=== PATIENT | female | born 1930 ===

== ENCOUNTER 2017-02-10 16:55 | Emergency (ER) | payer MEDICARE ==
[2017-02-10 17:02] VITALS: BMI 23.5
[2017-02-10 17:05] VITALS: BP 136/75; PULSE 80; RESP 17; TEMP 97.8; O2SAT 98
--- NOTE | 2017-02-10 17:36 | ED PDOC ---
Arrival/HPI - General Chief Complaint: ENT Problem Time Seen by Provider: 02/10/17 17:20 Historian: Patient - History of Present Illness Narrative History of Present Illness (Text): 02/10/17 17:33 86 yo female h/o HTN, CAD, CHF, Pacemaker, AV Replacement, (not diabetic patient states), presents to the ED c/o throat pain x 3 days. Mild cough. No nasal congestion, runny nose or fever. She is able to drink fluids and eat well. When she eats it irritates her throat but no odynophagia. No sensation of throat swelling. No trouble breathing. No neck pain. No headache, dizziness or lightheadedness. No weakness. PMD: Dr. Gaspar Past Medical History - Provider Review Nursing Documentation Reviewed: Yes - Infectious Disease Hx of Infectious Diseases: None - Tetanus Immunization Tetanus Immunization: Unknown - Cardiac Hx Cardiac Disorders: Yes Hx Congestive Heart Failure: Yes Hx Hypertension: Yes Hx Pacemaker: Yes - Pulmonary Hx Respiratory Disorders: No - Neurological Hx Neurological Disorder: Yes Hx Seizures: Yes - HEENT Hx HEENT Disorder: No - Renal Hx Renal Disorder: No - Endocrine/Metabolic Hx Endocrine Disorders: Yes Hx Diabetes Mellitus Type 2: Yes Hx Hypothyroidism: Yes - Hematological/Oncological Hx Blood Disorders: No - Integumentary Hx Dermatological Disorder: No - Musculoskeletal/Rheumatological Hx Falls: No - Gastrointestinal Hx Gastrointestinal Disorders: No Other/Comment: Hx Gastric Bypass - Genitourinary/Gynecological Hx Genitourinary Disorders: No - Psychiatric Hx Psychophysiologic Disorder: No Hx Depression: No Hx Emotional Abuse: No Hx Physical Abuse: No Hx Substance Use: No - Surgical History Hx Cardiac Catheterization: Yes Hx Gastric Bypass Surgery: Yes Hx Open Heart Surgery: Yes Hx Orthopedic Surgery: Yes (right hip fx 2 pins) Other/Comment: valve replacement - Anesthesia Hx Anesthesia: Yes Hx Anesthesia Reactions: No Hx Malignant Hyperthermia: No - Suicidal Assessment Feels Threatened In Home Enviroment: No Family/Social History - Physician Review Nursing Documentation Reviewed: Yes Family/Social History: No Known Family HX Smoking Status: Former Smoker Hx Alcohol Use: No Hx Substance Use: No Hx Substance Use Treatment: No Allergies/Home Meds Allergies/Adverse Reactions: Allergies aspirin Allergy (Intermediate, Verified 02/10/17 17:02) PAIN ABDOMINAL DISCOMFORT Penicillins Allergy (Mild, Verified 02/10/17 17:02) ITCHING Home Medications: Home Meds Medication Instructions Recorded Confirmed Warfarin [Coumadin] 6 mg PO DAILY 03/02/12 02/10/17 Donepezil [Aricept] 5 mg PO DAILY 10/18/13 02/10/17 Furosemide [Lasix] 40 mg PO DAILY 02/10/17 02/10/17 Mirtazapine 15 mg PO DAILY 02/10/17 02/10/17 Potassium Chloride [K-Dur 20] 20 meq PO DAILY 02/10/17 02/10/17 Simvastatin 10 mg PO DAILY 02/10/17 02/10/17 lamoTRIgine [LaMICtal] 100 mg PO BID 02/10/17 02/10/17 Review of Systems - Review of Systems Constitutional: Normal Eyes: Normal ENT: Voice Changes (mild hoarseness), Sore Throat. absent: Tinnitus, Rhinorrhea , Epistaxis, Sinus Congestion Respiratory: Cough. absent: SOB, Sputum, Wheezing Cardiovascular: Normal Gastrointestinal: Normal Genitourinary Female: Normal Musculoskeletal: Normal Skin: Normal Neurological: Normal Endocrine: Normal Hemo/Lymphatic: Normal Psychiatric: Normal Physical Exam Vital Signs Reviewed: Yes Vital Signs Temp Pulse Resp BP Pulse Ox 02/10/17 17:04 97.8 F 80 17 136/75 98 Temperature: Afebrile Blood Pressure: Normal Pulse: Regular Respiratory Rate: Normal Appearance: Positive for: Well-Appearing, Non-Toxic, Comfortable Pain Distress: None Mental Status: Positive for: Alert and Oriented X 3 - Systems Exam Head: Present: Atraumatic, Normocephalic Pupils: Present: PERRL Extroacular Muscles: Present: EOMI Conjunctiva: Present: Normal Ears: Present: Normal Mouth: Present: Moist Mucous Membranes Pharnyx: Present: ERYTHEMA, EXUDATE (right side), Muffled/Hoarse Voice (mild hoarseness; no muffled sounds). No: Uvular Deviation, Strider, Soft Palate/ Uvular Edema Neck: Present: Normal Range of Motion, Lymphadenopathy (right ant cervical LN tender). No: Bruit Respiratory/Chest: Present: Clear to Auscultation, Good Air Exchange. No: Respiratory Distress, Accessory Muscle Use Cardiovascular: Present: Regular Rate and Rhythm, Normal S1, S2. No: Murmurs Abdomen: Present: Normal Bowel Sounds. No: Tenderness, Distention, Peritoneal Signs Back: Present: Normal Inspection Upper Extremity: Present: Normal Inspection. No: Cyanosis, Edema Lower Extremity: Present: Normal Inspection. No: Edema Neurological: Present: GCS=15, CN II-XII Intact, Speech Normal Skin: Present: Warm, Dry, Normal Color. No: Rashes Psychiatric: Present: Alert, Oriented x 3, Normal Insight, Normal Concentration Medical Decision Making ED Course and Treatment: 02/10/17 17:42 86 yo female with throat pain with exam finding consistent with pharyngitis -- allergic to PCN so will give Azithromycin 500mg PO daily x 5 days and have her f/u with her PMD in 2 days. She and her son are aware that if symptoms worsen, fever, unable to drink fluids or any other concern to return to the ED. [place] used since it's patient's primary language. - Medication Orders Current Medication Orders: Discontinued Medications Azithromycin (Zithromax) 500 mg PO STAT STA PRN Reason: Protocol Stop: 02/10/17 17:30 Disposition/Present on Arrival - Present on Arrival Any Indicators Present on Arrival: No History of DVT/PE: No History of Uncontrolled Diabetes: No Urinary Catheter: No History of Decub. Ulcer: No History Surgical Site Infection Following: Orthopedic Procedures, None - Disposition Have Diagnosis and Disposition been Completed?: Yes Diagnosis: Pharyngitis Disposition: HOME/ ROUTINE Disposition Time: 17:43 Patient Plan: Discharge Patient Problems: Current Active Problems Problem Status Onset Pharyngitis Acute Condition: GOOD Discharge Instructions (ExitCare): Pharyngitis (ED) Additional Instructions: Ms. Knight, thank you for letting us take care of you today. Your provider was Dr. Zhang. You were treated for Pharyngitis. The emergency medical care you received today was directed at your acute symptoms. If you were prescribed any medication, please fill it and take as directed. It may take several days for your symptoms to resolve. Return to the Emergency Department if your symptoms worsen, do not improve, or if you have any other problems. Please contact your doctor or call one of the physicians/clinics you have been referred to that are listed on the Patient Visit Information form that is included in your discharge packet. Bring any paperwork you were given at discharge with you along with any medications you are taking to your follow up visit. Our treatment cannot replace ongoing medical care by a primary care provider (PCP) outside of the emergency department. Thank you for allowing the [facility] team to be part of your care today. If you had an X-Ray or CT scan: A Radiologist will review the ED reading if any change in treatment is needed we will contact you. If you had a blood, urine, or wound culture: It will take several days for the results, if any change in treatment is needed we will contact you. If you had an STI test: It will take 48 hours for the results. Please call after 1 week if you have not heard back. Prescriptions: Azithromycin [Zithromax] 500 mg PO DAILY #4 tablet Referrals: Kortney Gaspar DO [Primary Care Provider] - Follow up with primary
== END 2017-02-10 17:54 | disposition home or self-care (01) ==
LOC: ED 16:55
DX: J02.9 Acute pharyngitis, unspecified (principal); Z87.891 Personal history of nicotine dependence

== ENCOUNTER 2017-02-22 18:41 | Emergency (ER) | payer MEDICARE ==
[2017-02-22 18:41] VITALS: BMI 23.5
[2017-02-22 18:51] VITALS: BP 123/77; PULSE 93; RESP 16; TEMP 98.3; O2SAT 96
--- NOTE | 2017-02-22 19:40 | ED PDOC ---
Arrival/HPI - General Chief Complaint: ENT Problem Time Seen by Provider: 02/22/17 19:36 Historian: Patient - History of Present Illness Narrative History of Present Illness (Text): 02/22/17 19:40 Terra Knight is an 86 year old female who presents to the emergency department complaining of right ear pain for a few days. Patient states that her pain is on that outside of her ear and not in the inside. Patient notes that she does not have any difficulty hearing. Patient denies any nausea, fevers , chest pain, headache, or any other complaint at this time. PMD: Dr. Gaspar Time/Duration: < week Symptom Onset: Gradual Symptom Course: Unchanged Severity Level: Mild Activities at Onset: Light Context: Home Past Medical History - Provider Review Nursing Documentation Reviewed: Yes - Infectious Disease Hx of Infectious Diseases: None - Tetanus Immunization Tetanus Immunization: Unknown - Cardiac Hx Cardiac Disorders: Yes Hx Congestive Heart Failure: Yes Hx Hypertension: Yes Hx Pacemaker: Yes - Pulmonary Hx Respiratory Disorders: No - Neurological Hx Neurological Disorder: Yes Hx Seizures: Yes - HEENT Hx HEENT Disorder: No - Renal Hx Renal Disorder: No - Endocrine/Metabolic Hx Endocrine Disorders: Yes Hx Diabetes Mellitus Type 2: Yes Hx Hypothyroidism: Yes - Hematological/Oncological Hx Blood Disorders: No - Integumentary Hx Dermatological Disorder: No - Musculoskeletal/Rheumatological Hx Falls: No - Gastrointestinal Hx Gastrointestinal Disorders: Yes Other/Comment: Hx Gastric Bypass - Genitourinary/Gynecological Hx Genitourinary Disorders: No - Psychiatric Hx Psychophysiologic Disorder: No Hx Depression: No Hx Emotional Abuse: No Hx Physical Abuse: No Hx Substance Use: No - Surgical History Hx Cardiac Catheterization: Yes Hx Gastric Bypass Surgery: Yes Hx Open Heart Surgery: Yes Hx Orthopedic Surgery: Yes (right hip fx 2 pins) Other/Comment: valve replacement - Anesthesia Hx Anesthesia: Yes Hx Anesthesia Reactions: No Hx Malignant Hyperthermia: No - Suicidal Assessment Feels Threatened In Home Enviroment: No Family/Social History - Physician Review Nursing Documentation Reviewed: Yes Family/Social History: No Known Family HX Smoking Status: Former Smoker Hx Alcohol Use: No Hx Substance Use: No Hx Substance Use Treatment: No Allergies/Home Meds Allergies/Adverse Reactions: Allergies aspirin Allergy (Intermediate, Verified 02/22/17 18:48) PAIN ABDOMINAL DISCOMFORT Penicillins Allergy (Mild, Verified 02/22/17 18:48) ITCHING Home Medications: Home Meds Medication Instructions Recorded Confirmed Warfarin [Coumadin] 6 mg PO DAILY 03/02/12 02/10/17 Donepezil [Aricept] 5 mg PO DAILY 10/18/13 02/10/17 Furosemide [Lasix] 40 mg PO DAILY 02/10/17 02/10/17 Mirtazapine 15 mg PO DAILY 02/10/17 02/10/17 Potassium Chloride [K-Dur 20] 20 meq PO DAILY 02/10/17 02/10/17 Simvastatin 10 mg PO DAILY 02/10/17 02/10/17 lamoTRIgine [LaMICtal] 100 mg PO BID 02/10/17 02/10/17 Physical Exam - Physical Exam Narrative Physical Exam (Text): - Review of Systems Constitutional: Normal. absent: Fatigue, Weight Change, Fevers Eyes: Normal ENT: right ear pain Respiratory: Normal absent: SOB, Cough, Sputum Cardiovascular: Normal absent: Chest pain, Palpitations, Syncope Gastrointestinal: Normal absent: Abdominal pain, Diarrhea, Nausea, Vomiting Genitourinary: Normal. absent: Dysuria, Frequency, Hematuria Musculoskeletal: Normal. absent: Arthralgias, Back Pain, Neck Pain Skin: Normal Neurological: Normal absent: Focal Weakness Endocrine: Normal Hemo/Lymphatic: Normal Psychiatric: Normal - Physical exam Patient appears age appropriate, speaking full sentences without difficulty - Systems Exam Head: Right ear swelling over tragus and antitragus. Mild swelling over external canal. Unremarkable internal canal. Normal TM membrane. No mastoid tenderness. Neck is supple. Pupils: Present: PERRL Extraocular Muscles: Present: EOMI Conjunctiva: Present: Normal Mouth: Present: Moist Mucous Membranes Neck: Neck is supple. Present: Normal Range of Motion. No: MIDLINE TENDERNESS, Paraspinal Tenderness Respiratory/Chest: Present: Clear to Auscultation, Good Air Exchange. No: Respiratory Distress, Accessory Muscle Use, Tachypnic Cardiovascular: Present: Regular Rate and Rhythm, Normal S1, S2, Peripheral Pulses Present. No: Murmurs Abdomen: Present: Normal Bowel Sounds, No: Tenderness, Peritoneal Signs, Rebound, Guarding, Distention Back: Present: Normal Inspection. No: Midline Tenderness, Paraspinal Tenderness Upper Extremity: Present: Normal Inspection. No: Cyanosis, Edema Lower Extremity: Present: Normal Inspection. No: Edema Neurological: Present: GCS=15, Speech Normal, cranial nerves II through XII fully intact with no cerebellar abnormality, neuro-sensory fully intact. No focal neurological deficits. Skin: Present: Warm, Dry, Normal Color. No: Rashes Lymphatic: Present: OX3, NI, NC Psychiatric: Present: Alert, Oriented x 3, Normal Insight, Normal Concentration Vital Signs Reviewed: Yes Vital Signs Temp Pulse Resp BP Pulse Ox 02/22/17 18:48 98.3 F 93 H 16 123/77 96 Temperature: Afebrile Blood Pressure: Normal Pulse: Tachycardic Respiratory Rate: Normal Appearance: Positive for: Well-Appearing, Non-Toxic, Comfortable Pain Distress: None Mental Status: Positive for: Alert and Oriented X 3 Medical Decision Making ED Course and Treatment: 02/22/17 19:40 Impression: 86 year old female complaining of right ear pain for a few days Differential Diagnosis included but are not limited to: Otitis Externa Plan: -- Reassess and disposition Prior Visits: Notes and results from previous visits were reviewed. Patient last seen in the ED on 02/10/17 for throat pain for 3 days. Patient was discharged home. Progress Notes: 02/22/17 19:45 Patient is instructed to follow up with PMD and ENT specialist. Pt states she understands to return to the ER right away for new or worsening symptoms or for inability to f/u with PMD or specialist as instructed. Patient states that she fully agrees with and understands discharge instructions. States that she agrees with the plan and disposition. Verbalized and repeated discharge instructions and plan. I have given the patient opportunity to ask any additional questions. - Scribe Statement The provider has reviewed the documentation as recorded by the Hernando Levin Provider Scribe Attestation: All medical record entries made by the Zairaibyang were at my direction and personally dictated by me. I have reviewed the chart and agree that the record accurately reflects my personal performance of the history, physical exam, medical decision making, and the department course for this patient. I have also personally directed, reviewed, and agree with the discharge instructions and disposition. Disposition/Present on Arrival - Present on Arrival Any Indicators Present on Arrival: No History of DVT/PE: No History of Uncontrolled Diabetes: No Urinary Catheter: No History of Decub. Ulcer: No History Surgical Site Infection Following: None - Disposition Have Diagnosis and Disposition been Completed?: Yes Diagnosis: Otalgia Disposition: HOME/ ROUTINE Disposition Time: 19:39 Patient Plan: Discharge Patient Problems: Current Active Problems Problem Status Onset Otalgia Acute Condition: GOOD Discharge Instructions (ExitCare): Otitis Externa (ED), Earache (ED) Additional Instructions: PLEASE RETURN TO THE EMERGENCY DEPARTMENT FOR NEW OR WORSENING SYMPTOMS. RETURN RIGHT AWAY IF YOU CANNOT FOLLOW UP WITH YOUR PRIMARY CARE DOCTOR, CLINIC, OR SPECIALIST IN 1-2 DAYS. Prescriptions: Polymyxin/Trimethoprim Sulfate [Polytrim Ophth Soln] 5 drop AD QID #1 bottle Referrals: Kortney Gaspar DO [Primary Care Provider] - Follow up with primary Andres Oneill DO [Staff Provider] - Follow up with primary
--- NOTE | 2017-02-22 19:43 | ED PDOC ---
Arrival/HPI - General Chief Complaint: ENT Problem Time Seen by Provider: 02/22/17 19:36 Historian: Patient - History of Present Illness Narrative History of Present Illness (Text): 02/22/17 19:40 Terra Knight is an 86 year old female who presents to the emergency department complaining of right ear pain for a few days. Patient states that her pain is on that outside of her ear and not in the inside. Patient notes that she does not have any difficulty hearing. Patient denies any nausea, fevers , chest pain, headache, or any other complaint at this time. PMD: Dr. Gaspar Time/Duration: < week Symptom Onset: Gradual Symptom Course: Unchanged Activities at Onset: Rest Context: Home Past Medical History - Provider Review Nursing Documentation Reviewed: Yes - Infectious Disease Hx of Infectious Diseases: None - Tetanus Immunization Tetanus Immunization: Unknown - Cardiac Hx Cardiac Disorders: Yes Hx Congestive Heart Failure: Yes Hx Hypertension: Yes Hx Pacemaker: Yes - Pulmonary Hx Respiratory Disorders: No - Neurological Hx Neurological Disorder: Yes Hx Seizures: Yes - HEENT Hx HEENT Disorder: No - Renal Hx Renal Disorder: No - Endocrine/Metabolic Hx Endocrine Disorders: Yes Hx Diabetes Mellitus Type 2: Yes Hx Hypothyroidism: Yes - Hematological/Oncological Hx Blood Disorders: No - Integumentary Hx Dermatological Disorder: No - Musculoskeletal/Rheumatological Hx Falls: No - Gastrointestinal Hx Gastrointestinal Disorders: Yes Other/Comment: Hx Gastric Bypass - Genitourinary/Gynecological Hx Genitourinary Disorders: No - Psychiatric Hx Psychophysiologic Disorder: No Hx Depression: No Hx Emotional Abuse: No Hx Physical Abuse: No Hx Substance Use: No - Surgical History Hx Cardiac Catheterization: Yes Hx Gastric Bypass Surgery: Yes Hx Open Heart Surgery: Yes Hx Orthopedic Surgery: Yes (right hip fx 2 pins) Other/Comment: valve replacement - Anesthesia Hx Anesthesia: Yes Hx Anesthesia Reactions: No Hx Malignant Hyperthermia: No - Suicidal Assessment Feels Threatened In Home Enviroment: No Family/Social History - Physician Review Nursing Documentation Reviewed: Yes Family/Social History: No Known Family HX Smoking Status: Former Smoker Hx Alcohol Use: No Hx Substance Use: No Hx Substance Use Treatment: No Allergies/Home Meds Allergies/Adverse Reactions: Allergies aspirin Allergy (Intermediate, Verified 02/22/17 18:48) PAIN ABDOMINAL DISCOMFORT Penicillins Allergy (Mild, Verified 02/22/17 18:48) ITCHING Home Medications: Home Meds Medication Instructions Recorded Confirmed Warfarin [Coumadin] 6 mg PO DAILY 03/02/12 02/10/17 Donepezil [Aricept] 5 mg PO DAILY 10/18/13 02/10/17 Furosemide [Lasix] 40 mg PO DAILY 02/10/17 02/10/17 Mirtazapine 15 mg PO DAILY 02/10/17 02/10/17 Potassium Chloride [K-Dur 20] 20 meq PO DAILY 02/10/17 02/10/17 Simvastatin 10 mg PO DAILY 02/10/17 02/10/17 lamoTRIgine [LaMICtal] 100 mg PO BID 02/10/17 02/10/17 Physical Exam - Physical Exam Narrative Physical Exam (Text): - Review of Systems Constitutional: Normal. absent: Fatigue, Weight Change, Fevers Eyes: Normal ENT: right ear pain Respiratory: Normal absent: SOB, Cough, Sputum Cardiovascular: Normal absent: Chest pain, Palpitations, Syncope Gastrointestinal: Normal absent: Abdominal pain, Diarrhea, Nausea, Vomiting Genitourinary: Normal. absent: Dysuria, Frequency, Hematuria Musculoskeletal: Normal. absent: Arthralgias, Back Pain, Neck Pain Skin: Normal Neurological: Normal absent: Focal Weakness Endocrine: Normal Hemo/Lymphatic: Normal Psychiatric: Normal - Physical exam Patient appears age appropriate, speaking full sentences without difficulty - Systems Exam Head: Right ear swelling over tragus and antitragus. Mild swelling over external canal. Unremarkable internal canal. Normal TM membrane. No mastoid tenderness. Neck is supple. Pupils: Present: PERRL Extraocular Muscles: Present: EOMI Conjunctiva: Present: Normal Mouth: Present: Moist Mucous Membranes Neck: Neck is supple. Present: Normal Range of Motion. No: MIDLINE TENDERNESS, Paraspinal Tenderness Respiratory/Chest: Present: Clear to Auscultation, Good Air Exchange. No: Respiratory Distress, Accessory Muscle Use, Tachypnic Cardiovascular: Present: Regular Rate and Rhythm, Normal S1, S2, Peripheral Pulses Present. No: Murmurs Abdomen: Present: Normal Bowel Sounds, No: Tenderness, Peritoneal Signs, Rebound, Guarding, Distention Back: Present: Normal Inspection. No: Midline Tenderness, Paraspinal Tenderness Upper Extremity: Present: Normal Inspection. No: Cyanosis, Edema Lower Extremity: Present: Normal Inspection. No: Edema Neurological: Present: GCS=15, Speech Normal, cranial nerves II through XII fully intact with no cerebellar abnormality, neuro-sensory fully intact. No focal neurological deficits. Skin: Present: Warm, Dry, Normal Color. No: Rashes Lymphatic: Present: OX3, NI, NC Psychiatric: Present: Alert, Oriented x 3, Normal Insight, Normal Concentration Vital Signs Reviewed: Yes Vital Signs Temp Pulse Resp BP Pulse Ox 02/22/17 18:48 98.3 F 93 H 16 123/77 96 Temperature: Afebrile Blood Pressure: Normal Pulse: Tachycardic Respiratory Rate: Normal Appearance: Positive for: Well-Appearing, Non-Toxic, Comfortable Pain Distress: None Mental Status: Positive for: Alert and Oriented X 3 Medical Decision Making ED Course and Treatment: 02/22/17 19:40 Impression: 86 year old female complaining of right ear pain for a few days Differential Diagnosis included but are not limited to: Otitis Externa Plan: -- Reassess and disposition Prior Visits: Notes and results from previous visits were reviewed. Patient last seen in the ED on 02/10/17 for throat pain for 3 days. Patient was discharged home. Progress Notes: 02/22/17 19:45 Patient is instructed to follow up with PMD and ENT specialist. Disposition/Present on Arrival - Present on Arrival History of DVT/PE: No History of Uncontrolled Diabetes: No Urinary Catheter: No History of Decub. Ulcer: No History Surgical Site Infection Following: None - Disposition Diagnosis: Otalgia Disposition: HOME/ ROUTINE Patient Problems: Current Active Problems Problem Status Onset Otalgia Acute Discharge Instructions (ExitCare): Otitis Externa (ED), Earache (ED) Additional Instructions: PLEASE RETURN TO THE EMERGENCY DEPARTMENT FOR NEW OR WORSENING SYMPTOMS. RETURN RIGHT AWAY IF YOU CANNOT FOLLOW UP WITH YOUR PRIMARY CARE DOCTOR, CLINIC, OR SPECIALIST IN 1-2 DAYS. Prescriptions: Polymyxin/Trimethoprim Sulfate [Polytrim Ophth Soln] 5 drop AD QID #1 bottle Referrals: Andres Oneill DO [Staff Provider] - Follow up with primary Kortney Gaspar DO [Primary Care Provider] - Follow up with primary
== END 2017-02-22 19:50 | disposition home or self-care (01) ==
LOC: ED 18:41
DX: H92.01 Otalgia, right ear (principal); E11.9 Type 2 diabetes mellitus without complications; I10 Essential (primary) hypertension; Z87.891 Personal history of nicotine dependence

== ENCOUNTER 2017-04-18 15:14 | Emergency (ER) | payer MEDICARE ==
[2017-04-18 15:18] VITALS: BMI 26.5
[2017-04-18 15:23] VITALS: RESP 18; TEMP 98.5
--- NOTE | 2017-04-18 15:51 | ED PDOC ---
Arrival/HPI - General Chief Complaint: Trauma Time Seen by Provider: 04/18/17 15:18 - History of Present Illness Narrative History of Present Illness (Text): 86 y/o F p/w mechanical fall, struck back/top of head but denies LOC, nausea, vomiting. She complains of pain only in the head. She reports pain in the R hip but states that it is chronic and not from the fall and not worse today. Past Medical History - Infectious Disease Hx of Infectious Diseases: None - Tetanus Immunization Tetanus Immunization: Unknown - Cardiac Hx Cardiac Disorders: Yes Hx Congestive Heart Failure: Yes Hx Hypertension: Yes Hx Pacemaker: Yes - Pulmonary Hx Respiratory Disorders: No - Neurological Hx Neurological Disorder: Yes Hx Seizures: Yes - HEENT Hx HEENT Disorder: No - Renal Hx Renal Disorder: No - Endocrine/Metabolic Hx Endocrine Disorders: Yes Hx Diabetes Mellitus Type 2: Yes Hx Hypothyroidism: Yes - Hematological/Oncological Hx Blood Disorders: No - Integumentary Hx Dermatological Disorder: No - Musculoskeletal/Rheumatological Hx Falls: No - Gastrointestinal Hx Gastrointestinal Disorders: Yes Other/Comment: Hx Gastric Bypass - Genitourinary/Gynecological Hx Genitourinary Disorders: No - Psychiatric Hx Psychophysiologic Disorder: No Hx Depression: No Hx Emotional Abuse: No Hx Physical Abuse: No Hx Substance Use: No - Surgical History Hx Cardiac Catheterization: Yes Hx Gastric Bypass Surgery: Yes Hx Open Heart Surgery: Yes Hx Orthopedic Surgery: Yes (right hip fx 2 pins) Other/Comment: valve replacement - Anesthesia Hx Anesthesia: Yes Hx Anesthesia Reactions: No Hx Malignant Hyperthermia: No - Suicidal Assessment Feels Threatened In Home Enviroment: No Family/Social History Family/Social History: No Known Family HX Smoking Status: Former Smoker Hx Alcohol Use: No Hx Substance Use: No Hx Substance Use Treatment: No Allergies/Home Meds Allergies/Adverse Reactions: Allergies aspirin Allergy (Intermediate, Verified 02/22/17 18:48) PAIN ABDOMINAL DISCOMFORT Penicillins Allergy (Mild, Verified 02/22/17 18:48) ITCHING Home Medications: Home Meds Medication Instructions Recorded Confirmed Warfarin [Coumadin] 6 mg PO DAILY 03/02/12 04/18/17 Donepezil [Aricept] 5 mg PO DAILY 10/18/13 04/18/17 Furosemide [Lasix] 40 mg PO DAILY 02/10/17 04/18/17 Mirtazapine 15 mg PO DAILY 02/10/17 04/18/17 Potassium Chloride [K-Dur 20] 20 meq PO DAILY 02/10/17 04/18/17 Simvastatin 10 mg PO DAILY 02/10/17 04/18/17 lamoTRIgine [LaMICtal] 100 mg PO BID 02/10/17 04/18/17 Review of Systems - Physician Review All systems were reviewed & negative as marked: Yes - Review of Systems Constitutional: absent: Fevers Cardiovascular: absent: Chest Pain Physical Exam - Physical Exam Narrative Physical Exam (Text): Constitutional: No acute distress. Head: Parietal scalp hematoma. Eyes: PERRL. ENT: Moist mucous membranes. Neck: Supple. No midline tenderness. Cardiovascular: Regular rate. Chest: No tenderness. Respiratory: Clear to auscultation bilaterally. GI: Soft. Nontender. Nondistended. Back: No CVA tenderness. No midline tenderness. Musculoskeletal: No tenderness or swelling of extremities. full range of motion x4. Skin: No rash. Neurologic: Alert, no focal deficit. Vital Signs Temp Pulse Resp BP Pulse Ox 04/18/17 15:22 98.5 F 75 18 152/96 H 98 Medical Decision Making ED Course and Treatment: Acetaminophen for pain. CT Head to rule out ICH. Patient states that if CT is negative, she would like to go home and does not wish to stay in the hospital. 04/18/17 16:26 HISTORY: fall, hematoma COMPARISON: 12/10/2016 TECHNIQUE: Axial computed tomography images were obtained through the head/brain without intravenous contrast. Radiation dose: Total exam DLP = 734 mGy-cm. This CT exam was performed using one or more of the following dose reduction techniques: Automated exposure control, adjustment of the mA and/or kV according to patient size, and/or use of iterative reconstruction technique. FINDINGS: HEMORRHAGE: No intracranial hemorrhage. BRAIN: No mass effect or edema. Chronic microvascular changes are seen in the periventricular white matter. VENTRICLES: Unremarkable. No hydrocephalus. CALVARIUM: Unremarkable. PARANASAL SINUSES: Unremarkable as visualized. No significant inflammatory changes. MASTOID AIR CELLS: Unremarkable as visualized. No inflammatory changes. OTHER FINDINGS: None. IMPRESSION: No acute findings Discharged home, f/u PMD, return to ER for worsening pain, vision change, vomiting, numbness, weakness, frequent falls, or any other problem. - RAD Interpretation Radiology Orders: 04/18/17 15:29 HEAD W/O CONTRAST [CT] Stat - Medication Orders Current Medication Orders: Discontinued Medications Acetaminophen (Tylenol 325mg Tab) 975 mg PO STAT STA Stop: 04/18/17 15:30 Last Admin: 04/18/17 16:00 Dose: 975 mg Disposition/Present on Arrival - Present on Arrival Any Indicators Present on Arrival: No History of DVT/PE: No History of Uncontrolled Diabetes: No Urinary Catheter: No History of Decub. Ulcer: No History Surgical Site Infection Following: None - Disposition Have Diagnosis and Disposition been Completed?: Yes Diagnosis: Fall, Scalp hematoma Disposition: HOME/ ROUTINE Disposition Time: 16:27 Patient Plan: Discharge Patient Problems: Current Active Problems Problem Status Onset Fall Acute Scalp hematoma Acute Condition: STABLE Discharge Instructions (ExitCare): Hematoma (ED) Referrals: Kortney Gaspar DO [Primary Care Provider] - Follow up with primary
--- NOTE | 2017-04-18 16:25 | CT ---
PROCEDURE: CT HEAD WITHOUT CONTRAST. HISTORY: fall, hematoma COMPARISON: 12/10/2016 TECHNIQUE: Axial computed tomography images were obtained through the head/brain without intravenous contrast. Radiation dose: Total exam DLP = 734 mGy-cm. This CT exam was performed using one or more of the following dose reduction techniques: Automated exposure control, adjustment of the mA and/or kV according to patient size, and/or use of iterative reconstruction technique. FINDINGS: HEMORRHAGE: No intracranial hemorrhage. BRAIN: No mass effect or edema. Chronic microvascular changes are seen in the periventricular white matter. VENTRICLES: Unremarkable. No hydrocephalus. CALVARIUM: Unremarkable. PARANASAL SINUSES: Unremarkable as visualized. No significant inflammatory changes. MASTOID AIR CELLS: Unremarkable as visualized. No inflammatory changes. OTHER FINDINGS: None. IMPRESSION: No acute findings
[2017-04-18 16:56] VITALS: BP 148/82; PULSE 68; O2SAT 95
== END 2017-04-18 16:56 | disposition home or self-care (01) ==
LOC: ED 15:14
DX: S00.03XA Contusion of scalp, initial encounter (principal); W19.XXXA Unspecified fall, initial encounter

== ENCOUNTER 2018-02-16 23:46 | Inpatient (IN) | payer MEDICARE ==
[2018-02-16 23:46] VITALS: BMI 26.5
--- NOTE | 2018-02-17 00:15 | ED PDOC ---
Arrival/HPI <Woo Olson - Last Filed: 02/17/18 04:53> - General Historian: Patient - History of Present Illness Time/Duration: Other (see hpi) Context: Home <Joann Marquez - Last Filed: 02/17/18 18:40> - General Time Seen by Provider: 02/17/18 00:02 - History of Present Illness Narrative History of Present Illness (Text): 02/17/18 00:15 This 87 yo female h/o HTN, CAD, CHF, Pacemaker, AV Replacement, (not diabetic patient states), presents to the ED c/o generalized abdominal pain since last night. Patient stated she was recently Dx. with abdominal mass, and she has an appointment to See Dr. Bustos, Urologist on February 16. Patient denies sob, cp, dizziness, abdominal pain, urinary symptoms, or abnormal gait. (Joann Marquez) Past Medical History - Provider Review Nursing Documentation Reviewed: Yes - Infectious Disease Hx of Infectious Diseases: None - Tetanus Immunization Tetanus Immunization: Unknown - Cardiac Hx Cardiac Disorders: Yes Hx Congestive Heart Failure: Yes Hx Hypertension: Yes Hx Pacemaker: Yes - Pulmonary Hx Respiratory Disorders: No - Neurological Hx Neurological Disorder: Yes Hx Seizures: Yes - HEENT Hx HEENT Disorder: No - Renal Hx Renal Disorder: No - Endocrine/Metabolic Hx Endocrine Disorders: Yes Hx Diabetes Mellitus Type 2: Yes Hx Hypothyroidism: Yes - Hematological/Oncological Hx Blood Disorders: No - Integumentary Hx Dermatological Disorder: No - Musculoskeletal/Rheumatological Hx Falls: No - Gastrointestinal Hx Gastrointestinal Disorders: Yes Other/Comment: Hx Gastric Bypass - Genitourinary/Gynecological Hx Genitourinary Disorders: No - Psychiatric Hx Psychophysiologic Disorder: No Hx Depression: No Hx Emotional Abuse: No Hx Physical Abuse: No Hx Substance Use: No - Surgical History Hx Cardiac Catheterization: Yes Hx Gastric Bypass Surgery: Yes Hx Open Heart Surgery: Yes Hx Orthopedic Surgery: Yes (right hip fx 2 pins) Other/Comment: valve replacement - Anesthesia Hx Anesthesia: Yes Hx Anesthesia Reactions: No Hx Malignant Hyperthermia: No - Suicidal Assessment Feels Threatened In Home Enviroment: No <Joann Marquez - Last Filed: 02/17/18 18:40> Family/Social History - Physician Review Nursing Documentation Reviewed: Yes Family/Social History: Other (noncontributory) Smoking Status: Former Smoker Hx Alcohol Use: No Hx Substance Use: No Hx Substance Use Treatment: No <Joann Marquez [place] - Last Filed: 02/17/18 18:40> Allergies/Home Meds <Woo Olson - Last Filed: 02/17/18 04:53> <Joann Marquez [place] - Last Filed: 02/17/18 18:40> Allergies/Adverse Reactions: Allergies aspirin Allergy (Intermediate, Verified 02/22/17 18:48) PAIN ABDOMINAL DISCOMFORT Penicillins Allergy (Mild, Verified 02/22/17 18:48) ITCHING Home Medications: Home Meds Medication Instructions Recorded Confirmed Warfarin [Coumadin] 6 mg PO DAILY 03/02/12 02/17/18 Donepezil [Aricept] 5 mg PO DAILY 10/18/13 02/17/18 Furosemide [Lasix] 40 mg PO BID 02/10/17 02/17/18 Mirtazapine 15 mg PO DAILY 02/10/17 02/17/18 Potassium Chloride [K-Dur 20] 20 meq PO DAILY 02/10/17 02/17/18 Simvastatin 10 mg PO DAILY 02/10/17 02/17/18 lamoTRIgine [LaMICtal] 100 mg PO BID 02/10/17 02/17/18 Esomeprazole Magnesium [Nexium] 40 mg PO BID 02/17/18 02/17/18 Losartan Potassium 25 mg PO DAILY 02/17/18 02/17/18 Metoprolol Tartrate 25 mg PO BID 02/17/18 02/17/18 Review of Systems - Review of Systems Constitutional: Normal. absent: Fatigue, Weight Change, Fevers Eyes: Normal ENT: Normal Respiratory: Normal Cardiovascular: Normal Gastrointestinal: Abdominal Pain, Nausea, Other (abdominal mass as per patient) . absent: Constipation, Diarrhea, Vomiting Genitourinary Female: Normal Musculoskeletal: Normal Skin: Normal Neurological: Normal Endocrine: Normal Hemo/Lymphatic: Normal Psychiatric: Normal <Joann Marquez P - Last Filed: 02/17/18 18:40> Physical Exam Temperature: Afebrile Blood Pressure: Normal Pulse: Regular Respiratory Rate: Normal Appearance: Positive for: Well-Appearing, Non-Toxic, Comfortable Pain Distress: None - Systems Exam Head: Present: Atraumatic, Normocephalic Pupils: Present: PERRL Extroacular Muscles: Present: EOMI Conjunctiva: Present: Normal Mouth: Present: Moist Mucous Membranes Neck: Present: Normal Range of Motion Respiratory/Chest: Present: Clear to Auscultation, Good Air Exchange. No: Respiratory Distress, Accessory Muscle Use Cardiovascular: Present: Regular Rate and Rhythm, Normal S1, S2. No: Murmurs Abdomen: Present: Tenderness (mild generalized abdominal pain). No: Distention , Normal Bowel Sounds ((+) mild hyperactive BS), Peritoneal Signs, Rebound, Guarding, Hernias, Feeding Tubes Back: Present: Normal Inspection Upper Extremity: Present: Normal Inspection, Normal ROM, NORMAL PULSES. No: Cyanosis, Edema Lower Extremity: Present: Normal Inspection, NORMAL PULSES, Normal ROM. No: Edema Neurological: Present: GCS=15, CN II-XII Intact, Speech Normal Skin: Present: Warm, Dry, Normal Color. No: Rashes Psychiatric: Present: Alert, Normal Insight, Normal Concentration <Joann Marquez - Last Filed: 02/17/18 18:40> Vital Signs Temp Pulse Resp BP Pulse Ox 02/17/18 00:29 98.1 F 65 18 170/82 H 95 Medical Decision Making <Woo Olson - Last Filed: 02/17/18 04:53> Re-evaluation Time: 02:59 Reassessment Condition: Re-examined, Improving,but remains with symptoms - Lab Interpretations I have reviewed the lab results: Yes Interpretation: Abnormal lab values <Joann Marquez P - Last Filed: 02/17/18 18:40> ED Course and Treatment: Case endorsed to me by DELORES Marquez. Pending CT results. Will reevaluate and disposition patient. CT Abdomen and Pelvis With Intravenous Contrast EXAM DATE/TIME: 02/17/2018 12:19 AM Dictated and Authenticated by: Garima Villa MD 02/17/2018 4:38 AM Eastern Time ([place] & [place]) IMPRESSION: - LARGE 6.3 CM HETEROGENEOUSLY ENHANCING LEFT RENAL MASS, HIGHLY SUSPICIOUS FOR NEOPLASM. A RENAL CELL CARCINOMA COULD HAVE THIS APPEARANCE. FURTHER WORKUP IS RECOMMENDED. - No evidence of a significant acute process. - Left inguinal hernia, containing part of the sigmoid colon. No associated bowel obstruction. - See above for remaining findings. (Woo Olson) 02/17/18 02:[address] Dale regarding renal mass. Patient has an appointment to see Dr. Bustos. Patient has intractable abdominal pain. Dr. Dale agreed with plan for observation. (Joann Marquez) - Lab Interpretations Lab Results: 02/17/18 01:07 02/17/18 01:07 Lab Results 02/17/18 11:20: POC Glucose (mg/dL) 92 02/17/18 06:46: POC Glucose (mg/dL) 94 02/17/18 04:18: Urine Color Yellow, Urine Appearance Clear, Urine pH 6.5, Ur Specific [place] 1.010, Urine Protein Negative, Urine Glucose (UA) Negative, Urine Ketones Negative, Urine Blood Negative, Urine Nitrate Negative, Urine Bilirubin Negative, Urine Urobilinogen 0.2, Ur Leukocyte Esterase Trace H, Urine RBC 0 - 2, Urine WBC 1 - 3, Ur Epithelial Cells 0 - 2, Urine Bacteria Many 02/17/18 01:07: Sodium 146, Potassium 3.9, Chloride 106, Carbon Dioxide 24, Anion Gap 20, BUN 22 H, Creatinine 1.2, Est GFR ( Amer) 52, Est GFR (Non- Af Amer) 43, Random Glucose 117 H, Calcium 9.2, Total Bilirubin 0.3, AST 33, ALT 34, Alkaline Phosphatase 217 H, Lactate Dehydrogenase 613, Total Creatine Kinase 34 L, Troponin I < 0.01, Total Protein 8.8 H, Albumin 4.5, Globulin 4.4, Albumin/Globulin Ratio 1.0 L, Amylase 68, Lipase 93 02/17/18 01:07: PT 24.6 H, INR 2.12 H, APTT 39.0 H 02/17/18 01:07: WBC 7.9, RBC 3.79, Hgb 10.1 L, Hct 31.1 L, MCV 82.1, MCH 26.6, MCHC 32.5, RDW 16.5 H, Plt Count 350, MPV 9.2, Gran % 73.8 H, Lymph % (Auto) 14.9 L, Sac % (Auto) 7.8 H, Eos % (Auto) 3.2, Baso % (Auto) 0.3, Gran # 5.86, Lymph # (Auto) 1.2, Sac # (Auto) 0.6, Eos # (Auto) 0.3, Baso # (Auto) 0.02 - RAD Interpretation Radiology Orders: 02/17/18 00:19 ABD & PELVIS IV CONTRAST ONLY [CT] Stat CHEST PORTABLE [RAD] Stat - Medication Orders Current Medication Orders: Atorvastatin Calcium (Lipitor) 10 mg PO DIN [facility] Last Admin: 02/17/18 17:16 Dose: 10 mg Donepezil HCl (Aricept) 5 mg PO DAILY [facility] Furosemide (Lasix) 40 mg PO BID [facility] Last Admin: 02/17/18 11:45 Dose: 40 mg MAR Blood Pressure Document 02/17/18 11:45 DSZ (Rec: 02/17/18 11:45 DSZ [place] [id number]) Blood Pressure Blood Pressure (100/60-150/90) 123/67 Sodium Chloride (Sodium Chloride 0.9%) 1,000 mls @ 60 mls/hr IV .[id number] [facility] Last Admin: 02/17/18 04:22 Dose: 60 mls/hr eMAR Start Stop Document 02/17/18 04:22 STEPHEN (Rec: 02/17/18 04:23 STEPHEN [id number]) Intravenous Solution Start Date 02/17/18 Start Time 04:23 End Date 02/17/18 Lamotrigine (Lamictal) 100 mg PO BID [facility] PRN Reason: Protocol Last Admin: 02/17/18 11:45 Dose: 100 mg Behavioural Document 02/17/18 11:45 DSZ (Rec: 02/17/18 11:45 DSZ [place] [id number]) Maintenance Maintenance Dose Yes Re-Assess: Reassess Psych Meds Document 02/17/18 12:45 DSZ (Rec: 02/17/18 14:37 DSZ [place] [id number]) Reassess Psych Med Effective Losartan Potassium (Cozaar) 25 mg PO DAILY [facility] Last Admin: 02/17/18 11:45 Dose: 25 mg MAR Pulse and Blood Pressure Document 02/17/18 11:45 DSZ (Rec: 02/17/18 11:45 DSZ [place] [id number]) Pulse Pulse Rate (60-90) 63 Blood Pressure Blood Pressure (100/60-150/90) 123/67 Metoprolol Tartrate (Lopressor) 25 mg PO BID [facility] Last Admin: 02/17/18 11:45 Dose: 25 mg MAR Pulse and Blood Pressure Document 02/17/18 11:45 DSZ (Rec: 02/17/18 11:46 DSZ [id number]) Pulse Pulse Rate (60-90) 63 Blood Pressure Blood Pressure (100/60-150/90) 123/67 Morphine Sulfate (Morphine) 2 mg IVP Q4H PRN PRN Reason: Pain, moderate (4-7) Ondansetron HCl (Zofran Inj) 4 mg IVP Q4H PRN PRN Reason: Nausea/Vomiting Last Admin: 02/17/18 09:46 Dose: 4 mg IVP Administration Document 02/17/18 09:46 DSZ (Rec: 02/17/18 09:46 DSZ [id number]) Charges for Administration # of IVP Administrations 1 Potassium Chloride (K-Dur 20 Meq Er Tab) 20 meq PO DAILY [facility] Last Admin: 02/17/18 11:45 Dose: 20 meq Discontinued Medications Famotidine (Pepcid 20mg/50ml Premix) 20 mg in 50 mls @ 100 mls/hr IVPB ONCE ONE Stop: 02/17/18 00:59 Last Admin: 02/17/18 01:11 Dose: 100 mls/hr eMAR Start Stop Document 02/17/18 01:11 OCS (Rec: 02/17/18 01:[id number]) Intravenous Solution Start Date 02/17/18 Start Time 01:11 End Date 02/17/18 End time 01:41 Total Infusion Time 30 Sodium Chloride (Sodium Chloride 0.9%) 500 mls @ 999 mls/hr IV .Q31M STA Stop: 02/17/18 02:20 Last Admin: 02/17/18 02:11 Dose: 999 mls/hr eMAR Start Stop Document 02/17/18 02:11 OCS (Rec: 02/17/18 02:11 OCS [id number]) Intravenous Solution Start Date 02/17/18 Start Time 02:11 End Date 02/17/18 End time 02:41 Total Infusion Time 30 Morphine Sulfate (Morphine) 2 mg IVP STAT STA Stop: 02/17/18 02:23 Last Admin: 02/17/18 04:22 Dose: 2 mg MAR Pain Assessment Document 02/17/18 04:22 STEPHEN (Rec: 02/17/18 04:22 STEPHEN [id number]) Pain Reassessment Is this a pain reassessment? Yes Sleep Is patient sleeping during reassessment? No Presence of Pain Presence of Pain Yes Location Pain Location Body Site Abdomen IVP Administration Document 02/17/18 04:22 STEPHEN (Rec: 02/17/18 04:22 STEPHEN [id number]) Charges for Administration # of IVP Administrations 1 Re-Assess: [facility] Pain Assessment Document 02/17/18 05:22 KP (Rec: 02/17/18 06:36 KP [id number]) Pain Reassessment Is this a pain reassessment? Yes Sleep Is patient sleeping during reassessment? No Presence of Pain Presence of Pain No Morphine Sulfate (Morphine) 2 mg IVP Q6H PRN PRN Reason: Pain, severe (8-10) Stop: 02/17/18 09:00 Last Admin: 02/17/18 09:47 Dose: 2 mg [facility] Pain Assessment Document 02/17/18 09:47 DSZ (Rec: 02/17/18 09:48 DSZ [id number]) Pain Reassessment Is this a pain reassessment? No Sleep Is patient sleeping during reassessment? No Presence of Pain Presence of Pain Yes Pain Scale Used Pain Scale Used Numeric Location Left, Right or Bilateral Left Upper or Lower Lower Pain Location Body Site Abdomen Description Description Pressure Intensity of Pain at present 10 Acceptable Level of Pain 2 Pain Behavior Moaning Withdrawal from Touch Aggravating Factors Contant Alleviating Factors/Management Medication Techniques Alleviating Factors Medication IVP Administration Document 02/17/18 09:47 DSZ (Rec: 02/17/18 09:48 DSZ [id number]) Charges for Administration # of IVP Administrations 1 Re-Assess: [facility] Pain Assessment Document 02/17/18 10:47 DSZ (Rec: 02/17/18 11:38 DSZ [id number]) Pain Reassessment Is this a pain reassessment? Yes Sleep Is patient sleeping during reassessment? No Presence of Pain Presence of Pain Yes Pain Scale Used Pain Scale Used Numeric Location Left, Right or Bilateral Left Upper or Lower Lower Pain Location Body Site Abdomen Description Description Intermittent Intensity of Pain at present 4 Acceptable Level of Pain 4 Pain Behavior Moaning Aggravating Factors Contant Alleviating Factors/Management Medication Techniques Alleviating Factors Medication Ondansetron HCl (Zofran Inj) 4 mg IVP STAT STA Stop: 02/17/18 00:19 Last Admin: 02/17/18 01:11 Dose: 4 mg IVP Administration Document 02/17/18 01:11 OCS (Rec: 02/17/18 01:11 OCS [id number]) Charges for Administration # of IVP Administrations 1 - PA / STATEMENT REQUEST CLERK / Resident Statement / has reviewed & agrees with the documentation as recorded. / has examined the patient and agrees with the treatment plan. <Woo Olson - Last Filed: 02/17/18 04:53> Disposition/Present on Arrival <Woo Olson - Last Filed: 02/17/18 04:53> - Present on Arrival Any Indicators Present on Arrival: No History of DVT/PE: No History of Uncontrolled Diabetes: No Urinary Catheter: No History Surgical Site Infection Following: None - Disposition Have Diagnosis and Disposition been Completed?: Yes Disposition Time: 02:59 <Joann Marquez - Last Filed: 02/17/18 18:40> - Disposition Diagnosis: Intractable abdominal pain, Renal mass Disposition: HOSPITALIZED Patient Problems: Current Active Problems Problem Status Onset Intractable abdominal pain Acute Renal mass Acute Condition: STABLE
[2018-02-17] MEDS ORDERED: Famotidine 20mg/50ml 20 MG/50 ML BAG IVPB ONE (00:30)
[2018-02-17 01:22] LABS: BASO # 0.02 K/mm3 (0.0-2.0); BASO % 0.3 % (0.0-3.0); EOS # 0.3 (0.0-0.7); EOS % 3.2 % (1.5-5.0); GRAN # 5.86 (1.4-6.5); GRAN % 73.8 % (50.0-68.0); HEMOGLOBIN 10.1 g/dL (12.0-16.0); LYMPH # 1.2 (1.2-3.4); LYMPH % 14.9 % (22.0-35.0); MEAN CELL VOLUME 82.1 fl (80.0-105.0); MEAN CORPUSCULAR HEMOGLOBIN 26.6 pg (25.0-35.0); MEAN CORPUSCULAR HGB CONC 32.5 g/dl (31.0-37.0); MEAN PLATELET VOLUME 9.2 fl (7.0-11.0); MONO # 0.6 (0.1-0.6); MONO % 7.8 % (1.0-6.0); RBC 3.79 10^6/uL (3.5-6.1); RED CELL DISTRIBUTION WIDTH 16.5 % (11.5-14.5); WHITE BLOOD COUNT 7.9 10^3/ul (4.5-11.0)
[2018-02-17 01:33] LABS: INR 2.12 (0.93-1.08); PROTHROMBIN TIME 24.6 SECONDS (9.4-12.5)
[2018-02-17 01:41] LABS: ALBUMIN 4.5 g/dL (3.0-4.8); ALT/SGPT 34 U/L (7-56); AMYLASE 68 U/L (35-125); AST/SGOT 33 U/L (14-36); BLOOD UREA NITROGEN 22 mg/dL (7-21); CALCIUM 9.2 mg/dL (8.4-10.5); GFR AFRICAN-AMERICAN 52; GFR NON-AFRICAN AMERICAN 43; LIPASE 93 U/L (23-300)
[2018-02-17] MEDS ORDERED: Sodium Chloride 0.9% 500 ML IV STA (01:50)
[2018-02-17 01:53] LABS: TROPONIN I < 0.01 ng/mL
[2018-02-17] MEDS ORDERED: Iohexol 350 MG/100 ML VIAL ONE (01:55)
[2018-02-17] MEDS ORDERED: Morphine 4 mg/ml ISec IVP PRN ×2 (03:11→11:50)
[2018-02-17] MEDS: Morphine 4 mg/ml ISec IVP STA ×2 (04:22→06:36)
[2018-02-17] MEDS: Sodium Chloride 0.9% 1,000 ML IV SCH ×3 (04:22→22:06)
[2018-02-17 04:36] LABS: PH,URINE 6.5 (4.7-8.0); URINE BILIRUBIN NEGATIVE (NEGATIVE); URINE BLOOD NEGATIVE (NEGATIVE); URINE GLUCOSE (UA) NEGATIVE (NEGATIVE); URINE LEUKOCYTE ESTERASE TRACE Leu/uL (NEGATIVE); URINE PROTEIN NEGATIVE mg/dL (<30 mg/dL); URINE UROBILINOGEN 0.2 E.U./dL (<1 E.U./dL)
[2018-02-17 04:37] LABS: URINE APPEARANCE CLEAR (CLEAR); URINE COLOR YELLOW (YELLOW)
--- NOTE | 2018-02-17 04:38 | CT ---
EXAM: CT Abdomen and Pelvis With Intravenous Contrast EXAM DATE/TIME: 02/17/2018 12:19 AM CLINICAL HISTORY: 87 years old, female; Pain; Abdominal pain; Prior surgery; Surgery type: Pacemaker; Additional info: Abdom. Pain TECHNIQUE: Axial computed tomography images of the abdomen and pelvis with intravenous contrast. All CT scans at this facility use one or more dose reduction techniques, viz.: automated exposure control; ma/kV adjustment per patient size (including targeted exams where dose is matched to indication; i.e. head); or iterative reconstruction technique. Coronal and sagittal reformatted images were created and reviewed. CONTRAST: 96 mL of omni 350 administered intravenously. COMPARISON: None is available currently. FINDINGS: LIMITATIONS: Mild streak/motion artifact. Streak artifact from metallic hardware in the right hip. LUNG BASES: No significant abnormality seen. HEART: Heart appears moderately enlarged. Prosthetic cardiac valve is in place. Cardiac pacing device is in place. MEDIASTINUM: Small hiatal hernia. ABDOMEN: LIVER: Fatty infiltration of the liver. GALLBLADDER AND BILE DUCTS: No CT evidence of acute cholecystitis. No evidence of significant biliary ductal dilatation. PANCREAS: No CT evidence of acute pancreatitis. SPLEEN: No acute abnormality of the spleen identified. ADRENALS: No acute abnormality of the adrenal glands identified. KIDNEYS AND URETERS: Large 6.3 x 5.8 x 4.5 cm heterogeneously enhancing partially solid left renal mass, highly suspicious for neoplasm. This has lobulated, relatively well-defined margins. Mild right hydroureteronephrosis, with no causative obstructing stones seen. Most likely, this is secondary to reflux of urine from the dilated bladder. No evidence of significant left hydroureteronephrosis. STOMACH AND BOWEL: Colonic diverticulosis, with no evidence of acute diverticulitis. Otherwise, no significant abnormality of the bowel is identified. No acute abnormality of the stomach or duodenum identified. No evidence of small bowel obstruction. PELVIS: APPENDIX: Appendix is seen, and is within normal limits in appearance. BLADDER: Bladder is moderately dilated. REPRODUCTIVE: Uterus is surgically absent. No evidence of large adnexal masses. ABDOMEN and PELVIS: INTRAPERITONEAL SPACE: No evidence of free intraperitoneal air or fluid. BONES/JOINTS: Metallic hardware in the right hip. 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 SOFT TISSUES: Left inguinal hernia, containing part of the sigmoid colon. No evidence of associated bowel obstruction. No CT findings to suggest hernia incarceration, although clinical exam is more sensitive for detection of hernia incarceration. VASCULATURE: No evidence of abdominal aortic aneurysm. No evidence of periaortic hemorrhage. LYMPH NODES: No evidence of diffuse lymphadenopathy. IMPRESSION: - LARGE 6.3 CM HETEROGENEOUSLY ENHANCING LEFT RENAL MASS, HIGHLY SUSPICIOUS FOR NEOPLASM. A RENAL CELL CARCINOMA COULD HAVE THIS APPEARANCE. FURTHER WORKUP IS RECOMMENDED. - No evidence of a significant acute process. - Left inguinal hernia, containing part of the sigmoid colon. No associated bowel obstruction. - See above for remaining findings.
[2018-02-17 05:07] LABS: URINE BACTERIA MANY (NEG); URINE EPITHELIAL CELLS 0 - 2 /hpf (0-5); URINE RBC 0 - 2 /hpf (0-2)
[2018-02-17 05:48] VITALS: RESP 18
--- NOTE | 2018-02-17 09:04 | RAD ---
HISTORY: admission COMPARISON: 12/10/2016 FINDINGS: LUNGS: No active pulmonary disease. PLEURA: No significant pleural effusion identified, no pneumothorax apparent. CARDIOVASCULAR: Moderate cardiomegaly OSSEOUS STRUCTURES: Sternal wires VISUALIZED UPPER ABDOMEN: Normal. OTHER FINDINGS: Single lead pacer IMPRESSION: No active disease.
[2018-02-17] MEDS: Potassium Chloride 20 mEq ER Tab PO SCH (11:45)
--- NOTE | 2018-02-17 13:53 | CARD ---
APPROVED REPORT EKG Measurement Heart [id number] <Conclusion> Beck Fulton with V. Pacing
[2018-02-17 15:31] VITALS: O2SAT 97
--- NOTE | 2018-02-17 22:52 | HP ---
HISTORY OF PRESENT ILLNESS: The patient is an 87-year-old who has not been feeling well for last few days, has generalized weakness, developed abdominal pain. No nausea or vomiting. She was recently told that she has a mass in the abdomen. She does not really know, had appointment with Dr. Bustos, but she was more uncomfortable, so she decided to come to emergency room to be checked. PAST MEDICAL HISTORY: She has significant past medical history for; 1. Hypertension. 2. Coronary artery disease. 3. Status post pacemaker placement. 4. History of aortic valve replacement. 5. Hyperlipidemia. 6. Hypothyroidism. 7. Generalized osteoarthritis. 8. Status post aortic valve replacement. 9. Diabetic cardiomyopathy. ALLERGIES: SHE IS ALLERGIC TO ASPIRIN AND PENICILLIN. MEDICATIONS AT HOME: She is on losartan 25 daily, Nexium 40 mg daily, Aricept 5 mg daily, Remeron 15 mg at bedtime, simvastatin 10 mg daily, potassium 20 mEq daily, metoprolol 25 twice a day, Lasix 40 mg twice a day, Coumadin 6 mg daily, Lamictal 100 mg twice a day. SOCIAL HISTORY: Denies smoking, drinking, or alcohol use. PHYSICAL EXAMINATION: GENERAL: She is awake, alert, oriented, forgetful. VITAL SIGNS: She is afebrile, pulse 61, respirations 18, blood pressure 140/70. LUNGS: Bilateral good airflow. No rhonchi or crackle. HEART: S1, S2 audible. ABDOMEN: Soft, nontender. No rebound. No guarding. NEUROLOGICAL: Patient is awake, alert, oriented, able to communicate. LABORATORY EXAM: WBC 7.9, hemoglobin 10, hematocrit 31, platelets 350. PT 24.6, INR is 2.12. Chemistry: Sodium 146, potassium 3.9, chloride 106, CO2 of 24. BUN 22, creatinine 1.2. Blood sugar of 117. LFTs are within normal limit. Alk phos 217. Total protein 8.8. Urine shows trace leukocyte. CT scan of the abdomen and pelvis was done that shows large left heterogenous renal mass, highly suspicious for neoplasm, renal cell carcinoma could have , no evidence of significant other acute process, left inguinal hernia containing part of the sigmoid colon. No bowel obstruction. ASSESSMENT: 1. Left kidney renal mass. 2. Status post pacemaker. 3. Aortic valve replacement. 4. Cardiomyopathy. 5. History of hypertension. 6. Hypothyroidism. 7. Hyperlipidemia. PLAN: We will restart patient on her usual medications. Awaiting Dr. Bustos's evaluation. After patient is evaluated by urologist, that will be decided if she is a candidate for surgery, also request for cardiology evaluation by Dr. Puentes. Charito Dale MD
[2018-02-18] MEDS: Potassium Chloride 20 mEq ER Tab PO SCH (10:05)
[2018-02-18 10:46] VITALS: BP 135/67; PULSE 62; TEMP 98
--- NOTE | 2018-02-19 02:20 | DS ---
HISTORY OF PRESENT ILLNESS: The patient is 87-year-old who was admitted with left flank pain. The patient was recently diagnosed with left renal mass and because of the patient's multiple comorbidities, the patient was evaluated by Dr. Bustos who referred her to urologist in [facility]. The patient was seen and examined today, doing okay. No more pain. Anxious to go home. No hematuria. No nausea or vomiting. No diarrhea. Eating and tolerating. PHYSICAL EXAMINATION: VITAL SIGNS: She is afebrile, pulse 62, respiration 18, blood pressure 135/67. LUNGS: Bilateral good airflow. No rhonchi or crackle. HEART: S1 and S2 audible. ABDOMEN: Soft, nontender. No rebound, no guarding. NEUROLOGIC: The patient is awake, alert, oriented, communicative, ambulatory. LABORATORY DATA: Blood sugar is 80. ASSESSMENT: 1. Left renal mass. 2. Status post aortic valve replacement. 3. Status post intractable nausea that has subsided. 4. History of hypertension. 5. Hypothyroidism. 6. Hyperlipidemia. 7. Status post pacemaker placement. PLAN: The patient is being discharged home today. She will follow up with Dr. Bustos. She has appointment on Tuesday and further discussion will be made. Had discussion with daughter who is reluctant to have procedure done, but mother is awake, alert, oriented and is able to make decision. She will follow Dr. Bustos and further management will be done as outpatient. Charito Dale MD
--- NOTE | 2018-02-20 08:11 | CON ---
DATE: 02/17/2018 GENITOURINARY CONSULTATION CHIEF COMPLAINT Abdominal pain. HISTORY OF PRESENT ILLNESS: This is an 87-year-old female who is known to me. The patient has a history of a renal mass. She has been seen in my office few times. A nephrectomy was recommended; however, patient has worsening dementia as well as other significant medical issues. She is 87 years old and her daughter who had come with her wanted to discuss with her, rest of her family, and peers. They had decided not to pursue a surgical option as she appears to be a poor surgical candidate. Patient has not been seen in a few months. She missed recent follow-up appointments in the office and presented now complaining of abdominal pain. Patient reports the pain originally was in the left lower quadrant. Now, she is complaining more of right lower abdominal pain. She reports she has been voiding well, no dysuria, mild urinary frequency, no urgency or gross hematuria. She does report constipation and some nausea. Denies fever or chills. Patient has a history of dementia and is a poor historian, but she is awake, alert and answering questions appropriately right now. PAST MEDICAL HISTORY: Significant for hypertension, coronary artery disease, congestive heart failure, status post permanent pacemaker placement, status post aortic valve replacement, history of large left renal mass. MEDICATIONS: Include Aricept, Cozaar, K-Dur, Lamictal, Lasix, Lipitor, Lopressor, morphine and Zofran. ALLERGIES: ALLERGIC TO ASPIRIN AND PENICILLINS. FAMILY HISTORY: Noncontributory. SOCIAL HISTORY: Denies current smoking or EtOH use. REVIEW OF SYSTEMS: These are positives as per the HPI. Others include difficulty ambulating and memory loss. Other systems are negative. PHYSICAL EXAMINATION: GENERAL: Patient is awake and alert. She does have a history of dementia, although she is answering questions appropriately. VITAL SIGNS: She is afebrile. Temperature 97.7, pulse of 64, BP 123/67, respirations 18. NECK: Supple. There is no adenopathy. CHEST: Exam of the chest reveals a normal inspiratory effort. CARDIAC: Exam shows positive S1, S2. There is no peripheral edema noted. ABDOMEN: The abdomen is soft. There is some mild diffuse tenderness, mainly right lower quadrant at this time. There is some mild suprapubic tenderness. Her abdomen is slightly distended and tympanitic. There is no costovertebral angle tenderness. There is no rebound or guarding noted. EXTREMITIES: There is no cyanosis or edema. LABORATORY DATA: On laboratory exam, WBC count 7.9, creatinine 1.2 with a GFR of 43. Urinalysis showed 1 to 3 WBCs, 0 to 2 RBC. On radiologic exam, patient had a CT scan of the abdomen and pelvis, which showed there is a large 6.3 cm heterogeneously enhancing left renal mass highly suspicious for neoplasm, renal cell carcinoma could have this appearance. There is noted to be a left inguinal hernia containing part of the sigmoid colon with no associated bowel obstruction. There is diverticulosis with no evidence of diverticulitis. IMPRESSION AND PLAN: This is an 87-year-old female with dementia and other significant medical issues, who has a large suspicious left renal mass. In the past, I have recommended a left nephrectomy for this patient as this is likely a renal cell carcinoma. Her chest x-ray shows no evidence of metastatic disease at this time as does the CAT scan. As for her acute abdominal pain, I would recommend a General Surgery evaluation, possibly from apparent constipation. Patient's abdomen is somewhat distended, possibly from the colon herniation. Regarding the renal mass, patient's family needs to decide on a course of action. I do not feel she is a good operative candidate, but this is a large mass. Clearly, this is not the cause of her abdominal pain and once this has resolved, patient can be discharged home with outpatient followup. I would likely refer her to one of my partners for a robotic nephrectomy as I feel that would be safer course of action for her, then a large open resection given her other significant medical issues. If the family does not want to pursue a surgical option, I would recommend an Oncology consultation. Possibly, we could biopsy the mass and start her on outpatient chemotherapy, which should slow the progression of this mass depending on the cell type. Thank you for allowing me to participate in the care of this patient. We will follow her with you. Michael Bustos MD
== END 2018-02-18 14:28 | disposition home or self-care (01) | DRG 699 ==
LOC: ED 23:46 → ERH 02-17 02:52 → 5RSO 02-17 04:35 → OBSVTOIN 02-17 14:37
PROVIDERS: ADMIT Internal Medicine; ATTEND Internal Medicine
DX: N28.89 Other specified disorders of kidney and ureter (principal); I42.9 Cardiomyopathy, unspecified; E03.9 Hypothyroidism, unspecified; E78.5 Hyperlipidemia, unspecified; I50.9 Heart failure, unspecified; I11.0 Hypertensive heart disease with heart failure; I25.10 Atherosclerotic heart disease of native coronary artery without angina pectoris; M15.9 Polyosteoarthritis, unspecified; F03.90 Unspecified dementia, unspecified severity, without behavioral disturbance, psychotic disturbance, mood disturbance, and anxiety; K59.00 Constipation, unspecified; E11.9 Type 2 diabetes mellitus without complications; R11.0 Nausea; Z79.01 Long term (current) use of anticoagulants; Z95.2 Presence of prosthetic heart valve; Z95.0 Presence of cardiac pacemaker; Z88.0 Allergy status to penicillin; Z88.6 Allergy status to analgesic agent

== ENCOUNTER 2018-05-05 14:00 | Inpatient (IN) | payer MEDICARE ==
[2018-05-05 14:19] VITALS: BMI 23.5
--- NOTE | 2018-05-05 14:42 | ED PDOC ---
Arrival/HPI - General Time Seen by Provider: 05/05/18 14:26 Historian: Patient, Family - History of Present Illness Narrative History of Present Illness (Text): 05/05/18 14:40 87 year old female, whose PMH includes pacemaker, CHF, hypertension, diabetes, and hyporthyroidism, who presents to the emergency department complaining of shortness of breath since last night. Patient reports her symptom has become worse and was sent here by Dr. Villareal from clinic. patient denies any chest pain, headache, nausea, vomiting, diarrhea , fever, cough, or other complaints. Time/Duration: 24 hours Symptom Onset: Sudden Symptom Course: Unchanged Context: Home Past Medical History - Provider Review Nursing Documentation Reviewed: Yes - Infectious Disease Hx of Infectious Diseases: None - Tetanus Immunization Tetanus Immunization: Unknown - Cardiac Hx Cardiac Disorders: Yes Hx Congestive Heart Failure: Yes Hx Hypertension: Yes Hx Pacemaker: Yes - Pulmonary Hx Respiratory Disorders: No - Neurological Hx Neurological Disorder: Yes Hx Seizures: Yes - HEENT Hx HEENT Disorder: No - Renal Hx Renal Disorder: No - Endocrine/Metabolic Hx Endocrine Disorders: Yes Hx Diabetes Mellitus Type 2: Yes Hx Hypothyroidism: Yes - Hematological/Oncological Hx Blood Disorders: No - Integumentary Hx Dermatological Disorder: No - Musculoskeletal/Rheumatological Hx Falls: No - Gastrointestinal Hx Gastrointestinal Disorders: Yes Other/Comment: Hx Gastric Bypass - Genitourinary/Gynecological Hx Genitourinary Disorders: No - Psychiatric Hx Psychophysiologic Disorder: No Hx Depression: No Hx Emotional Abuse: No Hx Physical Abuse: No Hx Substance Use: No - Surgical History Hx Cardiac Catheterization: Yes Hx Gastric Bypass Surgery: Yes Hx Open Heart Surgery: Yes Hx Orthopedic Surgery: Yes (right hip fx 2 pins) Other/Comment: valve replacement - Anesthesia Hx Anesthesia: Yes Hx Anesthesia Reactions: No Hx Malignant Hyperthermia: No - Suicidal Assessment Feels Threatened In Home Enviroment: No Family/Social History - Physician Review Nursing Documentation Reviewed: Yes Family/Social History: Unknown Family HX Smoking Status: Former Smoker Hx Alcohol Use: No Hx Substance Use: No Hx Substance Use Treatment: No Allergies/Home Meds Allergies/Adverse Reactions: Allergies aspirin Allergy (Intermediate, Verified 05/05/18 16:15) PAIN ABDOMINAL DISCOMFORT Penicillins Allergy (Mild, Verified 05/05/18 16:15) ITCHING FISH Allergy (Verified 05/05/18 16:15) ITCHING Home Medications: Home Meds Medication Instructions Recorded Confirmed Warfarin [Coumadin] 6 mg PO DAILY 03/02/12 05/05/18 Donepezil [Aricept] 5 mg PO DAILY 10/18/13 05/05/18 Furosemide [Lasix] 40 mg PO BID 02/10/17 05/05/18 Mirtazapine 15 mg PO DAILY 02/10/17 05/05/18 Potassium Chloride [K-Dur 20 mEq 20 meq PO DAILY 02/10/17 05/05/18 ER Tab] Simvastatin 10 mg PO DAILY 02/10/17 05/05/18 lamoTRIgine [Lamictal] 100 mg PO BID 02/10/17 05/05/18 Esomeprazole Magnesium [Nexium] 40 mg PO BID 02/17/18 05/05/18 Losartan Potassium 25 mg PO DAILY 02/17/18 05/05/18 Metoprolol Tartrate 25 mg PO BID 02/17/18 05/05/18 Review of Systems - Physician Review All systems were reviewed & negative as marked: Yes - Review of Systems Respiratory: SOB. absent: Cough Cardiovascular: absent: Chest Pain Gastrointestinal: absent: Vomiting Physical Exam Vital Signs Reviewed: Yes Vital Signs Temp Pulse Resp BP Pulse Ox 05/05/18 16:00 98 F 72 18 153/67 H 99 05/05/18 14:00 98 F 64 18 138/76 97 Temperature: Afebrile Blood Pressure: Normal Pulse: Regular Respiratory Rate: Normal Appearance: Positive for: Well-Appearing, Non-Toxic, Comfortable Pain Distress: None Mental Status: Positive for: Alert and Oriented X 3 - Systems Exam Head: Present: Atraumatic, Normocephalic Pupils: Present: PERRL Extroacular Muscles: Present: EOMI Conjunctiva: Present: Normal Respiratory/Chest: Present: Clear to Auscultation, Good Air Exchange, Other ( pacemaker on chest). No: Respiratory Distress, Accessory Muscle Use, Wheezes, Decreased Breath Sounds, Rales, Retracting, Rhonchi Cardiovascular: Present: Regular Rate and Rhythm, Normal S1, S2. No: Murmurs Abdomen: Present: Normal Bowel Sounds. No: Tenderness, Distention, Peritoneal Signs, Rebound, Guarding Neurological: Present: GCS=15, CN II-XII Intact, Speech Normal Skin: Present: Warm, Dry, Normal Color. No: Rashes Psychiatric: Present: Alert, Oriented x 3, Normal Insight, Normal Concentration Medical Decision Making ED Course and Treatment: 05/05/18 Impression: 87 year old female with unremarkable physical exam complaining of shortness of breath since last night. Plan: -- EKG -- Chest X-ray -- Labs -- Reassess and disposition Progress Notes: Dr. Walter called the ED to give some information- patient has history of L renal mass and will undergo biopsy in the OR next week. He had been seeing the patient for possible chemo for the renal malignancy, but is waiting for biopsy results. Patient is on coumadin for prosthetic valves and will need to be switched to heparin prior to going to the OR. Hgb was low (8.6) during the patient's last visit with him. 05/05/18 EKG: Ordered, reviewed, and independently interpreted the EKG. Rate : 71 BPM Rhythm : ventricular pacing Interpretation : ventricular pacing. Left [place] deviation. No concurrent ST changes. Chest X-ray Dictator : Remi Mata MD Report Date : 05/05/2018 15:15:25 IMPRESSION: No active disease. On re-evaluation patient states she is not feeling short of breath. Results discussed, will admit for further evaluation. Case discussed with Dr. Gaspar who agrees with plan for admission. Case discussed with Dr. Dale who accepts admission. Would like Dr. Walter on consult and would also like cardiology consult- placed to Dr. Puentes. - Lab Interpretations Lab Results: 05/05/18 15:24 05/05/18 15:24 Lab Results 05/05/18 15:24: NT-Pro-B Natriuret Pep 2770 H 05/05/18 15:24: Sodium 144, Potassium 4.3, Chloride 105, Carbon Dioxide 26, Anion Gap 17, BUN 23 H, Creatinine 1.5 H, Est GFR ( Amer) 40, Est GFR ( Non-Af Amer) 33, Random Glucose 113 H, Calcium 8.8, Magnesium 2.4 H, Lactate Dehydrogenase 741 H, Total Creatine Kinase 25 L, Troponin I < 0.01 05/05/18 15:24: WBC 7.0, RBC 3.37 L, Hgb 8.6 L, Hct 27.3 L, MCV 81.0, MCH 25.5, MCHC 31.5, RDW 17.5 H, Plt Count 318, MPV 8.9, Gran % 73.3 H, Lymph % (Auto) 14.6 L, Spencer % (Auto) 7.6 H, Eos % (Auto) 4.2, Baso % (Auto) 0.3, Gran # 5.11, Lymph # (Auto) 1.0 L, Spencer # (Auto) 0.5, Eos # (Auto) 0.3, Baso # (Auto) 0.02 05/05/18 15:24: PT 14.2 H, INR 1.24 H, APTT 31.7 I have reviewed the lab results: Yes - RAD Interpretation Radiology Orders: 05/05/18 14:43 CHEST PORTABLE [RAD] Stat Lockstitch Lining Setter: Radiologist - EKG Interpretation Interpreted by ED Physician: Yes Type: 12 lead EKG - Scribe Statement The provider has reviewed the documentation as recorded by the Zairaibe Jazmin De Luna Provider Scribe Attestation: All medical record entries made by the Zairaibyang were at my direction and personally dictated by me. I have reviewed the chart and agree that the record accurately reflects my personal performance of the history, physical exam, medical decision making, and the department course for this patient. I have also personally directed, reviewed, and agree with the discharge instructions and disposition. Disposition/Present on Arrival - Present on Arrival Any Indicators Present on Arrival: No History of DVT/PE: No History of Uncontrolled Diabetes: No Urinary Catheter: No History Surgical Site Infection Following: None - Disposition Have Diagnosis and Disposition been Completed?: Yes Diagnosis: CHF (congestive heart failure), Dyspnea Disposition: HOSPITALIZED Disposition Time: 16:42 Patient Problems: Current Active Problems Problem Status Onset CHF (congestive heart failure) Acute Dyspnea Acute Condition: STABLE
--- NOTE | 2018-05-05 15:17 | RAD ---
Date of service: 05/05/2018 HISTORY: dyspnea COMPARISON: 02/17/2018 FINDINGS: LUNGS: No active pulmonary disease. PLEURA: No significant pleural effusion identified, no pneumothorax apparent. CARDIOVASCULAR: Moderate cardiomegaly. OSSEOUS STRUCTURES: Sternal wires VISUALIZED UPPER ABDOMEN: Normal. OTHER FINDINGS: Pacemaker IMPRESSION: No active disease.
[2018-05-05 15:33] LABS: BASO # 0.02 K/mm3 (0.0-2.0); BASO % 0.3 % (0.0-3.0); EOS # 0.3 (0.0-0.7); EOS % 4.2 % (1.5-5.0); GRAN # 5.11 (1.4-6.5); GRAN % 73.3 % (50.0-68.0); HEMOGLOBIN 8.6 g/dL (12.0-16.0); LYMPH % 14.6 % (22.0-35.0); MEAN CORPUSCULAR HEMOGLOBIN 25.5 pg (25.0-35.0); MEAN CORPUSCULAR HGB CONC 31.5 g/dl (31.0-37.0); MEAN PLATELET VOLUME 8.9 fl (7.0-11.0); MONO # 0.5 (0.1-0.6); MONO % 7.6 % (1.0-6.0); RBC 3.37 10^6/uL (3.5-6.1); RED CELL DISTRIBUTION WIDTH 17.5 % (11.5-14.5)
[2018-05-05 15:43] LABS: INR 1.24 (0.93-1.08); PARTIAL THROMBOPLASTIN TIME 31.7 Seconds (25.1-36.5); PROTHROMBIN TIME 14.2 SECONDS (9.4-12.5)
[2018-05-05 15:44] LABS: BLOOD UREA NITROGEN 23 mg/dL (7-21); CALCIUM 8.8 mg/dL (8.4-10.5); GFR AFRICAN-AMERICAN 40; GFR NON-AFRICAN AMERICAN 33
[2018-05-05 15:54] LABS: TROPONIN I < 0.01 ng/mL
--- NOTE | 2018-05-05 17:28 | CARD ---
APPROVED REPORT Date of service: 05/05/2018 EKG Measurement Heart [id number] <Conclusion> Demand pacemaker, interpretation is based on intrinsic rhythm Atrial fibrillation with premature ventricular or aberrantly conducted complexes Left axis deviation Left bundle branch block Abnormal ECG
[2018-05-05] MEDS ORDERED: Enoxaparin 60 mg Syringe SC SCH (19:15)
[2018-05-05] MEDS ORDERED: Heparin25000 units/250ml 1/2NS 25,000 UNITS/250 ML BAG IV PRN (20:37)
[2018-05-05] MEDS: Heparin25000 units/250ml 1/2NS 25,000 UNITS/250 ML BAG IV SCH (21:45)
--- NOTE | 2018-05-06 05:13 | CON ---
DATE: 05/05/2018 This is Terra Knight's hospital visit in the emergency room. She will be going to the telemetry floor. CHIEF COMPLAINT: Shortness of breath. HISTORY OF PRESENT ILLNESS: Patient is an 87-year-old female, recently diagnosed with a renal mass, for which she was evaluated at Dr. Walter's office today. PET/CT scan done on 04/11/2018 with the impression that of heterogeneously mass arising from the inferior pole of the left kidney, likely representing primary malignancy. No evidence of local or distal metastatic disease. The patient is now admitted by the emergency room for increasing shortness of breath with the patient concerned that the mass has a malignancy that may be untreatable. She is at present resting comfortably after treatment in the emergency room, and was informed of the findings of the PET/CT scan, for which she was relieved, and was also informed of the recommendations for a consult with Dr. Byron Lui for a biopsy of the mass with eventual treatment with oral antineoplastic agents as per Dr. Walter's recommendation, if possible, as the patient's advanced age and other comorbid conditions may preclude a surgical recommendation. Patient is also known to have a prosthetic valve, status post aortic valve replacement with the pacemaker, also complicating the possibility of a good outcome surgically. With this, patient is otherwise resting comfortably and we will continue with present medical regimen. We will also transition from her present Coumadin for anticoagulation to heparin, with no bolus IV with anticipation of a biopsy to be done in the near future. ALLERGIES: ASPIRIN, PENICILLIN AND FISH. MEDICATIONS: At this point include losartan, Nexium, Aricept, Remeron, simvastatin, potassium, metoprolol, Lasix, Coumadin, Lamictal. FAMILY HISTORY AND SOCIAL HISTORY: Nonsmoker, non-ethanolic, otherwise noncontributory. REVIEW OF SYSTEMS: Twelve-point review of systems was done, which was negative to questioning except for items mentioned in history of present illness. PAST MEDICAL HISTORY: Significant for status post aortic valve and mitral valve surgery with one procedure 10 years ago, the second procedure 7 years prior, history of pinning of the right hip, recently treated at [facility] for urinary tract infection, ASCVD with recent findings of renal mass without involvement of the renal vein. Also dementia, diabetes - diet controlled, hypertension, status post pacer, hyperlipidemia, hypothyroidism, osteoarthritis, cardiomyopathy, left inguinal hernia. PHYSICAL EXAMINATION: GENERAL: She appears feeble, resting comfortably. VITAL SIGNS: Temperature 98.1, pulse 69, respirations 18, blood pressure 127/71, pulse ox 98%. HEENT: Unremarkable. Tongue is dry. NECK: Supple. HEART: Regular rate. Occasional ectopic beat, 1/6 systolic ejection murmur. ABDOMEN: Soft, nontender. EXTREMITIES: No edema. SKIN: Warm and dry. NEUROLOGIC: Awake and alert. LABORATORY DATA: The patient's labs were done; white blood cell count 7, hemoglobin 8.6, hematocrit 27.3, platelet count of 318,000. INR of 1.24, questionably off Coumadin. PTT of 31.7 with a chem metabolic panel showing a BUN of 23, creatinine 1.5, magnesium 2.4, LDH is 741, CK of 25. Troponin less than 0.01 with a B-natriuretic peptide of 2770. IMAGING DATA: Patient had a chest x-ray done earlier today. It was read as pacemaker, no active disease. Patient's EKG was done earlier today. It was read as demand pacer, interpretation based on atrial fibrillation with premature ventricular aberrantly conducted complex left axis deviation, left bundle branch block, and abnormal EKG. The patient's most recent scan include the PET/CT scan done on 04/11/2018 at [facility] with interpretation again reported, she has heterogeneously mass arising from the inferior pole of the left kidney, likely representing primary malignancy, no evidence of local or distal metastatic disease. ASSESSMENT: For this patient is that a probable renal cell carcinoma, operable technically, but given the patient's high risk status, needs to weigh pros versus cons, status post aortic valve replacement, status post mitral valve replacement, atrial fibrillation on anticoagulation with Coumadin, hypothyroidism, hypertension, atherosclerotic cardiovascular disease, status post pacemaker, severe degenerative joint disease, cardiomyopathy, hyperlipidemia, dementia, anemia - to be evaluated with labs to be drawn in the morning. PLAN: After conversation with Dr. Walter who spoke with Dr. Dale regarding her care, recommendations are to ask for consult with Dr. Byron Lui for tissue diagnosis biopsy in the near future. We will change to heparin, no bolus, IV, monitoring the PTT with discontinuation of her Lovenox and Coumadin as per Dr. Walter's recommendation. We will also recommend to continue her present medical regimen with her diet to be continued with labs to be checked again in the a.m. We will monitor the PTT as per protocol with the patient known to have seen Dr. Sexton for a second opinion, also evaluation with Dr. Michael Bustos of Urology regarding possible surgical procedure if patient qualifies. The patient is to continue treatment as per Dr. Puentes, her court commissioner, for her admitting diagnosis of CHF. We will also ask for a stool for occult blood to be done with percent iron saturation testing to determine whether she is iron deficient, causing her anemia, versus GI bleed. The prognosis for this patient is guarded. This is a complex patient with a comprehensive medically necessary and appropriate visit carried out in excess of 70 minutes in [id number] time with evaluation of her previous medical records with documentation of her clinical findings as above with reports obtained from other hospitals. We will monitor clinically and with labs. Everett York MD
--- NOTE | 2018-05-06 06:58 | HP ---
HISTORY OF PRESENT ILLNESS: The patient is an 87 years old female, who was brought in by family because of increasing weakness, getting shortness of breath, difficulty walking, difficulty getting out of bed. Shortness of breath got worse since last night. So, she went to see the PMD who noticed her having shortness of breath, so sent to emergency room for further evaluation. Denies any chest pain. Complained of feeling weak. No history of nausea or vomiting. No diarrhea. PAST MEDICAL HISTORY: Significant for: 1. Pacemaker placement. 2. Congestive heart failure. 3. Hypertension. 4. Aeh-qatfogh-yolgxshmv diabetes. 5. Hypothyroidism. 6. Coronary artery disease. 7. Generalized osteoarthritis. 8. Status post aortic valve replacement. 9. Diabetic cardiomyopathy. ALLERGIES: SHE IS ALLERGIC TO PENICILLIN AND ASPIRIN. MEDICATIONS AT HOME: She is on losartan 25 daily, Nexium 40 mg daily, Aricept 5 mg daily, Remeron 15 mg at bedtime, simvastatin 10 mg daily, potassium 20 mEq daily, metoprolol 25 mg twice a day, Lasix 40 mg twice a day, Coumadin 6 mg daily, Lamictal 100 mg twice a day. SOCIAL HISTORY: Denies smoking, drinking or alcohol use. Patient recently was found to have large 6.3 cm heterogeneously enhancing left renal mass suspicious for malignancy, renal cell carcinoma. She is scheduled to have biopsy done on Tuesday. PHYSICAL EXAMINATION: GENERAL: She is awake, alert, oriented, communicative. VITAL SIGNS: She is afebrile, pulse 63, respirations 18, blood pressure 135/76. LUNGS: Bilateral fair airflow. No rhonchi or crackle. HEART: S1 and S2 audible. ABDOMEN: Soft and nontender. No rebound. No guarding. NEUROLOGIC: She is awake, alert, oriented, communicative. LABORATORY DATA: WBC 7, hemoglobin 8.6, hematocrit 27.3, platelets 318. PT 14.2, INR 1.24. Chemistry: Sodium 144, potassium 4.3, chloride 105, CO2 of 26, BUN 23, creatinine 1.5, blood sugar of 113. LDH is 741. Magnesium 2.4. BNP 2770. X-ray chest shows, no active disease. ASSESSMENT AND PLAN: 1. Congestive heart failure exacerbation. 2. Hypertension. 3. Coronary artery disease. 4. Status post aortic valve replacement. 5. Left renal mass. 6. Hypertension. 7. Hypothyroidism. 8. Status post pacemaker placement. PLAN: Patient will be admitted. Restart her medication. Start diuresis. Hold off Coumadin. Start her on Lovenox. Start her on IV diuretics. Follow up electrolytes in the a.m. Charito Dale MD
[2018-05-06 07:19] LABS: BASO # 0.04 K/mm3 (0.0-2.0); BASO % 0.5 % (0.0-3.0); EOS # 0.4 (0.0-0.7); EOS % 4.5 % (1.5-5.0); GRAN # 5.3 (1.4-6.5); GRAN % 66.8 % (50.0-68.0); LYMPH # 1.7 (1.2-3.4); LYMPH % 20.9 % (22.0-35.0); MEAN CELL VOLUME 80.3 fl (80.0-105.0); MEAN CORPUSCULAR HEMOGLOBIN 25.6 pg (25.0-35.0); MEAN CORPUSCULAR HGB CONC 31.9 g/dl (31.0-37.0); MEAN PLATELET VOLUME 9.1 fl (7.0-11.0); MONO # 0.6 (0.1-0.6); MONO % 7.3 % (1.0-6.0); RBC 3.51 10^6/uL (3.5-6.1); RED CELL DISTRIBUTION WIDTH 17.3 % (11.5-14.5); WHITE BLOOD COUNT 7.9 10^3/ul (4.5-11.0)
[2018-05-06 07:37] LABS: ALB/GLOB RATIO 0.9 (1.1-1.8); ALBUMIN 4.1 g/dL (3.0-4.8); CALCIUM 8.7 mg/dL (8.4-10.5)
[2018-05-06 09:14] LABS: IRON 43 ug/dL (45-180)
[2018-05-06 09:23] LABS: % IRON SATURATION 15 % (20-55); TOTAL IRON BINDING CAPACITY 290 ug/dL (265-497)
[2018-05-06] MEDS ORDERED: Non Formulary Medication (Simvastatin [Simvastatin] 10 MG) PO SCH (10:00)
[2018-05-06] MEDS: Potassium Chloride 20 mEq ER Tab PO SCH (10:52)
[2018-05-06 11:29] LABS: FERRITIN 39.2 ng/mL
--- NOTE | 2018-05-06 12:13 | CP.PCM.CON ---
History of Present Illness - History of Present Illness History of Present Illness: Awake, alert.denies chest pain, denies shortness of breath Reason for consultation:Cardiac evaluation for shortness of breath,history of hypertension, congestive heart failure,hypothyroidism, diabetes,PPM Brief history of present illness: An 87 year old female who came in to the ER due to shortness of breath and generalized weakness. She was sent by her PMD due to worsening shortness of breath and increasing weakness having a hard time getting out of bed. History of hypertension, congestive heart failure, hypothyroidism, diabetes,.PPM,former smoker,history of seizures, gastric bypass, right hip surgery,status post AVR/MVR, coronary artery disease. Seen and examined by me and Dr. De Paz Review of Systems - Review of Systems All systems: reviewed and no additional remarkable complaints except Review of Systems: from HPI Past Patient History - Infectious Disease Hx of Infectious Diseases: None - Tetanus Immunizations Tetanus Immunization: Unknown - Past Social History Smoking Status: Former Smoker - CARDIAC Hx Cardiac Disorders: Yes Hx Congestive Heart Failure: Yes Hx Hypertension: Yes Hx Pacemaker: Yes - PULMONARY Hx Respiratory Disorders: No - NEUROLOGICAL Hx Neurological Disorder: Yes Hx Seizures: Yes - HEENT Hx HEENT Problems: No - RENAL Hx Chronic Kidney Disease: No - ENDOCRINE/METABOLIC Hx Endocrine Disorders: Yes Hx Diabetes Mellitus Type 2: Yes Hx Hypothyroidism: Yes - HEMATOLOGICAL/ONCOLOGICAL Hx Blood Disorders: No - INTEGUMENTARY Hx Dermatological Problems: No - MUSCULOSKELETAL/RHEUMATOLOGICAL Hx Falls: No - GASTROINTESTINAL Hx Gastrointestinal Disorders: Yes Other/Comment: Hx Gastric Bypass - GENITOURINARY/GYNECOLOGICAL Hx Genitourinary Disorders: No - PSYCHIATRIC Hx Psychophysiologic Disorder: No Hx Depression: No Hx Emotional Abuse: No Hx Physical Abuse: No - SURGICAL HISTORY Hx Cardiac Catheterization: Yes Hx Gastric Bypass Surgery: Yes Hx Open Heart Surgery: Yes Hx Orthopedic Surgery: Yes (right hip fx 2 pins) Other/Comment: valve replacement - ANESTHESIA Hx Anesthesia: Yes Hx Anesthesia Reactions: No Hx Malignant Hyperthermia: No Meds Allergies/Adverse Reactions: Allergies Allergy/AdvReac Type Severity Reaction Status Date / Time aspirin Allergy Intermediate PAIN Verified 05/05/18 16:15 Penicillins Allergy Mild ITCHING Verified 05/05/18 16:15 FISH Allergy ITCHING Verified 05/05/18 16:15 - Medications Medications: Current Medications Acetaminophen (Tylenol 325mg Tab) 650 mg PO Q4 PRN PRN Reason: Fever >100.4 F Atorvastatin Calcium (Lipitor) 10 mg PO DIN [facility] Donepezil HCl (Aricept) 5 mg PO DAILY [facility] Famotidine (Pepcid) 20 mg PO 1000,2200 [facility] Last Admin: 05/06/18 10:51 Dose: 20 mg Furosemide (Lasix) 40 mg IVP DAILY [facility] Last Admin: 05/06/18 10:52 Dose: 40 mg Heparin Sodium/Sodium Chloride (Heparin 64665 Units/250ml 1/2 Normal Saline) 25 ,000 units in 250 mls @ 8.165 mls/hr IV .Q24H NAVYA; 12 UNITS/KG/HR PRN Reason: Protocol Last Titration: 05/05/18 22:00 Dose: 17.63 units/kg/hr, 12 mls/hr Lamotrigine (Lamictal) 100 mg PO BID [facility] PRN Reason: Protocol Last Admin: 05/06/18 10:51 Dose: 100 mg Losartan Potassium (Cozaar) 25 mg PO DAILY [facility] Last Admin: 05/06/18 10:52 Dose: 25 mg Metoprolol Tartrate (Lopressor) 25 mg PO BID [facility] Last Admin: 05/06/18 10:51 Dose: 25 mg Mirtazapine (Remeron) 15 mg PO DAILY [facility] Last Admin: 05/06/18 10:51 Dose: 15 mg Potassium Chloride (K-Dur 20 Meq Er Tab) 20 meq PO DAILY [facility] Last Admin: 05/06/18 10:52 Dose: 20 meq Physical Exam - Constitutional Appears: No Acute Distress - Eye Exam Eye Exam: Normal appearance - ENT Exam ENT Exam: Mucous Membranes Moist - Respiratory Exam Respiratory Exam: Decreased Breath Sounds, NORMAL BREATHING PATTERN - Cardiovascular Exam Cardiovascular Exam: REGULAR RHYTHM, +S1, +S2 Additional comments: telemetry NSR 60's PPM - GI/Abdominal Exam GI & Abdominal Exam: Normal Bowel Sounds, Soft - Neurological Exam Neurological exam: Alert, Oriented x3 - Psychiatric Exam Psychiatric exam: Normal Affect - Skin Skin Exam: Intact, Warm Results - Vital Signs Recent Vital Signs: Last Vital Signs Temp 98.9 F 05/06/18 06:00 Pulse 80 05/06/18 06:00 Resp 18 05/06/18 06:00 BP 130/70 05/06/18 10:52 Pulse Ox 96 05/06/18 06:00 - Labs Result Diagrams: 05/06/18 05:00 05/06/18 06:30 Labs: Laboratory Results - last 24 hr 05/05/18 05/06/18 05/06/18 18:46 05:00 06:30 WBC 7.9 RBC 3.51 Hgb 9.0 L Hct 28.2 L MCV 80.3 MCH 25.6 MCHC 31.9 RDW 17.3 H Plt Count 333 MPV 9.1 Gran % 66.8 Lymph % (Auto) 20.9 L Taliaferro % (Auto) 7.3 H Eos % (Auto) 4.5 Baso % (Auto) 0.5 Gran # 5.30 Lymph # (Auto) 1.7 Taliaferro # (Auto) 0.6 Eos # (Auto) 0.4 Baso # (Auto) 0.04 APTT Sodium 144 Potassium 4.4 Chloride 105 Carbon Dioxide 26 Anion Gap 17 BUN 21 Creatinine 1.5 H Est GFR ( Amer) 40 Est GFR (Non-Af Amer) 33 POC Glucose (mg/dL) 83 Random Glucose 93 Calcium 8.7 Iron TIBC % Saturation Ferritin 39.2 Total Bilirubin 0.5 AST 45 H D ALT 50 Alkaline Phosphatase 281 H D Total Protein 8.5 H Albumin 4.1 Globulin 4.5 Albumin/Globulin Ratio 0.9 L Carcinoembryonic Ag 05/06/18 05/06/18 05/06/18 06:30 06:30 06:30 WBC RBC Hgb Hct MCV MCH MCHC RDW Plt Count MPV Gran % Lymph % (Auto) Taliaferro % (Auto) Eos % (Auto) Baso % (Auto) Gran # Lymph # (Auto) Taliaferro # (Auto) Eos # (Auto) Baso # (Auto) APTT 70.1 H Sodium Potassium Chloride Carbon Dioxide Anion Gap BUN Creatinine Est GFR ( Amer) Est GFR (Non-Af Amer) POC Glucose (mg/dL) Random Glucose Calcium Iron 43 L TIBC 290 % Saturation 15 L Ferritin Total Bilirubin AST ALT Alkaline Phosphatase Total Protein Albumin Globulin Albumin/Globulin Ratio Carcinoembryonic Ag 4.2 H 05/06/18 08:13 WBC RBC Hgb Hct MCV MCH MCHC RDW Plt Count MPV Gran % Lymph % (Auto) Taliaferro % (Auto) Eos % (Auto) Baso % (Auto) Gran # Lymph # (Auto) Taliaferro # (Auto) Eos # (Auto) Baso # (Auto) APTT Sodium Potassium Chloride Carbon Dioxide Anion Gap BUN Creatinine Est GFR ( Amer) Est GFR (Non-Af Amer) POC Glucose (mg/dL) 87 Random Glucose Calcium Iron TIBC % Saturation Ferritin Total Bilirubin AST ALT Alkaline Phosphatase Total Protein Albumin Globulin Albumin/Globulin Ratio Carcinoembryonic Ag Assessment & Plan - Assessment and Plan (Free Text) Assessment: An 87 year old female who came in to the ER due to shortness of breath. She was sent by her PMD due to worsening shortness of breath. History of hypertension,status post AVR/MVR ( can not remember date.) PPM,on coumadin, chronic congestive heart failure,hypothyroidism, diabetes mellitus, former smoker,history of seizures, gastric bypass,right hip surgery. Recently found to have left renal renal mass being followed up by Dr. Walter. For possible renal biopsy on Tuesday. Coumadin held and started on Heparin drip.Acute decompensated systolic dysfunction congestive heart failure. Review of previous cardiac work up: 10/30/15- ECHO-Left ventricular systolic function moderate to severely impaired LVEF 30-35 %, Moderate to severe hypokinesis Abnormal prosthetic aortic valve gradient,Prosthetic mitral valve normal Moderate to severe TR 01/24/15- Stress Test- Abnormal,mid anteroseptal defect suspicious of ischemia Plan: Will order ECHO to evaluate LV function and prosthetic valves Agree to hold Coumadin for possible renal biopsy Continue Heparin drip, follow titration protocol 12 lead EKG atrial fibrillation controlled rate 70's Troponin normal On Lipitor 10 mg daily,Lasix 40 mg daily,Losartan 25 mg daily Lopressor 25 mg BID, Kdur 20 meq daily. Will order Xopenex PRN Will order baseline TSH and Hbg A1C and lipid profile Continue current treatment Continue current medications Will follow up Plan and treatment discussed with Dr. De Paz Thank you Dr. Dale for the opportunity of taking care of Ms. Terra Knight - Date & Time Date: 05/06/18 Time: 06:30
[2018-05-06] MEDS ORDERED: Levalbuterol 0.63 MG/3 ML Inhal Soln UD IH PRN (13:00)
--- NOTE | 2018-05-06 20:01 | CARD ---
APPROVED REPORT Date of service: 05/06/2018 EXAM: Two-dimensional and M-mode echocardiogram with Doppler and color Doppler. INDICATION LV Function: 2D DIMENSIONS Left Atrium (2D)4.5 (1.6-4.0cm)IVSd1.3 (0.7-1.1cm) Aortic Root (2D)3.6 (2.0-3.7cm)LVDd4.1 (3.9-5.9cm) PWd1.3 (0.7-1.1cm)LVDs2.8 (2.5-4.0cm) FS (%) 32.3 %LVEF (%)35.0 (>50%) Aortic Valve AoV Peak Fjdlkzfx544.0cm/sAoV VTI61.0cmAO Peak GR.36mmHg AO Mean GR.16mmHg Mitral Valve MV E Zckyphsk291.0cm/sMV E Peak Gr.15mmHgMV E Mean Gr.6mmHg MV QQD240hmU/A ratio0.0MVA (PHT)1.51cm2 TDI Lateral E' Peak V7.41cm/sMedial E' Peak V2.84cm/sE/Lateral E'24.0 E/Medial E'62.7 Pulmonary Valve PV Peak Gakgtkww63.6cm/sPV Peak Grad.2mmHg Tricuspid Valve TR Peak Gyacfgru632rq/sRAP [id number] Peak Gr.31mmHg [id number] LEFT VENTRICLE The left ventricle is normal size. There is mild concentric left ventricular hypertrophy. The systolic function is severely impaired. Apical motion consistent with pacemaker activation. RIGHT VENTRICLE The right ventricle is normal size. There is normal right ventricular wall thickness. The right ventricular systolic function is normal. There is a pacemaker lead in the right ventricle. ATRIA The left atrium is mildly dilated. The right atrium is mildly dilated. AORTIC VALVE There is mild aortic regurgitation. There are abnormal prosthetic aortic valve gradients consistent with Moderate Aortic stenosis MITRAL VALVE There is no mitral valve regurgitation noted. ? Prosthetic mitral valve vs annuloplasty appears significanly stenosed TRICUSPID VALVE There is mild tricuspid regurgitation. There is mild pulmonary hypertension. PERICARDIAL EFFUSION There is no pericardial effusion. <Conclusion> The left ventricle is normal size. There is mild concentric left ventricular hypertrophy. The systolic function is severely impaired. Apical motion consistent with pacemaker activation. There are abnormal prosthetic aortic valve gradients consistent with Moderate Aortic stenosis There is mild aortic regurgitation. ? Mitral annuloplasty appears significanly stenosed ? Tricusped annuloplasty appears mildly stenosed There is mild tricuspid regurgitation. There is mild pulmonary hypertension.
[2018-05-06] MEDS: Heparin25000 units/250ml 1/2NS 25,000 UNITS/250 ML BAG IV SCH (22:45)
--- NOTE | 2018-05-07 00:11 | PN ---
DATE: 05/06/2018 SUBJECTIVE: Patient is 87 years old, seen and examined, mild shortness of breath. States she feels better than before. Otherwise, no nausea or vomiting. No diarrhea. Eating and tolerating. PHYSICAL EXAMINATION: GENERAL: She is awake and alert. VITAL SIGNS: She is afebrile, pulse 77, respirations 19, blood pressure 139/69. LUNGS: Bilateral fair airflow. No rhonchi or crackle. HEART: S1, S2 audible. ABDOMEN: Soft, nontender. No rebound. No guarding. NEUROLOGICAL: She is awake, alert, oriented, able to communicate. EXTREMITIES: Bilateral leg, no edema. LABORATORY EXAM: Sodium 144, potassium 4.4, chloride 105, CO2 of 26, BUN 21, creatinine 1.5. Blood sugar of 93. Iron 43, TIBC is 290, saturation is . AST 45, ALT 50, alk phos is 81. WBC 7.9, hemoglobin 9, hematocrit 28.2, platelets of 333. PTT 38.6. Echocardiogram is pending. ASSESSMENT: 1. Congestive heart failure exacerbation. 2. Recently diagnosed renal mass. 3. Hypertension. 4. Status post aortic valve replacement and mitral valve replacement. 5. Status post pacemaker placement on anticoagulation. 6. Hypothyroidism. 7. Zpe-iikpipa-fcwwictgu diabetes. 8. History of seizure disorder. 9. History of gastric bypass. 10. Status post right hip surgery. 11. Left renal mass. PLAN: Coumadin is on hold. We will keep her on heparin. We will reach out to Dr. Walter if she was scheduled for renal biopsy on Tuesday. We will monitor her PT, PTT and will diurese and carefully monitor her electrolytes. Charito Dale MD
[2018-05-07 04:25] LABS: ALB/GLOB RATIO 0.9 (1.1-1.8); ALBUMIN 4.2 g/dL (3.0-4.8); CALCIUM 9.1 mg/dL (8.4-10.5)
[2018-05-07] MEDS: Potassium Chloride 20 mEq ER Tab PO SCH (09:37)
--- NOTE | 2018-05-07 09:57 | CP.PCM.PN ---
Subjective - Date & Time of Evaluation Date of Evaluation: 05/07/18 Time of Evaluation: 06:55 - Subjective Subjective: Awake, alert.denies chest pain, denies shortness of breath,feels okay Reason for consultation:Cardiac evaluation for shortness of breath,history of hypertension, congestive heart failure,hypothyroidism, diabetes,PPM Seen and examined by me and Dr. De Paz Objective - Vital Signs/Intake and Output Vital Signs (last 24 hours): Temp Pulse Resp BP Pulse Ox 98.3 F 65 20 115/62 100 05/07/18 06:00 05/07/18 09:38 05/07/18 06:00 05/07/18 09:38 05/07/18 06:00 Intake and Output: 05/07/18 05/07/18 06:59 18:59 Intake Total 438 Output Total 800 Balance -362 - Medications Medications: Current Medications Acetaminophen (Tylenol 325mg Tab) 650 mg PO Q4 PRN PRN Reason: Fever >100.4 F Atorvastatin Calcium (Lipitor) 10 mg PO DIN [facility] Last Admin: 05/06/18 17:37 Dose: 10 mg Donepezil HCl (Aricept) 5 mg PO DAILY [facility] Last Admin: 05/07/18 09:38 Dose: 5 mg Famotidine (Pepcid) 20 mg PO 1000,2200 [facility] Last Admin: 05/07/18 09:38 Dose: 20 mg Furosemide (Lasix) 40 mg IVP DAILY [facility] Last Admin: 05/07/18 09:37 Dose: 40 mg Heparin Sodium/Sodium Chloride (Heparin 60565 Units/250ml 1/2 Normal Saline) 25 ,000 units in 250 mls @ 8.165 mls/hr IV .Q24H NAVYA; 12 UNITS/KG/HR PRN Reason: Protocol Last Admin: 05/06/18 22:45 Dose: 20.57 units/kg/hr, 14 mls/hr Lamotrigine (Lamictal) 100 mg PO BID [facility] PRN Reason: Protocol Last Admin: 05/07/18 09:37 Dose: 100 mg Levalbuterol HCl (Xopenex) 0.63 mg IH [id number] PRN PRN Reason: Shortness of Breath Losartan Potassium (Cozaar) 25 mg PO DAILY [facility] Last Admin: 05/07/18 09:38 Dose: 25 mg Metoprolol Tartrate (Lopressor) 25 mg PO BID [facility] Last Admin: 05/07/18 09:38 Dose: 25 mg Mirtazapine (Remeron) 15 mg PO DAILY [facility] Last Admin: 05/07/18 09:38 Dose: 15 mg Potassium Chloride (K-Dur 20 Meq Er Tab) 20 meq PO DAILY [facility] Last Admin: 05/07/18 09:37 Dose: 20 meq - Labs Labs: 05/06/18 05:00 05/07/18 04:00 PT 14.2 SECONDS (9.4-12.5) H 05/05/18 15:24 INR 1.24 (0.93-1.08) H 05/05/18 15:24 APTT 74.0 Seconds (25.1-36.5) H 05/07/18 04:00 - Constitutional Appears: No Acute Distress - Eye Exam Eye Exam: Normal appearance - ENT Exam ENT Exam: Mucous Membranes Moist - Respiratory Exam Respiratory Exam: Decreased Breath Sounds, NORMAL BREATHING PATTERN - Cardiovascular Exam Cardiovascular Exam: REGULAR RHYTHM, +S1, +S2 Additional comments: PPM - GI/Abdominal Exam GI & Abdominal Exam: Soft, Normal Bowel Sounds - Extremities Exam Extremities Exam: Normal Capillary Refill - Neurological Exam Neurological Exam: Alert, Awake, Oriented x3 - Psychiatric Exam Psychiatric exam: Normal Affect - Skin Skin Exam: Dry, Warm Assessment and Plan - Assessment and Plan (Free Text) Assessment: An 87 year old female who came in to the ER due to shortness of breath. She was sent by her PMD due to worsening shortness of breath. History of hypertension,status post AVR/MVR ( can not remember date.) PPM,on coumadin, chronic congestive heart failure,hypothyroidism, diabetes mellitus, former smoker,history of seizures, gastric bypass,right hip surgery. Recently found to have left renal renal mass being followed up by Dr. Walter. For possible renal biopsy on Tuesday. Coumadin held and started on Heparin drip.Acute decompensated systolic dysfunction congestive heart failure. Review of previous cardiac work up: 10/30/15- ECHO-Left ventricular systolic function moderate to severely impaired LVEF 30-35 %, Moderate to severe hypokinesis Abnormal prosthetic aortic valve gradient,Prosthetic mitral valve normal Moderate to severe TR 01/24/15- Stress Test- Abnormal,mid anteroseptal defect suspicious of ischemia Plan: ECHO to evaluate LV function and prosthetic valves Continue Heparin drip, PTT therapeutic Hold Coumadin for possible renal biopsy Stable heart rate and blood pressure On Lipitor 10 mg daily,Lasix 40 mg daily,Losartan 25 mg daily Lopressor 25 mg BID, Kdur 20 meq daily. TSH normal Continue current treatment Continue current medications Will follow up Plan and treatment discussed with Dr. De Paz
--- NOTE | 2018-05-07 12:14 | CON ---
DATE: 05/06/2018 LOCATION: Patient is in room 272, bed 2. REASON FOR CONSULTATION: This is a Hematology/Oncology consultation for this 87-year-old female who is well known to me from being seen as an outpatient with diagnosis of what appears to be locally advanced renal cell carcinoma that was picked up on workup while she was in [facility] for symptoms associated with shortness of breath and lower abdominal pain. Reason for consultation is Oncology. BRIEF MEDICAL HISTORY: This is an 87-year-old female who came to the ER due to shortness of breath, generalized weakness. She was sent to the ER by her PMD due to worsening shortness of breath and increasing weakness and hard time getting out of bed, history of hypertension, congestive heart failure, hypothyroidism, diabetes, former smoker, history of seizures, gastric bypass, right hip surgery, status post AVR, MVR and coronary artery disease. Patient is on outpatient Coumadin and recently discovered the renal cell carcinoma, which had been reviewed and seen by Dr. Sexton, Urologic oncologist at [facility], who felt that the patient is not a surgical candidate, even though it is potentially resectable, given the multiple comorbid medical issues. Wants the patient to be seen by us to see if there is any value systemic fashion, given the patient's advanced age and multiple comorbid medical issues. We have told the patient and the family and Dr. Sexton that we would do tissue diagnosis before initiation or at least evaluation for initiation of any particular therapy. Patient, since she was in the hospital, had actually stopped the Coumadin and has been transitioned over to IV heparin in preparation for possible biopsy by Dr. Byron Lui in Interventional Radiology. Patient speaks mostly Afghan. So, we have been trying to talk to her through utility systems repairer operator and through her son over the phone. REVIEW OF SYSTEMS: All systems are reviewed with no additional complaints except what is mentioned in the HPI. PAST MEDICAL HISTORY: As mentioned, is significant for cardiac disease, hip surgery and patient is on Coumadin for AVR and MVR. ALLERGIES: PATIENT HAS ALLERGIES TO PAIN MEDICINES AND ALLERGIES TO PENICILLIN AND FISH IN THE FORM OF ITCHING. MEDICATIONS: Patient's medications were reviewed. She is on Tylenol 650 every 4 hours p.r.n., Lipitor 10 mg daily, Aricept 5 mg p.o. daily, famotidine 20 mg p.o. daily, Lasix 40 mg daily. She is on heparin weight based protocol p.r.n. She is on Lamictal 100 b.i.d. for seizure disorder. She is on losartan 25 mg p.o. daily, metoprolol tartrate 25 b.i.d., Remeron 15 mg p.o. daily, K-dur 20 mEq p.o. daily. PHYSICAL EXAMINATION: GENERAL: Patient is in no acute distress. VITAL SIGNS: Recent vital signs as noted on the chart, reveal T-max of 98.4, pulse 80, respirations 18, blood pressure 130/70, pulse ox is 96% on room air. HEENT: Head is normocephalic, atraumatic. Conjunctivae pale. Sclerae anicteric. Pupils are equally reactive to light and accommodation. Examination of oropharynx reveals tongue to be moist. No ulcerations are noted. No evidence of fungal infection noted. NECK: Supple. There is no adenopathy. No jugular venous distention noted. LUNGS: Decreased breath sounds in both bases, without any adventitious sounds. HEART: Examination of cardiovascular system reveals prosthetic sounds of the heart valves. No adventitious sounds are heard. ABDOMEN: Soft, nontender. Liver and spleen not palpable. No rebound, rigidity, or guarding is noted. NEUROLOGIC: Reveals patient's higher functions to be normal. No gross focal deficits are noted. SKIN: Normal, fair in turgor. No skin lesions are noted. /RECTAL: Deferred. LABORATORY DATA: Labs from today reveal the white count of 7.9, hemoglobin of 9, hematocrit 28.2, and platelet count of 333,000. Electrolytes: Sodium of 144, K of 4.4, chloride 105, CO2 of 26, BUN of 25, creatinine 1.5 and blood sugar of 93. Patient has significant cardiac disease with left ventricular systolic dysfunction with ejection fraction of 30% to 35%, prosthetic aortic valve, prosthetic mitral valve, [id number] tricuspid regurgitation, chronically on heparin. Stress test is abnormal with mild anteroseptal defect, which was done in 2015. ASSESSMENT, NOTES AND PLAN: Patient has potentially resectable renal cell carcinoma, at least clinically, pending biopsy. Because of the multiple comorbid medical issues, plan is to do just a biopsy to ascertain the fact that this is indeed renal cell carcinoma versus lymphoma or any other pathology before making further decision as to treat her aggressively or to not treat that at all. Patient is being worked up from her other comorbid medical issues including an echocardiogram until we know which direction we are going. Patient's electrocardiogram shows atrial fibrillation, controlled rate of 70 with normal troponin. We will plan on coordinating the biopsy after speaking to the PMD and the consultants involved in her care. Time spent with the patient is greater than 80 minutes in correlating all the facts, talking to the family, specifically, because of language barrier. Please make a note this is a comprehensive medically necessary visit of this patient with multiple comorbid medical issues. Jazmyn Walter MD
--- NOTE | 2018-05-07 18:55 | PN ---
DATE: 05/07/2018 HEMATOLOGY/ONCOLOGY PROGRESS NOTE SUBJECTIVE: This is an 87-year-old female with newly discovered left renal mass that is not invading the vena cava and the most important and known najma involvement, more recently on the PET CT scan shows no evidence of distant metastasis, here for evaluation and assessment possible CT-guided biopsy in the a.m. The patient was admitted to the hospital with progressive chest discomfort and shortness of breath which has improved since admission and the patient is on IV heparin in preparation for the planned procedure tomorrow by the Interventional Radiology, Dr. Byron Lui. The patient was discovered to have a renal mass when she was being worked up for urinary tract infection where she was in [facility]. In this background history, the patient also has a history of aortic and mitral valve replacement, in addition to which the patient has multiple other comorbid medical issues including history of pinning of the hip as well. The patient currently is feeling better. Denies any significant shortness of breath, overall feels better. No history of any chest pain, fevers, chills, nausea or vomiting. PHYSICAL EXAMINATION VITAL SIGNS: The patient is examined in bed. Vital signs are stable. T-max is 98.4, pulse rate 65, respirations 20, blood pressure 115/62, pulse ox is 100% on room air. GENERAL: The patient is awake, alert and oriented, in no significant distress. HEENT: Head: Normocephalic and atraumatic. Conjunctivae pale. Sclerae is anicteric. Pupils are equally reactive to light and accommodation. Examination of the oropharynx reveals no oropharyngeal lesions. Tongue is moist. No ulcerations are noted. NECK: Supple. There is no adenopathy. LUNGS: Clear to percussion and auscultation. Decreased breath sounds in the bases. CARDIOVASCULAR SYSTEM: Reveals PMI to be in the fifth intercostal space, inside the midclavicular line. S1 and S2 are normal. No gallop or murmur is heard. ABDOMEN: Soft, nontender. Liver and spleen not palpable. No rebound, rigidity or guarding is noted. EXTREMITIES: There is no cyanosis, clubbing or edema. NEUROLOGIC: Reveals higher functions to be normal. No focal deficits are noted. SKIN: Warm and dry. No skin lesions are noted. AND RECTAL: Deferred. MEDICATIONS: The patient's medications are reviewed. They are unchanged from yesterday. The patient is on heparin drip at this point in time. LABORATORY DATA: From today reveals white count of 7.9, hemoglobin of 9, hematocrit 28.2, platelet count 333. Sodium is 143, K is 4.9, chloride is 104, CO2 27, BUN 23, creatinine 1.5 and blood sugar is 98. ASSESSMENT NOTES: An 87-year-old female who came into the ER with progressive shortness of breath, was sent to the ER by PMD for evaluation of the same, history of hypertension, status post aortic valve replacement, mitral valve replacement, permanent pacemaker implantation on Coumadin, chronic congestive heart failure, hypothyroidism, diabetes mellitus, former smoker, history of seizure, gastric bypass, right hip surgery, found to have a left renal mass which will need a biopsy possibly on Tuesday. Coumadin has been held and she has been switched to IV heparin for the same. The patient's prior echo on 10/30/2015 showed left ventricular systolic function to be moderately decreased and left ventricular ejection fraction of 30%-35%. The stress test also showed mild anteroseptal defect suspicious for an ischemia on 01/24/2014. PLAN: The patient is scheduled to get another echo. The patient is on heparin. We will try to proceed and expedite the planned biopsy, for after which she can start the Coumadin once she is stabilized. In the meantime, we will continue the current medications, follow her labs. Routine post exam instructions have been given to the patient. We will speak to Dr. Ambriz tomorrow once the biopsy is available. Follow the case and make appropriate recommendation. We will speak to Dr. De Paz as well. Jazmyn Walter MD
--- NOTE | 2018-05-07 20:12 | PN ---
DATE: 05/07/2018 SUBJECTIVE: The patient is 87 years old, seen and examined, lying in bed, seems to be comfortable, complained of mild shortness of breath, otherwise doing well. No chest pain. No nausea or vomiting. Eating and tolerating. PHYSICAL EXAMINATION: VITAL SIGNS: She is afebrile, pulse 60, respirations 16, and blood pressure 126/55. LUNGS: Bilateral fair airflow. No rhonchi or crackle. HEART: S1 and S2 audible. ABDOMEN: Soft and nontender. No rebound. No guarding. NEUROLOGICAL: She is awake, alert, oriented, and communicative. EXTREMITIES: Bilateral leg, no edema. LABORATORY EXAM: Her PTT is 74. Chemistry: Sodium 143, potassium 4.9, chloride 105, CO2 of 27. BUN 23, creatinine 1.5. Blood sugar of 98. AST 47, alkaline phosphatase is 300. ASSESSMENT: 1. Congestive heart failure exacerbation. 2. Generalized weakness. 3. Hypertension. 4. Hypothyroidism. 5. Zun-hjxwkko-kskkmmfzf diabetes. 6. Chronic obstructive pulmonary disease. 7. Seizure disorder. 8. History of gastric bypass. 9. History of aortic valve and mitral valve replacement. 10. Left renal mass. PLAN: The patient is currently on heparin that will be discontinued in the morning for possible biopsy in a.m. We will continue her on diuretics. Monitor CBC and CMP in a.m. In the meantime, we will continue all her usual medications. Charito Dale MD
[2018-05-07] MEDS: Heparin25000 units/250ml 1/2NS 25,000 UNITS/250 ML BAG IV SCH (22:27)
[2018-05-08 03:22] LABS: BASO # 0.02 K/mm3 (0.0-2.0); BASO % 0.3 % (0.0-3.0); EOS # 0.3 (0.0-0.7); EOS % 4.1 % (1.5-5.0); GRAN # 5.28 (1.4-6.5); GRAN % 66.9 % (50.0-68.0); HEMOGLOBIN 9.7 g/dL (12.0-16.0); LYMPH # 1.7 (1.2-3.4); LYMPH % 21.1 % (22.0-35.0); MEAN CELL VOLUME 80.5 fl (80.0-105.0); MEAN CORPUSCULAR HEMOGLOBIN 25.9 pg (25.0-35.0); MEAN CORPUSCULAR HGB CONC 32.2 g/dl (31.0-37.0); MONO # 0.6 (0.1-0.6); MONO % 7.6 % (1.0-6.0); RBC 3.74 10^6/uL (3.5-6.1); RED CELL DISTRIBUTION WIDTH 17.5 % (11.5-14.5); WHITE BLOOD COUNT 7.9 10^3/ul (4.5-11.0)
[2018-05-08 03:29] LABS: ALB/GLOB RATIO 0.9 (1.1-1.8); CALCIUM 8.8 mg/dL (8.4-10.5)
[2018-05-08] MEDS: Potassium Chloride 20 mEq ER Tab PO SCH (10:20)
--- NOTE | 2018-05-08 13:12 | PN ---
DATE: 05/08/2018 SUBJECTIVE: The patient is an 87 years old, seen and examined, sitting in chair, seems to be comfortable. No shortness of breath. Off of Coumadin. Currently on heparin. PHYSICAL EXAMINATION VITAL SIGNS: The patient is afebrile, pulse 75, respirations 20, and blood pressure 125/74. LUNGS: Bilateral fair airflow. No rhonchi or crackle. HEART: S1 and S2 audible. ABDOMEN: Soft and nontender. No rebound. No guarding. NEUROLOGICAL: She is awake and alert, able to communicate, ambulatory. EXTREMITIES: Bilateral leg, no edema. LABORATORY DATA: EKG shows demand pacemaker. ASSESSMENT: 1. Left renal mass. 2. Aortic valve replacement. 3. Mitral valve replacement. 4. Status post pacemaker placement. 5. Congestive heart failure, improving. 6. History of seizure disorder. PLAN: We will continue the patient on heparin. Spoke to Dr. Byron Liu. Plan is for renal biopsy done today or tomorrow morning. So, heparin will be stopped 6 hours prior to the procedure. The patient remains stable. If she has biopsy done today, she will be discharged in the a.m. Charito Dale MD
--- NOTE | 2018-05-08 18:53 | CP.PCM.PN ---
Subjective - Date & Time of Evaluation Date of Evaluation: 05/08/18 Time of Evaluation: 18:46 - Subjective Subjective: Tejal Smith, PGY2, Heme-Onc Progress Note for Dr Walter: Patient seen and examined at bedside. No acute events overnight. Patient reports mild headache. Denies fevers, chills, nausea, vomiting, sob, cp, dizziness, leg swelling, abdominal pain. Objective - Vital Signs/Intake and Output Vital Signs (last 24 hours): Temp Pulse Resp BP Pulse Ox 98.4 F 70 20 145/65 97 05/08/18 18:00 05/08/18 18:00 05/08/18 18:00 05/08/18 18:00 05/08/18 09:00 Intake and Output: 05/08/18 05/08/18 06:59 18:59 Intake Total 1033 100 Output Total 400 Balance 633 100 - Medications Medications: Current Medications Acetaminophen (Tylenol 325mg Tab) 650 mg PO Q4 PRN PRN Reason: Fever >100.4 F Atorvastatin Calcium (Lipitor) 10 mg PO DIN [facility] Last Admin: 05/07/18 17:47 Dose: 10 mg Donepezil HCl (Aricept) 5 mg PO DAILY [facility] Last Admin: 05/08/18 10:23 Dose: 5 mg Famotidine (Pepcid) 20 mg PO 1000,2200 [facility] Last Admin: 05/08/18 10:19 Dose: 20 mg Furosemide (Lasix) 40 mg IVP DAILY [facility] Last Admin: 05/08/18 10:23 Dose: 40 mg Heparin Sodium/Sodium Chloride (Heparin 48235 Units/250ml 1/2 Normal Saline) 25 ,000 units in 250 mls @ 8.165 mls/hr IV .Q24H [facility]; 12 UNITS/KG/HR PRN Reason: Protocol Last Titration: 05/08/18 11:53 Dose: 19.57 units/kg/hr, 13.315 mls/hr Lamotrigine (Lamictal) 100 mg PO BID [facility] PRN Reason: Protocol Last Admin: 05/08/18 10:20 Dose: 100 mg Levalbuterol HCl (Xopenex) 0.63 mg IH [id number] PRN PRN Reason: Shortness of Breath Losartan Potassium (Cozaar) 25 mg PO DAILY [facility] Last Admin: 05/08/18 10:19 Dose: 25 mg Metoprolol Tartrate (Lopressor) 25 mg PO BID [facility] Last Admin: 05/08/18 10:20 Dose: 25 mg Mirtazapine (Remeron) 15 mg PO DAILY [facility] Last Admin: 05/08/18 10:23 Dose: 15 mg Potassium Chloride (K-Dur 20 Meq Er Tab) 20 meq PO DAILY [facility] Last Admin: 05/08/18 10:20 Dose: 20 meq - Labs Labs: 05/08/18 03:05 05/08/18 03:05 PT 14.2 SECONDS (9.4-12.5) H 05/05/18 15:24 INR 1.24 (0.93-1.08) H 05/05/18 15:24 APTT 137.0 Seconds (25.1-36.5) H* 05/08/18 09:00 - Constitutional Appears: Non-toxic, No Acute Distress - Head Exam Head Exam: ATRAUMATIC, NORMOCEPHALIC - Eye Exam Eye Exam: EOMI, PERRL. absent: Conjunctival injection, Nystagmus, Scleral icterus Pupil Exam: NORMAL ACCOMODATION, PERRL. absent: Irregular, Miosis, Mydriatic, Unequal - ENT Exam ENT Exam: Mucous Membranes Moist - Neck Exam Neck Exam: Full ROM - Respiratory Exam Respiratory Exam: Clear to Ausculation Bilateral, NORMAL BREATHING PATTERN. absent: Chest Wall Tenderness, Decreased Breath Sounds, Prolonged Expiratory Phase, Rales, Rhonchi, Respiratory Distress, Stridor - Cardiovascular Exam Cardiovascular Exam: Irregular Rhythm - GI/Abdominal Exam GI & Abdominal Exam: Soft, Normal Bowel Sounds. absent: Firm, Guarding, Rigid, Tenderness, Hypoactive Bowel Sounds, Mass, Organomegaly, Rebound - Extremities Exam Extremities Exam: Pedal Edema - Back Exam Back Exam: NORMAL INSPECTION - Neurological Exam Neurological Exam: Alert, Awake, Oriented x3 - Psychiatric Exam Psychiatric exam: Normal Affect, Normal Mood - Skin Skin Exam: Dry, Normal Color, Warm Assessment and Plan - Assessment and Plan (Free Text) Assessment: 87 year old female with PMH CHF, HTN, hypothyroidism, CAD, OA, s/p aortic valve replacement, diabetic cardiomyopathy, former smoker, presents for increasing weakness, sob, admitted for CHF exacerbation. Oncology consulted for left renal mass: - Scheduled for renal biopsy tomorrow with Dr Lui at 9 AM. - Will need tissue diagnosis before initiation/recommendation of any therapy - On IV heparin. hold iV heparin 4-6 hours prior to biopsy - Will f/u biopsy results - Cardio consult appreciated. Case seen and discussed with Dr Walter.
--- NOTE | 2018-05-08 19:24 | PN ---
DATE: 05/08/2018 REASON FOR THE CONSULTATION: Followup cardiac evaluation, shortness of breath, history of hypertension, history of open heart surgery, status post AVR, MVR, hypothyroidism, status post pacemaker. SUBJECTIVE: The patient denies any chest pain. Denies any palpitation. Complained of shortness of breath on exertion. PHYSICAL EXAMINATION: GENERAL: Sitting on the bed comfortably, not in apparent distress. VITAL SIGNS: Temperature afebrile, heart rate 60, blood pressure 108/60. HEENT: PERRLA. Extraocular muscles intact. NECK: Supple. No carotid bruits or thyromegaly. CHEST: Clear to auscultation. HEART: S1 and S2 regular. ABDOMEN: Soft. EXTREMITIES: Clubbing and cyanosis negative. LABORATORY DATA: Blood workup as follows: WBC 7.9, hemoglobin , hematocrit 30.1, platelet count 356. Chemistry shows sodium 141, potassium , chloride 104, carbon dioxide 26, anion gap of 15, BUN 28, creatinine 1.6. Total protein 8.7, albumin 204, albumin-globulin ratio 0.9. The patient underwent echocardiography done day before yesterday, read by Dr. Rodriguez is decreased LV function, impaired apical motion of the pacemaker, abnormal prosthetic valve gradient across consistent with aortic stenosis, status post AVR, status post MVR. There is mild tricuspid regurgitation, RV systolic pressure 34. IMPRESSION: An 87-year-old female with past medical history of aortic valve replacement, mitral valve replacement, status post pacemaker, history of atrial fibrillation, recently found renal mass, needs biopsy, off Coumadin. EKG showed ventricular paced rhythm, underlying atrial fibrillation. RECOMMENDATION: We will review echo to assess LV function. Interim, agreed to hold Coumadin for biopsy. The patient is on heparin. Continue heparin. Continue losartan. Continue gentle diuretics. Continue metoprolol. Previous cardiac echo on 10/30/2015 shows ejection fraction of 30-35%, moderate to severe hypokinesis, abnormal prosthetic valve gradient, prosthetic mitral valve normal. Moderate to severe TR on 10/30/2015. The patient's stress test on 01/24/2015. Once the patient had a biopsy and find out the renal mass and echo done, we will outline the cardiac workup if needed. Interim, continue losartan, continue heparin, continue Lasix, continue atorvastatin, continue metoprolol. We will review the echo and further recommendations will be made. The patient has also renal insufficiency, creatinine clearance of 30 mL an hour. Avoid nephrotoxic medication. Troponin positive means no evidence of acute MD. Thank you, Dr. Dale, for providing us the opportunity in taking care of the patient, Terra Knight. To Puentes MD
[2018-05-09] MEDS ORDERED: Lidocaine 1% Inj (20ml) ONE (09:46)
[2018-05-09] MEDS ORDERED: Midazolam 2 MG/2 ML VIAL ONE (10:02)
[2018-05-09] MEDS ORDERED: Sodium Chloride 0.45% 1,000 ML IV SCH (10:45)
--- NOTE | 2018-05-09 12:29 | CP.PCM.PN ---
Subjective - Date & Time of Evaluation Date of Evaluation: 05/09/18 Time of Evaluation: 12:26 - Subjective Subjective: Tejal Smith, PGY2, Heme-Onc Progress Note for Dr Walter: Patient seen and examined at bedside. No acute events overnight. Patient mildly anxious about biopsy procedure this AM. Reassured patient about the procedure. Denies fevers, chills, nausea, vomiting, sob, cp, dizziness, leg swelling, abdominal pain. Objective - Vital Signs/Intake and Output Vital Signs (last 24 hours): Temp Pulse Resp BP Pulse Ox 98.2 F 70 18 128/68 99 05/09/18 11:29 05/09/18 11:29 05/09/18 11:29 05/09/18 11:29 05/09/18 11:29 Intake and Output: 05/09/18 05/09/18 06:59 18:59 Intake Total 2112 150 Output Total 750 Balance 1362 150 - Medications Medications: Current Medications Acetaminophen (Tylenol 325mg Tab) 650 mg PO Q4 PRN PRN Reason: Fever >100.4 F Atorvastatin Calcium (Lipitor) 10 mg PO DIN [facility] Last Admin: 05/08/18 18:10 Dose: 10 mg Donepezil HCl (Aricept) 5 mg PO DAILY [facility] Last Admin: 05/08/18 10:23 Dose: 5 mg Famotidine (Pepcid) 20 mg PO 1000,2200 [facility] Last Admin: 05/08/18 22:49 Dose: 20 mg Furosemide (Lasix) 40 mg IVP DAILY [facility] Last Admin: 05/08/18 10:23 Dose: 40 mg Heparin Sodium/Sodium Chloride (Heparin 51276 Units/250ml 1/2 Normal Saline) 25 ,000 units in 250 mls @ 8.165 mls/hr IV .Q24H [facility]; 12 UNITS/KG/HR PRN Reason: Protocol Last Titration: 05/08/18 19:28 Dose: 23.57 units/kg/hr, 16.037 mls/hr Sodium Chloride (Sodium Chloride 0.45%) 1,000 mls @ 60 mls/hr IV .[id number] [facility] Stop: 05/09/18 20:00 Last Admin: 05/09/18 12:15 Dose: 60 mls/hr Lamotrigine (Lamictal) 100 mg PO BID [facility] PRN Reason: Protocol Last Admin: 05/08/18 19:10 Dose: 100 mg Levalbuterol HCl (Xopenex) 0.63 mg IH [id number] PRN PRN Reason: Shortness of Breath Losartan Potassium (Cozaar) 25 mg PO DAILY [facility] Last Admin: 05/08/18 10:19 Dose: 25 mg Metoprolol Tartrate (Lopressor) 25 mg PO BID [facility] Last Admin: 05/08/18 19:10 Dose: 25 mg Mirtazapine (Remeron) 15 mg PO DAILY [facility] Last Admin: 05/08/18 10:23 Dose: 15 mg Potassium Chloride (K-Dur 20 Meq Er Tab) 20 meq PO DAILY [facility] Last Admin: 05/08/18 10:20 Dose: 20 meq - Labs Labs: 05/08/18 03:05 05/08/18 03:05 PT 14.2 SECONDS (9.4-12.5) H 05/05/18 15:24 INR 1.24 (0.93-1.08) H 05/05/18 15:24 APTT 88.1 Seconds 05/09/18 01:50 - Additional Findings Additional findings: - Constitutional Appears: Non-toxic, No Acute Distress - Head Exam Head Exam: ATRAUMATIC, NORMOCEPHALIC - Eye Exam Eye Exam: EOMI, PERRL. absent: Conjunctival injection, Nystagmus, Scleral icterus Pupil Exam: NORMAL ACCOMODATION, PERRL. absent: Irregular, Miosis, Mydriatic, Unequal - ENT Exam ENT Exam: Mucous Membranes Moist - Neck Exam Neck Exam: Full ROM - Respiratory Exam Respiratory Exam: Clear to Ausculation Bilateral, NORMAL BREATHING PATTERN. absent: Chest Wall Tenderness, Decreased Breath Sounds, Prolonged Expiratory Phase, Rales, Rhonchi, Respiratory Distress, Stridor - Cardiovascular Exam Cardiovascular Exam: Irregular Rhythm - GI/Abdominal Exam GI & Abdominal Exam: Soft, Normal Bowel Sounds. absent: Firm, Guarding, Rigid, Tenderness, Hypoactive Bowel Sounds, Mass, Organomegaly, Rebound - Extremities Exam Extremities Exam: Pedal Edema - Back Exam Back Exam: NORMAL INSPECTION - Neurological Exam Neurological Exam: Alert, Awake, Oriented x3 - Psychiatric Exam Psychiatric exam: Normal Affect, Normal Mood - Skin Skin Exam: Dry, Normal Color, Warm Assessment and Plan - Assessment and Plan (Free Text) Assessment: 87 year old female with PMH CHF, HTN, hypothyroidism, CAD, OA, s/p aortic valve replacement, diabetic cardiomyopathy, former smoker, presents for increasing weakness, sob, admitted for CHF exacerbation. Oncology consulted for left renal mass: - Scheduled for renal biopsy at [address] Lui - Will need tissue diagnosis before initiation/recommendation of any therapy - hold iV heparin 4-6 hours prior to biopsy - Will f/u biopsy results - Cardio consult appreciated. Case seen and discussed with Dr Walter.
[2018-05-09] MEDS: Potassium Chloride 20 mEq ER Tab PO SCH (12:40)
--- NOTE | 2018-05-09 15:30 | PN ---
Copied To: To Puentes MD Attending MD: To Puentes MD DATE: 05/09/2018 REASON FOR CONSULTATION AND FOLLOWUP: Cardiac evaluation, shortness of breath, history of hypertension, history of open heart surgery, history of AVR, MVR, hypothyroidism, status post pacemaker, for renal biopsy today. SUBJECTIVE: Patient denies any chest pain, shortness of breath or any palpitations. N.p.o. for renal biopsy. OBJECTIVE: GENERAL: Lying flat, not in apparent distress VITAL SIGNS: Temperature afebrile, heart rate 65, blood pressure 134/55. HEENT: PERRLA. Extraocular muscles are intact. NECK: Supple. No carotid bruits or thyromegaly. CHEST: Clear to auscultation. HEART: S1 and S2 regular. ABDOMEN: Soft. EXTREMITIES: Clubbing and cyanosis negative. LABORATORY DATA: Blood workup: WBC 7.8, hemoglobin 9.7, hematocrit 30.1, platelet count 356. Chemistries shows sodium 141, potassium 4, chloride 104, carbon dioxide 26, anion gap of 15, BUN 28, creatinine 1.6. IMPRESSION: An 87-year-old female with past medical history significant for aortic valve replacement and mitral valve replacement, status post pacemaker, history of atrial fibrillation, recently found renal mass, need biopsy, off Coumadin, on IV heparin, which is on hold and patient is n.p.o. for biopsy today. EKG shows V-pacing with underlying atrial fibrillation. RECOMMENDATIONS: Continue to hold heparin until the biopsy done and no risk of bleeding, then we will restart anticoagulation. Follow up biopsy. In addition, continue gentle diuretics, continue metoprolol, continue Lasix, continue atorvastatin. Patient had echocardiography on 05/06/[address] Rodriguez. Ejection fraction 30%-35%, status post AVR, status MVR, status post pacemaker. We will repeat blood workup tomorrow for post biopsy. Thank you, Dr. Dale, for providing us the opportunity in taking care of the patient, Terra Knight. To Puentes MD
--- NOTE | 2018-05-09 15:37 | PN ---
Copied To: Charito Dale MD Attending MD: Charito Dale MD DATE: 05/09/2018 SUBJECTIVE: Patient is 87 years old, seen and examined, getting ready to have renal mass biopsy done. Heparin was stopped. PHYSICAL EXAMINATION: GENERAL: Awake, alert, oriented, and communicative. VITAL SIGNS: Patient is afebrile, pulse 70, respirations 18, and blood pressure 128/68. LUNGS: Bilateral fair airflow. No rhonchi or crackles. HEART: S1, S2 audible. ABDOMEN: Soft, nontender. No rebound. No guarding. NEUROLOGIC: She is awake, alert, oriented, able to communicate. LABORATORY DATA: WBV 7.9, hemoglobin 9.7, hematocrit 30.1, platelets 356. PTT is 88. Chemistry: Blood sugar is 84. ASSESSMENT: 1. Renal mass biopsy. 2. Status post aortic valve replacement. 3. Status post mitral valve replacement. 4. Status post pacemaker placement. 5. History of seizure disorder. 6. Mild dementia. PLAN: We will talk to Dr. Byron Lui. We will continue on IV fluids. We will start aspirin post procedure once okay with Dr. Byron Lui and we will start on Coumadin also, and we will follow up CBC and CMP in a.m. Charito Dale MD
[2018-05-09] MEDS ORDERED: Heparin25000 units/250ml 1/2NS 25,000 UNITS/250 ML BAG IV SCH (17:00)
[2018-05-09] MEDS: Heparin25000 units/250ml 1/2NS 25,000 UNITS/250 ML BAG IV SCH (17:00)
[2018-05-10 05:43] LABS: BASO # 0.02 K/mm3 (0.0-2.0); BASO % 0.2 % (0.0-3.0); EOS # 0.4 (0.0-0.7); EOS % 4.5 % (1.5-5.0); GRAN # 5.4 (1.4-6.5); GRAN % 63.5 % (50.0-68.0); HEMOGLOBIN 9.3 g/dL (12.0-16.0); LYMPH # 2.1 (1.2-3.4); LYMPH % 24.5 % (22.0-35.0); MEAN CORPUSCULAR HEMOGLOBIN 25.5 pg (25.0-35.0); MEAN CORPUSCULAR HGB CONC 31.8 g/dl (31.0-37.0); MONO # 0.6 (0.1-0.6); MONO % 7.3 % (1.0-6.0); RBC 3.65 10^6/uL (3.5-6.1); RED CELL DISTRIBUTION WIDTH 17.7 % (11.5-14.5); WHITE BLOOD COUNT 8.5 10^3/ul (4.5-11.0)
[2018-05-10 05:49] LABS: INR 1.18; PROTHROMBIN TIME 13.6 SECONDS (9.4-12.5)
[2018-05-10 06:11] LABS: ALB/GLOB RATIO 0.9 (1.1-1.8); ALBUMIN 4.2 g/dL (3.0-4.8); CALCIUM 9.3 mg/dL (8.4-10.5)
--- NOTE | 2018-05-10 07:21 | CP.PCM.PN ---
Subjective - Date & Time of Evaluation Date of Evaluation: 05/10/18 Time of Evaluation: 06:40 - Subjective Subjective: no distress,awake,denies chest pain, denies shortness of breath Reason for consultation:Cardiac evaluation for shortness of breath,history of hypertension, congestive heart failure,hypothyroidism, diabetes,PPM Seen and examined by me and Dr. Puentes Objective - Vital Signs/Intake and Output Vital Signs (last 24 hours): Temp Pulse Resp BP Pulse Ox 97.5 F L 72 20 143/75 96 05/10/18 06:00 05/10/18 06:00 05/10/18 06:00 05/10/18 06:00 05/10/18 06:00 Intake and Output: 05/10/18 05/10/18 06:59 18:59 Intake Total 1034 93 Output Total 1500 Balance -466 93 - Medications Medications: Current Medications Acetaminophen (Tylenol 325mg Tab) 650 mg PO Q4 PRN PRN Reason: Fever >100.4 F Atorvastatin Calcium (Lipitor) 10 mg PO DIN [facility] Last Admin: 05/09/18 17:44 Dose: 10 mg Donepezil HCl (Aricept) 5 mg PO DAILY [facility] Last Admin: 05/09/18 12:37 Dose: 5 mg Famotidine (Pepcid) 20 mg PO 2200 [facility] Last Admin: 05/09/18 22:24 Dose: 20 mg Furosemide (Lasix) 40 mg IVP DAILY [facility] Last Admin: 05/09/18 12:38 Dose: 40 mg Heparin Sodium/Sodium Chloride (Heparin 75591 Units/250ml 1/2 Normal Saline) 25 ,000 units in 250 mls @ 15.968 mls/hr IV .[id number] NAVYA; 24.43 UNITS/KG/HR PRN Reason: Protocol Last Titration: 05/10/18 07:02 Dose: 19.43 units/kg/hr, 12.7 mls/hr Lamotrigine (Lamictal) 100 mg PO BID [facility] PRN Reason: Protocol Last Admin: 05/09/18 17:44 Dose: 100 mg Levalbuterol HCl (Xopenex) 0.63 mg IH [id number] PRN PRN Reason: Shortness of Breath Losartan Potassium (Cozaar) 25 mg PO DAILY [facility] Last Admin: 05/09/18 12:37 Dose: 25 mg Metoprolol Tartrate (Lopressor) 25 mg PO BID [facility] Last Admin: 05/09/18 17:44 Dose: 25 mg Mirtazapine (Remeron) 15 mg PO DAILY [facility] Last Admin: 05/09/18 12:37 Dose: 15 mg Potassium Chloride (K-Dur 20 Meq Er Tab) 20 meq PO DAILY [facility] Last Admin: 05/09/18 12:40 Dose: 20 meq - Labs Labs: 05/10/18 05:15 05/10/18 05:15 PT 13.6 SECONDS (9.4-12.5) H 05/10/18 05:15 INR 1.18 05/10/18 05:15 APTT 99.0 Seconds (25.1-36.5) H 05/10/18 05:15 - Constitutional Appears: No Acute Distress - Eye Exam Eye Exam: Normal appearance - ENT Exam ENT Exam: Mucous Membranes Moist - Respiratory Exam Respiratory Exam: Decreased Breath Sounds, Clear to Ausculation Bilateral, NORMAL BREATHING PATTERN - Cardiovascular Exam Cardiovascular Exam: +S1, +S2 Additional comments: PPM Telemetry V-pacing - GI/Abdominal Exam GI & Abdominal Exam: Soft, Normal Bowel Sounds - Extremities Exam Extremities Exam: Normal Capillary Refill - Neurological Exam Neurological Exam: Alert, Awake, Oriented x3 - Psychiatric Exam Psychiatric exam: Normal Affect - Skin Skin Exam: Dry, Warm Assessment and Plan - Assessment and Plan (Free Text) Assessment: An 87 year old female who came in to the ER due to shortness of breath. She was sent by her PMD due to worsening shortness of breath. History of hypertension,status post AVR/MVR ( can not remember date.) PPM,on coumadin, chronic congestive heart failure,hypothyroidism, diabetes mellitus, former smoker,history of seizures, gastric bypass,right hip surgery. Recently found to have left renal renal mass being followed up by Dr. Walter. For possible renal biopsy on Tuesday. Coumadin held and started on Heparin drip.Acute decompensated systolic dysfunction congestive heart failure. Plan: Post renal biopsy yesterday Restarted Heparin drip post biopsy Will restart Coumadin, once therapeutic will discontinue heparin Stable heart rate and blood pressure On Lipitor 10 mg daily,Lasix 40 mg daily,Losartan 25 mg daily Lopressor 25 mg BID, Kdur 20 meq daily. Continue current treatment Continue current medications Discontinue telemetry Will follow up Plan and treatment discussed with Dr. Puentes
--- NOTE | 2018-05-10 08:13 | CP.PCM.PN ---
Subjective - Date & Time of Evaluation Date of Evaluation: 05/10/18 Time of Evaluation: 08:09 - Subjective Subjective: Jeff Landeros Called for Acute Agitation Patient is an 87 yo Yemeni-speaking female admitted for CHF exacerbation. On response to code atul, patient was exhibiting violent behavior. Patient attempted to punch, bite, and swing call dhaliwal towards staff. All verbal attempts to ameliorate the situation with the aide of Yemeni speaking staff at bedside failed to calm the patient. Objective - Vital Signs/Intake and Output Vital Signs (last 24 hours): Temp Pulse Resp BP Pulse Ox 97.5 F L 72 20 143/75 96 05/10/18 06:00 05/10/18 06:00 05/10/18 06:00 05/10/18 06:00 05/10/18 06:00 Intake and Output: 05/10/18 05/10/18 06:59 18:59 Intake Total 1034 93 Output Total 1500 Balance -466 93 - Medications Medications: Current Medications Acetaminophen (Tylenol 325mg Tab) 650 mg PO Q4 PRN PRN Reason: Fever >100.4 F Atorvastatin Calcium (Lipitor) 10 mg PO DIN [facility] Last Admin: 05/09/18 17:44 Dose: 10 mg Donepezil HCl (Aricept) 5 mg PO DAILY [facility] Last Admin: 05/09/18 12:37 Dose: 5 mg Famotidine (Pepcid) 20 mg PO 2200 [facility] Last Admin: 05/09/18 22:24 Dose: 20 mg Furosemide (Lasix) 40 mg IVP DAILY [facility] Last Admin: 05/09/18 12:38 Dose: 40 mg Heparin Sodium/Sodium Chloride (Heparin 58282 Units/250ml 1/2 Normal Saline) 25 ,000 units in 250 mls @ 15.968 mls/hr IV .[id number] NAVYA; 24.43 UNITS/KG/HR PRN Reason: Protocol Last Titration: 05/10/18 07:02 Dose: 19.43 units/kg/hr, 12.7 mls/hr Lamotrigine (Lamictal) 100 mg PO BID [facility] PRN Reason: Protocol Last Admin: 05/09/18 17:44 Dose: 100 mg Levalbuterol HCl (Xopenex) 0.63 mg IH [id number] PRN PRN Reason: Shortness of Breath Losartan Potassium (Cozaar) 25 mg PO DAILY [facility] Last Admin: 05/09/18 12:37 Dose: 25 mg Metoprolol Tartrate (Lopressor) 25 mg PO BID [facility] Last Admin: 05/09/18 17:44 Dose: 25 mg Mirtazapine (Remeron) 15 mg PO DAILY [facility] Last Admin: 05/09/18 12:37 Dose: 15 mg Potassium Chloride (K-Dur 20 Meq Er Tab) 20 meq PO DAILY [facility] Last Admin: 05/09/18 12:40 Dose: 20 meq Warfarin Sodium (Coumadin) 6 mg PO 1800 [facility] PRN Reason: Protocol Warfarin Sodium (Coumadin) 5 mg PO 1800 [facility] PRN Reason: Protocol - Labs Labs: 05/10/18 05:15 05/10/18 05:15 PT 13.6 SECONDS (9.4-12.5) H 05/10/18 05:15 INR 1.18 05/10/18 05:15 APTT 99.0 Seconds (25.1-36.5) H 05/10/18 05:15 - Constitutional Appears: Agitated - Head Exam Head Exam: NORMAL INSPECTION - Eye Exam Eye Exam: Normal appearance - Respiratory Exam Respiratory Exam: NORMAL BREATHING PATTERN - Cardiovascular Exam Cardiovascular Exam: REGULAR RHYTHM - Neurological Exam Neurological Exam: Alert, Awake - Psychiatric Exam Psychiatric exam: Agitated. absent: Normal Affect, Normal Mood - Skin Skin Exam: Normal Color Assessment and Plan - Assessment and Plan (Free Text) Assessment: 87 yo F admitted for CHF exacerbation. Code Landeros called for acute agitation with violent behavior. Plan: - Geodon 20 mg IM ordered - Soft 2 limb restraints for violent behavior
[2018-05-10] MEDS: Heparin25000 units/250ml 1/2NS 25,000 UNITS/250 ML BAG IV SCH (08:31)
[2018-05-10] MEDS: Potassium Chloride 20 mEq ER Tab PO SCH (09:52)
--- NOTE | 2018-05-10 13:57 | CP.PCM.PN ---
Subjective - Date & Time of Evaluation Date of Evaluation: 05/10/18 Time of Evaluation: 13:53 - Subjective Subjective: Tejal Smith, PGY2, Heme-Onc Progress Note for Dr Walter: Patient seen and examined at bedside. Jeff Landeros called on this patient at 8 AM this morning as patient was confused, agitated, received Geodon. At the time of my exam, patient appears anxious, but calm, in restraints. ROS unobtainable due to patient's acute agitation. Objective - Vital Signs/Intake and Output Vital Signs (last 24 hours): Temp Pulse Resp BP Pulse Ox 98.2 F 61 18 113/70 95 05/10/18 11:21 05/10/18 11:21 05/10/18 11:21 05/10/18 11:21 05/10/18 08:09 Intake and Output: 05/10/18 05/10/18 06:59 18:59 Intake Total 1034 133 Output Total 1500 Balance -466 133 - Medications Medications: Current Medications Acetaminophen (Tylenol 325mg Tab) 650 mg PO Q4 PRN PRN Reason: Fever >100.4 F Atorvastatin Calcium (Lipitor) 10 mg PO DIN [facility] Last Admin: 05/09/18 17:44 Dose: 10 mg Donepezil HCl (Aricept) 5 mg PO HS [facility] Famotidine (Pepcid) 20 mg PO 2200 [facility] Last Admin: 05/09/18 22:24 Dose: 20 mg Furosemide (Lasix) 40 mg IVP DAILY [facility] Last Admin: 05/10/18 09:53 Dose: 40 mg Heparin Sodium/Sodium Chloride (Heparin 64539 Units/250ml 1/2 Normal Saline) 25 ,000 units in 250 mls @ 15.968 mls/hr IV .[id number] NAVYA; 24.43 UNITS/KG/HR PRN Reason: Protocol Last Admin: 05/10/18 08:31 Dose: 19.43 units/kg/hr, 12.7 mls/hr Lamotrigine (Lamictal) 100 mg PO BID [facility] PRN Reason: Protocol Last Admin: 05/10/18 09:52 Dose: 100 mg Levalbuterol HCl (Xopenex) 0.63 mg IH [id number] PRN PRN Reason: Shortness of Breath Losartan Potassium (Cozaar) 25 mg PO DAILY [facility] Last Admin: 05/10/18 09:53 Dose: 25 mg Metoprolol Tartrate (Lopressor) 25 mg PO BID [facility] Last Admin: 05/10/18 09:53 Dose: 25 mg Mirtazapine (Remeron) 15 mg PO DAILY [facility] Last Admin: 05/10/18 09:53 Dose: 15 mg Potassium Chloride (K-Dur 20 Meq Er Tab) 20 meq PO DAILY [facility] Last Admin: 05/10/18 09:52 Dose: 20 meq Warfarin Sodium (Coumadin) 5 mg PO 1800 [facility] PRN Reason: Protocol - Labs Labs: 05/10/18 05:15 05/10/18 05:15 PT 13.6 SECONDS (9.4-12.5) H 05/10/18 05:15 INR 1.18 05/10/18 05:15 APTT 68.5 Seconds (25.1-36.5) H 05/10/18 12:35 - Additional Findings Additional findings: - Constitutional Appears: Non-toxic, No Acute Distress - Head Exam Head Exam: ATRAUMATIC, NORMOCEPHALIC - Eye Exam Eye Exam: EOMI, PERRL. absent: Conjunctival injection, Nystagmus, Scleral icterus Pupil Exam: NORMAL ACCOMODATION, PERRL. absent: Irregular, Miosis, Mydriatic, Unequal - ENT Exam ENT Exam: Mucous Membranes Moist - Neck Exam Neck Exam: Full ROM - Respiratory Exam Respiratory Exam: Clear to Ausculation Bilateral, NORMAL BREATHING PATTERN. absent: Chest Wall Tenderness, Decreased Breath Sounds, Prolonged Expiratory Phase, Rales, Rhonchi, Respiratory Distress, Stridor - Cardiovascular Exam Cardiovascular Exam: Irregular Rhythm - GI/Abdominal Exam GI & Abdominal Exam: Soft, Normal Bowel Sounds. absent: Firm, Guarding, Rigid, Tenderness, Hypoactive Bowel Sounds, Mass, Organomegaly, Rebound - Extremities Exam Extremities Exam: Pedal Edema - Back Exam Back Exam: NORMAL INSPECTION - Neurological Exam Neurological Exam: Alert, Awake, confused - Psychiatric Exam Psychiatric exam: Normal Affect, Normal Mood - Skin Skin Exam: Dry, Normal Color, Warm Assessment and Plan - Assessment and Plan (Free Text) Assessment: 87 year old female with PMH CHF, HTN, hypothyroidism, CAD, OA, s/p aortic valve replacement, diabetic cardiomyopathy, former smoker, presents for increasing weakness, sob, admitted for CHF exacerbation. Oncology consulted for left renal mass, s/p CT guided renal biopsy yesterday: - Neurology and Psych consulted for confusion this AM. Patient has a history of seizures. - s/p biopsy. F/u results. - Will need tissue diagnosis before initiation/recommendation of any therapy - On heparin drip. Started coumadin 5 mg daily. F/u daily INR. - Cardio consult appreciated. Case seen and discussed with Dr Walter.
--- NOTE | 2018-05-10 15:13 | PN ---
Copied To: Charito Dale MD Attending MD: Charito Dale MD DATE: 05/10/2018 SUBJECTIVE: Patient is 87 years old, had episode of confusion and agitation, she pulled out her IV, she was screaming, yelling, throwing things; was given Geodon, seems to be sleepy, more comfortable. Able to answer simple questions. PHYSICAL EXAMINATION: VITAL SIGNS: She is afebrile, pulse 74, respirations 20, blood pressure 118/52. LUNGS: Bilateral fair airflow. No rhonchi or crackles. HEART: S1, S2 audible. ABDOMEN: Soft, nontender. No rebound. No guarding. NEUROLOGIC: She is sleepy, but arousable. DATA: Laboratory exam, WBC is 8.5, hemoglobin 9.3, hematocrit 29.3, platelets of 361. PT 13.6, INR 1.16, PTT is 99. Chemistry: Sodium 141, potassium 4.7, chloride 106, CO2 23, BUN 28, creatinine 1.7, blood sugar 96. ASSESSMENT AND PLAN: 1. Left flank renal mass, status post CT-guided biopsy. 2. Status post aortic valve replacement. 3. Status post mitral valve replacement. 4. Dementia. 5. Hypertension. 6. Coronary artery disease. 7. History of seizure disorder. So, plan is currently, the patient is on heparin. She has been started on Coumadin and follow up PT/INR until it is therapeutic. INR has to be between 2.5 to 3 because of her prosthetic valve; until that, she needed to be in TCU, to continue heparin and Coumadin and get physical therapy and if she is accepted, she can be transferred to TCU. Charito Dale MD
--- NOTE | 2018-05-10 17:35 | CT ---
PROCEDURE: CT guided left renal biopsy. HISTORY: 6 cm left renal mass. Evaluate for malignancy. PHYSICIAN(S): Byron Lui MD. TECHNIQUE: The relative risks and indications of the procedure were explained to the patient and consent obtained. The patient was placed prone on the CT scanner and preliminary images through the kidneys obtained. Conscious sedation and monitoring were provided throughout the procedure by a nurse. There is a solid 6 cm left renal mass present. A left posterior approach was selected and the area prepped and draped in the usual sterile fashion. 1% Xylocaine was used to anesthetize the skin and soft tissues. A 17-gauge guiding needle was advanced into the 6 cm left renal mass. Its position was confirmed with CT. Using coaxial technique, multiple core biopsies were obtained. The postprocedure images show no evidence of significant hemorrhage. IMPRESSION: 1. CT-guided left renal biopsy as described above.
[2018-05-11] MEDS: Heparin25000 units/250ml 1/2NS 25,000 UNITS/250 ML BAG IV SCH ×2 (00:26→05:15)
[2018-05-11 06:51] LABS: BASO # 0.04 K/mm3 (0.0-2.0); BASO % 0.5 % (0.0-3.0); EOS # 0.3 (0.0-0.7); EOS % 3.8 % (1.5-5.0); GRAN # 5.9 (1.4-6.5); GRAN % 67.2 % (50.0-68.0); HEMOGLOBIN 9.6 g/dL (12.0-16.0); LYMPH % 22.3 % (22.0-35.0); MEAN CELL VOLUME 79.5 fl (80.0-105.0); MEAN CORPUSCULAR HEMOGLOBIN 25.3 pg (25.0-35.0); MEAN CORPUSCULAR HGB CONC 31.8 g/dl (31.0-37.0); MONO # 0.5 (0.1-0.6); MONO % 6.2 % (1.0-6.0); RBC 3.8 10^6/uL (3.5-6.1); RED CELL DISTRIBUTION WIDTH 17.9 % (11.5-14.5); WHITE BLOOD COUNT 8.8 10^3/ul (4.5-11.0)
[2018-05-11 07:06] LABS: INR 1.17; PROTHROMBIN TIME 13.5 SECONDS (9.4-12.5)
[2018-05-11 07:09] LABS: PARTIAL THROMBOPLASTIN TIME 80.5 Seconds (25.1-36.5)
[2018-05-11 07:14] LABS: ALBUMIN 4.1 g/dL (3.0-4.8); CALCIUM 9.4 mg/dL (8.4-10.5)
--- NOTE | 2018-05-11 07:59 | CP.PCM.PN ---
Subjective - Date & Time of Evaluation Date of Evaluation: 05/11/18 Time of Evaluation: 06:40 - Subjective Subjective: no distress,easily awaken,denies chest pain, denies shortness of breath Reason for consultation:Cardiac evaluation for shortness of breath,history of hypertension, congestive heart failure,hypothyroidism, diabetes,PPM Seen and examined by me and Dr. Puentes Objective - Vital Signs/Intake and Output Vital Signs (last 24 hours): Temp Pulse Resp BP Pulse Ox 98.1 F 63 18 101/64 99 05/10/18 17:57 05/10/18 17:57 05/10/18 17:57 05/10/18 17:57 05/10/18 17:57 Intake and Output: 05/11/18 05/11/18 06:59 18:59 Intake Total 370 Output Total 1 Balance 369 - Medications Medications: Current Medications Acetaminophen (Tylenol 325mg Tab) 650 mg PO Q4 PRN PRN Reason: Fever >100.4 F Last Admin: 05/11/18 03:03 Dose: 650 mg Atorvastatin Calcium (Lipitor) 10 mg PO DIN [facility] Last Admin: 05/10/18 17:12 Dose: 10 mg Donepezil HCl (Aricept) 5 mg PO HS [facility] Last Admin: 05/10/18 21:14 Dose: 5 mg Famotidine (Pepcid) 20 mg PO 2200 [facility] Last Admin: 05/10/18 21:14 Dose: 20 mg Furosemide (Lasix) 40 mg IVP DAILY [facility] Last Admin: 05/10/18 09:53 Dose: 40 mg Heparin Sodium/Sodium Chloride (Heparin 46017 Units/250ml 1/2 Normal Saline) 25 ,000 units in 250 mls @ 15.968 mls/hr IV .[id number] NAVYA; 24.43 UNITS/KG/HR PRN Reason: Protocol Last Admin: 05/11/18 05:15 Dose: 19.43 units/kg/hr, 12.7 mls/hr Lamotrigine (Lamictal) 100 mg PO BID [facility] PRN Reason: Protocol Last Admin: 05/10/18 17:13 Dose: 100 mg Levalbuterol HCl (Xopenex) 0.63 mg IH [id number] PRN PRN Reason: Shortness of Breath Lorazepam (Ativan) 1 mg IVP Q6H PRN; Protocol PRN Reason: Anxiety Last Admin: 05/11/18 03:04 Dose: 1 mg Losartan Potassium (Cozaar) 25 mg PO DAILY [facility] Last Admin: 05/10/18 09:53 Dose: 25 mg Metoprolol Tartrate (Lopressor) 25 mg PO BID [facility] Last Admin: 05/10/18 17:12 Dose: 25 mg Mirtazapine (Remeron) 15 mg PO DAILY [facility] Last Admin: 05/10/18 09:53 Dose: 15 mg Potassium Chloride (K-Dur 20 Meq Er Tab) 20 meq PO DAILY [facility] Last Admin: 05/10/18 09:52 Dose: 20 meq Warfarin Sodium (Coumadin) 5 mg PO 1800 [facility] PRN Reason: Protocol Last Admin: 05/10/18 17:11 Dose: 5 mg - Labs Labs: 05/11/18 06:20 05/11/18 06:20 PT 13.5 SECONDS (9.4-12.5) H 05/11/18 06:20 INR 1.17 05/11/18 06:20 APTT 80.5 Seconds (25.1-36.5) H 05/11/18 06:20 - Constitutional Appears: No Acute Distress - Eye Exam Eye Exam: Normal appearance - ENT Exam ENT Exam: Mucous Membranes Moist - Respiratory Exam Respiratory Exam: Decreased Breath Sounds, NORMAL BREATHING PATTERN - Cardiovascular Exam Cardiovascular Exam: +S1, +S2 Additional comments: PPM - GI/Abdominal Exam GI & Abdominal Exam: Soft, Normal Bowel Sounds - Extremities Exam Extremities Exam: Normal Capillary Refill - Neurological Exam Neurological Exam: Alert, Awake, Oriented x3 - Psychiatric Exam Psychiatric exam: Normal Affect - Skin Skin Exam: Warm Assessment and Plan - Assessment and Plan (Free Text) Assessment: An 87 year old female who came in to the ER due to shortness of breath. She was sent by her PMD due to worsening shortness of breath. History of hypertension, status post AVR/MVR ( can not remember date.) PPM,on coumadin, chronic congestive heart failure,hypothyroidism, diabetes mellitus, former smoker, history of seizures, gastric bypass,right hip surgery. Recently found to have left renal renal mass being followed up by Dr. Walter. For possible renal biopsy on Tuesday. Coumadin held and started on Heparin drip.Acute decompensated systolic dysfunction congestive heart failure. Post renal biopsy Plan: Had episode of confusion and agitation,combative,yesterday, Neuro consult Restarted Coumadin yesterday, once INR therapeutic will discontinue Heparin drip Stable heart rate and blood pressure On Lipitor 10 mg daily,Lasix 40 mg daily,Losartan 25 mg daily Lopressor 25 mg BID, Kdur 20 meq daily. Renal mass work up in progress Continue current treatment Continue current medications Discharge planning Will follow up Plan and treatment discussed with Dr. Puentes
[2018-05-11] MEDS ORDERED: Thiamine 500 MG in Sodium Chloride 0.9% 100 ML IV ONE (10:15)
--- NOTE | 2018-05-11 10:33 | CT ---
Date of service: 05/11/2018 PROCEDURE: CT HEAD WITHOUT CONTRAST. HISTORY: confusion COMPARISON: None available. TECHNIQUE: Axial computed tomography images were obtained through the head/brain without intravenous contrast. Radiation dose: Total exam DLP = 848 mGy-cm. This CT exam was performed using one or more of the following dose reduction techniques: Automated exposure control, adjustment of the mA and/or kV according to patient size, and/or use of iterative reconstruction technique. FINDINGS: HEMORRHAGE: No intracranial hemorrhage. BRAIN: No mass effect or edema. No atrophy or chronic microvascular ischemic changes. VENTRICLES: Unremarkable. No hydrocephalus. CALVARIUM: Unremarkable. PARANASAL SINUSES: Unremarkable as visualized. No significant inflammatory changes. MASTOID AIR CELLS: Unremarkable as visualized. No inflammatory changes. OTHER FINDINGS: None. IMPRESSION: No acute findings
[2018-05-11] MEDS: Potassium Chloride 20 mEq ER Tab PO SCH ×2 (12:53→17:07)
[2018-05-11 17:32] LABS: MEAN CELL VOLUME 80.8 fl (80.0-105.0); MEAN CORPUSCULAR HGB CONC 32.2 g/dl (31.0-37.0); RBC 3.85 10^6/uL (3.5-6.1); RED CELL DISTRIBUTION WIDTH 17.9 % (11.5-14.5); WHITE BLOOD COUNT 8.1 10^3/ul (4.5-11.0)
--- NOTE | 2018-05-11 17:42 | CON ---
Copied To: Jaycob Becerra MD Attending MD: Jaycob Becerra MD DATE: 05/11/2018 NEUROLOGY CONSULTATION CHIEF COMPLAINT: Altered mental status. HISTORY OF PRESENT ILLNESS: This is an 87-year-old woman with past medical history of hypertension, CHF, hypothyroidism, pacemaker placement, type 2 diabetes mellitus, history of aortic valve and mitral valve replacement, on Coumadin, history of gastric bypass, came in for shortness of breath, found to have acute decompensated systolic and diastolic CHF, came in with left flank pain, found to have left renal mass, status post biopsy, was consulted for acute onset of agitation, confusion, received Geodon. Patient appears anxious, but does follow simple commands. CT scan of the head showed no acute intracranial abnormalities. No evidence of any metastasis. Cardiology is on board for underlying CHF. At this time, acute delirium given her underlying medical conditions. Agreed with psychiatrist's input. PAST MEDICAL HISTORY: As above. SOCIAL HISTORY: No illicit drug use, smoking, or EtOH abuse. ALLERGIES: ASPIRIN, PENICILLIN, AND FISH. REVIEW OF SYSTEMS: Fourteen-point review of systems negative except as per the HPI. MEDICATIONS: Reviewed by nurse per reconciliation sheet. FAMILY HISTORY: Noncontributory. LABORATORY DATA: Sodium is 143, potassium 4.9, chloride 109, carbon dioxide 23. BUN of 33, creatinine 2.1. Random glucose 101. PHYSICAL EXAMINATION: VITAL SIGNS: Temperature afebrile, pulse rate 68, blood pressure 108/51, respiratory rate 18, and oxygen saturation 99% on room air. GENERAL: The patient is sitting up in bed, in no acute distress. HEENT: Head is atraumatic, normocephalic. PERRLA. Extraocular muscles intact. NECK: Supple. No JVD. No adenopathy noted. LUNGS: Decreased breath sounds bilaterally. HEART: S1, S2. Regular rate and rhythm. No murmurs, rubs, or gallops. ABDOMEN: Soft, nontender, and nondistended. Bowel sounds are present. There is a possible left flank mass. EXTREMITIES: Trace pedal edema. Peripheral pulses 2+ felt bilaterally. NEUROLOGIC: The patient is alert, oriented to person and place, not much for month and year. Recall after 5 minutes is 1/3. Poor attention span and slow thought process. She is agitated and anxious. Speech is hypophonic. No aphasia noted. Motor: Moves all extremities equally. Cranial nerves II through XII intact. Increased tone throughout. No pronator drift seen. Toes are downgoing bilaterally. Sensory: Decreased light touch and pinprick up to the calves bilaterally. Decreased vibration of the toes. DTRs are 2+ throughout and 1 at both knees and absent at the ankles. Coordination to [id number] intact. No dysmetria noted. ASSESSMENT AND PLAN: This is an 87-year-old woman with past medical history of congestive heart failure, hypertension, hypothyroidism, coronary artery disease, osteoarthritis, status post aortic valve replacement, mitral valve replacement, diabetic cardiomyopathy, former smoker, who presented with increased weakness, shortness of breath, acute decompensated systolic/diastolic congestive heart failure exacerbation, found to have left renal mass and status post CT-guided biopsy, results are pending, was consulted for acute change in mental status. The patient is agitated and confused, but it is transient. Currently, she is doing much better, following simple commands, moving all extremities. She gets frequently agitated. At this time, she has acute delirium secondary to underlying chronic medical problems along with transient cerebral hypoperfusion from low systolic and diastolic blood pressure from decompensated cardiomyopathy causing low flow to the brain and causing the acute delirium. At this time, we recommend; 1. Keep her systolic blood pressure between 130s to 140s systolic and diastolic 70s to 80s. 2. Gentle hydration advised. 3. Frequent orientation throughout the day and avoid nighttime interruptions. Delirium precautions in place. 4. Lamictal 100 mg p.o. b.i.d. for underlying history of questionable seizure as well as psychiatric and Ativan p.r.n 1 mg for acute onset of delirium. 5. Risperidone 0.25 mg p.o. b.i.d. and Geodon p.r.n. per Psychiatry and agree with. 6. Avoid sedative meds frequently and monitor electrolytes and out of bed to chair. Continue with current present medical management. Thank you for this consult. Jayocb Becerra MD
--- NOTE | 2018-05-11 18:01 | PN ---
DATE: 05/11/2018 SUBJECTIVE: The patient is 87 years old, not agitated, was pulling things, was screaming, was given dose of Ativan, and sent for CT scan of the brain because of her altered mental status. PHYSICAL EXAMINATION: GENERAL: She seems to be comfortable and calm now. VITAL SIGNS: She afebrile, pulse 63, respirations 18, and blood pressure 101/64. LUNGS: Bilateral fair airflow. No rhonchi or crackle. HEART: S1 and S2 audible. ABDOMEN: Soft, nontender. No rebound, no guarding. NEUROLOGIC: She is awake and alert, but confused, disoriented, and forgetful. LABORATORY EXAM: WBC is 8.8, hemoglobin 9.6, hematocrit 30.2, and platelets of 357. PT 13.7, INR 1.17, PTT is 80.5. Chemistry: Sodium 143, potassium 4.9, chloride 109, CO2 of 23. BUN 33, creatinine 2.1. Her blood sugar is 101. CT scan of the head is done that is unremarkable. ASSESSMENT: 1. Altered mental status probably secondary to effect of anesthesia. 2. Left renal mass. 3. Congestive heart failure. 4. Hypertension. 5. History of aortic and mitral valve replacement. 6. History of seizure disorder. PLAN: The patient is currently on Coumadin and heparin. We will give her dose of Risperdal. We will follow up PT and PTT in the a.m. Once she is therapeutic, we will discontinue heparin. Charito Dale MD
--- NOTE | 2018-05-11 21:21 | CP.PCM.PN ---
Subjective - Date & Time of Evaluation Date of Evaluation: 05/11/18 Time of Evaluation: 21:16 - Subjective Subjective: Tejal Smith, PGY2, Heme-Onc Progress Note for Dr Walter: Patient seen and examined at bedside. No acute events overnight. This AM, patient remains drowsy, confused, lethargic. responds mildly to verbal stimuli, oriented to self only. No bleeding noted as per nursing staff. ROS unobtainable due to patient's mental status. Objective - Vital Signs/Intake and Output Vital Signs (last 24 hours): Temp Pulse Resp BP Pulse Ox 98.1 F 100 H 20 110/53 L 99 05/11/18 18:00 05/11/18 18:00 05/11/18 18:00 05/11/18 18:00 05/11/18 18:00 Intake and Output: 05/11/18 05/12/18 18:59 06:59 Intake Total 100 Balance 100 - Medications Medications: Current Medications Acetaminophen (Tylenol 325mg Tab) 650 mg PO Q4 PRN PRN Reason: Fever >100.4 F Last Admin: 05/11/18 03:03 Dose: 650 mg Atorvastatin Calcium (Lipitor) 10 mg PO DIN [facility] Last Admin: 05/11/18 17:06 Dose: 10 mg Donepezil HCl (Aricept) 5 mg PO HS [facility] Last Admin: 05/11/18 21:11 Dose: 5 mg Famotidine (Pepcid) 20 mg PO 2200 [facility] Last Admin: 05/11/18 21:11 Dose: 20 mg Furosemide (Lasix) 40 mg IVP DAILY [facility] Last Admin: 05/11/18 12:55 Dose: 40 mg Heparin Sodium/Sodium Chloride (Heparin 90676 Units/250ml 1/2 Normal Saline) 25 ,000 units in 250 mls @ 15.968 mls/hr IV .[id number] [facility]; 24.43 UNITS/KG/HR PRN Reason: Protocol Last Admin: 05/11/18 05:15 Dose: 19.43 units/kg/hr, 12.7 mls/hr Lamotrigine (Lamictal) 100 mg PO BID [facility] PRN Reason: Protocol Last Admin: 05/11/18 17:06 Dose: 100 mg Levalbuterol HCl (Xopenex) 0.63 mg IH [id number] PRN PRN Reason: Shortness of Breath Lorazepam (Ativan) 1 mg IVP Q6H PRN; Protocol PRN Reason: Anxiety Last Admin: 05/11/18 03:04 Dose: 1 mg Losartan Potassium (Cozaar) 25 mg PO DAILY [facility] Last Admin: 05/11/18 12:55 Dose: Not Given Metoprolol Tartrate (Lopressor) 25 mg PO BID [facility] Last Admin: 05/11/18 17:06 Dose: 25 mg Mirtazapine (Remeron) 15 mg PO HS PRN PRN Reason: Insomnia Potassium Chloride (K-Dur 20 Meq Er Tab) 20 meq PO DAILY [facility] Last Admin: 05/11/18 17:07 Dose: 20 meq Risperidone (Risperdal Tab) 0.25 mg PO BID [facility] PRN Reason: Protocol Last Admin: 05/11/18 17:07 Dose: 0.25 mg Warfarin Sodium (Coumadin) 10 mg PO 1800 [facility] PRN Reason: Protocol Last Admin: 05/11/18 17:05 Dose: 10 mg Ziprasidone (Geodon Inj) 10 mg IM Q8H PRN; Protocol PRN Reason: severe agitaiton/psychosis - Labs Labs: 05/11/18 17:29 05/11/18 06:20 PT 13.5 SECONDS (9.4-12.5) H 05/11/18 06:20 INR 1.17 05/11/18 06:20 APTT 80.5 Seconds (25.1-36.5) H 05/11/18 06:20 - Constitutional Appears: Older Than Stated Age, Confused, Chronically Ill - Head Exam Head Exam: ATRAUMATIC, NORMOCEPHALIC - Eye Exam Eye Exam: EOMI, PERRL. absent: Conjunctival injection, Nystagmus, Scleral icterus Pupil Exam: NORMAL ACCOMODATION, PERRL. absent: Irregular, Miosis, Mydriatic, Unequal - ENT Exam ENT Exam: Mucous Membranes Moist - Neck Exam Neck Exam: Full ROM - Respiratory Exam Respiratory Exam: Clear to Ausculation Bilateral, NORMAL BREATHING PATTERN. absent: Chest Wall Tenderness, Rales, Rhonchi, Respiratory Distress, Stridor - Cardiovascular Exam Cardiovascular Exam: RRR, +S1, +S2. absent: Murmur - GI/Abdominal Exam GI & Abdominal Exam: Soft, Normal Bowel Sounds. absent: Guarding, Rigid, Tenderness, Organomegaly, Rebound - Extremities Exam Extremities Exam: Normal Inspection. absent: Calf Tenderness, Pedal Edema - Neurological Exam Neurological Exam: Altered - Skin Skin Exam: Dry, Normal Color, Warm Assessment and Plan - Assessment and Plan (Free Text) Assessment: 87 year old female with PMH seizure disorder on Lamictal, CHF, HTN, hypothyroidism, CAD, OA, s/p aortic valve replacement, diabetic cardiomyopathy, former smoker, presents for increasing weakness, sob, admitted for CHF exacerbation. Oncology consulted for left renal mass, s/p CT guided renal biopsy , awaiting pathology results. Patient however has become confused, agitated post procedure. CT head stat order placed, which was negative. Call placed out to Neurology for EEG/seizure workup: - Neurology and Psych consulted. appreciate recs. - s/p biopsy. F/u results. - Will need tissue diagnosis before initiation/recommendation of any therapy - On heparin drip. INR subtherapeutic today. Increased coumadin to 10 mg daily. F/u daily INR. - Cardio consult appreciated. Case seen and discussed with Dr Walter.
--- NOTE | 2018-05-11 23:54 | CON ---
Copied To: Mya Stewart MD Attending MD: Mya Stewart MD DATE: 05/11/2018 HISTORY OF PRESENT ILLNESS: Shortly, the patient is an 87-year-old female with multiple medical issues including pacemaker, CHF, hypertension, diabetes, hypothyroidism. The patient was admitted on the medical site for shortness of breath. Psych consult was called because the patient was agitated and agitation most likely related to delirium stage. The patient is currently in overnight. The patient was medicated with Geodon. As per nursing staff, the patient was very sedated and not arousable. This film writer attempted to speak to the patient, but the patient seems to be in deep sleep but was able to talk to this film writer through her sleep. The patient [place] and she [place] and when the patient was asked how that she feels, she was keep repeating that she is peeing. Besides that, no meaningful conversation possible. VITAL SIGNS: This film writer reviewed vital signs. Vital signs seems to be stable but blood pressure is mildly low 108/51, respiration is 18, temperature 98.1, saturation is 99. MEDICATIONS: Reviewed. Tylenol, Lipitor, Aricept, Pepcid, Lasix, heparin, Lamictal 100 mg twice a day, Xopenex, Ativan 1 mg IV push every 6 hours p.r.n. for anxiety, last time was given today at the morning time. The patient is on Cozaar, Lopressor, Remeron will be scheduled at the nighttime, but it will be p.r.n. for insomnia. Risperdal was started by medical team, 0.5 mg twice a day, this film writer agree with that. Geodon will be given as 10 mg three times a day as needed only for severe agitation. Reports reviewed. The patient had CT scan done today, awaiting for result to be back. MENTAL STATUS EXAMINATION: As described above, the patient is sedated but was able to talk. The patient does not know where she is. She feels that she [place]. The patient was repeated that she is peeing right now, very confused and lethargic. Insight and judgment seems to be impaired. Impulses are unpredictable. IMPRESSION: Most likely the patient is in delirium stage. Moreover, the patient most likely has dementia, but this film writer is not sure. PLAN: Geodon was started only as needed for agitation, Geodon is only dose dependent. QTC prolongation, but we will monitor EKG. Remeron will be given only for insomnia and it was switched at the nighttime. Risperdal was given by primary care physician, I agree with that. We will monitor further. Ativan will be given only as needed but be aware that Ativan could give worsening of delirium. We will advise and follow up. Thank you very much for letting me participate in care of your patient. Should you have any questions, give me a call back. Mya Stewart MD
[2018-05-12 07:08] LABS: BASO # 0.03 K/mm3 (0.0-2.0); BASO % 0.3 % (0.0-3.0); EOS # 0.4 (0.0-0.7); EOS % 3.7 % (1.5-5.0); GRAN # 6.32 (1.4-6.5); HEMOGLOBIN 9.8 g/dL (12.0-16.0); LYMPH # 2.5 (1.2-3.4); LYMPH % 25.7 % (22.0-35.0); MEAN CELL VOLUME 79.3 fl (80.0-105.0); MEAN CORPUSCULAR HGB CONC 31.5 g/dl (31.0-37.0); MEAN PLATELET VOLUME 9.4 fl (7.0-11.0); MONO # 0.6 (0.1-0.6); MONO % 6.3 % (1.0-6.0); RBC 3.92 10^6/uL (3.5-6.1); WHITE BLOOD COUNT 9.9 10^3/ul (4.5-11.0)
[2018-05-12 07:16] LABS: ALB/GLOB RATIO 0.9 (1.1-1.8); ALBUMIN 4.5 g/dL (3.0-4.8); CALCIUM 9.6 mg/dL (8.4-10.5)
[2018-05-12 07:18] LABS: INR 1.3
[2018-05-12 07:20] LABS: PARTIAL THROMBOPLASTIN TIME 76.4 Seconds (25.1-36.5)
--- NOTE | 2018-05-12 07:52 | CP.PCM.PN ---
Subjective - Date & Time of Evaluation Date of Evaluation: 05/12/18 Time of Evaluation: 06:40 - Subjective Subjective: awake, no distress,denies chest pain, denies shortness of breath Reason for consultation:Cardiac evaluation for shortness of breath,history of hypertension, congestive heart failure,hypothyroidism, diabetes,PPM Seen and examined by me and Dr. Puentes Objective - Vital Signs/Intake and Output Vital Signs (last 24 hours): Temp Pulse Resp BP Pulse Ox 98.1 F 100 H 20 110/53 L 99 05/11/18 18:00 05/11/18 18:00 05/11/18 18:00 05/11/18 18:00 05/11/18 18:00 Intake and Output: 05/12/18 05/12/18 06:59 18:59 Intake Total 100 Balance 100 - Medications Medications: Current Medications Acetaminophen (Tylenol 325mg Tab) 650 mg PO Q4 PRN PRN Reason: Fever >100.4 F Last Admin: 05/11/18 03:03 Dose: 650 mg Atorvastatin Calcium (Lipitor) 10 mg PO DIN [facility] Last Admin: 05/11/18 17:06 Dose: 10 mg Donepezil HCl (Aricept) 5 mg PO HS [facility] Last Admin: 05/11/18 21:11 Dose: 5 mg Famotidine (Pepcid) 20 mg PO 2200 [facility] Last Admin: 05/11/18 21:11 Dose: 20 mg Furosemide (Lasix) 40 mg IVP DAILY [facility] Last Admin: 05/11/18 12:55 Dose: 40 mg Heparin Sodium/Sodium Chloride (Heparin 59739 Units/250ml 1/2 Normal Saline) 25 ,000 units in 250 mls @ 15.968 mls/hr IV .[id number] [facility]; 24.43 UNITS/KG/HR PRN Reason: Protocol Last Admin: 05/11/18 05:15 Dose: 19.43 units/kg/hr, 12.7 mls/hr Lamotrigine (Lamictal) 100 mg PO BID [facility] PRN Reason: Protocol Last Admin: 05/11/18 17:06 Dose: 100 mg Levalbuterol HCl (Xopenex) 0.63 mg IH [id number] PRN PRN Reason: Shortness of Breath Lorazepam (Ativan) 1 mg IVP Q6H PRN; Protocol PRN Reason: Anxiety Last Admin: 05/11/18 22:07 Dose: 1 mg Losartan Potassium (Cozaar) 25 mg PO DAILY [facility] Last Admin: 05/11/18 12:55 Dose: Not Given Metoprolol Tartrate (Lopressor) 25 mg PO BID [facility] Last Admin: 05/11/18 17:06 Dose: 25 mg Mirtazapine (Remeron) 15 mg PO HS PRN PRN Reason: Insomnia Potassium Chloride (K-Dur 20 Meq Er Tab) 20 meq PO DAILY [facility] Last Admin: 05/11/18 17:07 Dose: 20 meq Risperidone (Risperdal Tab) 0.25 mg PO BID [facility] PRN Reason: Protocol Last Admin: 05/11/18 17:07 Dose: 0.25 mg Warfarin Sodium (Coumadin) 10 mg PO 1800 [facility] PRN Reason: Protocol Last Admin: 05/11/18 17:05 Dose: 10 mg Ziprasidone (Geodon Inj) 10 mg IM Q8H PRN; Protocol PRN Reason: severe agitaiton/psychosis - Labs Labs: 05/12/18 06:00 05/12/18 06:00 PT 15.0 SECONDS (9.4-12.5) H 05/12/18 06:00 INR 1.30 05/12/18 06:00 APTT 76.4 Seconds (25.1-36.5) H 05/12/18 06:00 - Constitutional Appears: No Acute Distress - Eye Exam Eye Exam: Normal appearance - ENT Exam ENT Exam: Mucous Membranes Moist - Respiratory Exam Respiratory Exam: Decreased Breath Sounds, NORMAL BREATHING PATTERN - Cardiovascular Exam Cardiovascular Exam: +S1, +S2 Additional comments: PPM - Extremities Exam Extremities Exam: Normal Capillary Refill - Neurological Exam Neurological Exam: Alert, Awake - Psychiatric Exam Psychiatric exam: Normal Affect - Skin Skin Exam: Dry, Warm Assessment and Plan - Assessment and Plan (Free Text) Assessment: An 87 year old female who came in to the ER due to shortness of breath. She was sent by her PMD due to worsening shortness of breath. History of hypertension, status post AVR/MVR ( can not remember date.) PPM,on coumadin, chronic congestive heart failure,hypothyroidism, diabetes mellitus, former smoker, history of seizures, gastric bypass,right hip surgery. Recently found to have left renal renal mass being followed up by Dr. Walter. For possible renal biopsy on Tuesday. Coumadin held and started on Heparin drip.Acute decompensated systolic dysfunction congestive heart failure. Post renal biopsy Plan: Periods of confusion, Neuro consult CT of head- normal Stable heart rate and blood pressure On Heparin drip Restarted Coumadin, once therapeutic will discontinue Heparin drip On Lipitor 10 mg daily,Lasix 40 mg daily,Losartan 25 mg daily Lopressor 25 mg BID, Kdur 20 meq daily. Continue current treatment Continue current medications Will follow up Plan and treatment discussed with Dr. Puentes
[2018-05-12 08:01] VITALS: O2SAT 94
[2018-05-12] MEDS ORDERED: Heparin25000 units/250ml 1/2NS 25,000 UNITS/250 ML BAG IV PRN (08:29)
[2018-05-12] MEDS: Potassium Chloride 20 mEq ER Tab PO SCH (09:29)
--- NOTE | 2018-05-12 10:05 | EEG ---
Copied To: Jaycob Becerra MD Attending MD: Jaycob Becerra MD DATE: 05/12/2018 CONDITION OF THIS RECORDING: Drowsy. DIAGNOSIS: Evaluation for altered mental status. MEDICATIONS: Reviewed by nurse's reconciliation sheet. INTERPRETATION: This is a 16-channel international recording. Background activity of this tracing was composed of 6-7 cycles per second. There was small amount of beta activity of 16-20 cycles per second seen in this recording. There was increased amount of theta activity of 5-7 cycles per second seen in this tracing. Drowsiness was characterized by mostly mixed beta and theta activities. Sleep was characterized by vertex transient waves, sleep spindles and bilateral slowing. Photic stimulation showed no changes in the tracing. No paroxysmal activities noted in this recording. CONCLUSION: This is an abnormal electroencephalogram due to presence of diffuse slowing throughout the recording consistent with moderate bilateral cerebral dysfunction. No evidence of any epileptiform activity. Please clinically correlate. Jaycob Becerra MD
[2018-05-12 11:45] LABS: BASO # 0.02 K/mm3 (0.0-2.0); BASO % 0.2 % (0.0-3.0); EOS # 0.4 (0.0-0.7); EOS % 3.8 % (1.5-5.0); GRAN # 6.19 (1.4-6.5); GRAN % 66.2 % (50.0-68.0); HEMOGLOBIN 9.4 g/dL (12.0-16.0); LYMPH # 2.2 (1.2-3.4); LYMPH % 23.2 % (22.0-35.0); MEAN CELL VOLUME 79.3 fl (80.0-105.0); MEAN CORPUSCULAR HEMOGLOBIN 25.3 pg (25.0-35.0); MEAN CORPUSCULAR HGB CONC 31.9 g/dl (31.0-37.0); MEAN PLATELET VOLUME 8.7 fl (7.0-11.0); MONO # 0.6 (0.1-0.6); MONO % 6.6 % (1.0-6.0); RBC 3.72 10^6/uL (3.5-6.1); RED CELL DISTRIBUTION WIDTH 17.8 % (11.5-14.5); WHITE BLOOD COUNT 9.4 10^3/ul (4.5-11.0)
[2018-05-12 11:52] LABS: INR 1.37; PROTHROMBIN TIME 15.8 SECONDS (9.4-12.5)
--- NOTE | 2018-05-12 12:24 | PN ---
Copied To: Mya Stewart MD Attending MD: Mya Stewart MD DATE: 05/12/2018 FOLLOWUP NOTE SUBJECTIVE: Shortly, the patient is 87-year-old female. The patient was admitted on the medical site for evaluation of shortness of breath. The patient is currently on delirium stage, COPD due to multiple medical issues including CHF exacerbation. The patient also was found to have left renal mass, status post biopsy. This investigative writer was involved into the patient's care because of altered mental status and periods of agitation and restless behavior. Initially, the patient was seen by this investigative writer yesterday. Please see initial consultation for more detailed information. This investigative writer is following on the patient today. The patient presented better to compare with yesterday. Yesterday, the patient was feeling [facility] and she complained that she is constantly peeing. Today, the patient was alert, ate with a good appetite. The patient knows that she is in the hospital. The patient reports that she feels better. The patient knows the year, but was off with months and date. The patient thinks that we are still in April and this is end of April, which is expected because the patient was in delirium stage and was very confused, but she is aware of the year, which is a huge improvement. Since the morning time, the patient does not have any agitation or aggression. No behavioral disturbances. Vital signs seems to be stable. Temperature 97.6, pulse is 78, blood pressure 111/58, respirations 19, oxygen saturation is 94. Medications reviewed. The patient is on Tylenol, Lipitor, Aricept, Pepcid, Lasix. The patient is on Lamictal 100 mg twice a day, Xopenex, Ativan 1 mg IV push every 6 hours p.r.n., the patient got only 2 mg so far and it was yesterday. The patient is on Remeron only as needed for insomnia. The patient did not require that yesterday. The patient was started on Risperdal 0.25 mg twice a day schedule, the patient took two doses already; Khurram, the patient did not require that. I think that this combination of the medications helping the patient so far. Labs reviewed. Most recent was from today. Hemoglobin 9.8, hematocrit 31.1. Coagulation is reviewed. Chemistry reviewed. Chloride 108, carbon dioxide 19, AST is 32, ALT 36. MENTAL STATUS EXAMINATION: The patient presented to be alert, oriented in place, self. Date, the patient was off with the month and date, but was aware of the year. The patient seems to be better to compare with yesterday. Fair eye contact. Speech was underproductive. The patient was able to answer for the questions. Mood described, I am fine, I want to go home. Affect was constricted. Thought process seems to be concrete as of now. Thought content, the patient does not have episodes of agitation or aggression. Most recent hallucinations were yesterday. The patient was feeling [place] and she is [place] and she is constantly peeing. No such behavior today. Insight and judgment seems to be improving, but still limited. Impulses are better controlled, but still unpredictable. IMPRESSION: The patient is in delirium stage due to multiple medical issues; new renal mass, status post biopsy. The patient's mental status is improving. PLAN: Continue current management. Continue current medication. Risperdal should be continued. Please monitor QTc. Ativan only as needed. Please be aware that it could be worsening the delirium stage. Remeron should be continued only as needed. Over the weekend, there is no need for the patient to be seen by Psychiatry. I hope that the patient will be improving. Meanwhile, call Dr. Rosario if the patient has acute change in mental status. Thank you very much for letting me participate in the care of your patient. Should you have any questions, give me a call back. Mya Stewart MD
--- NOTE | 2018-05-12 15:20 | CP.PCM.PN ---
Subjective - Date & Time of Evaluation Date of Evaluation: 05/12/18 Time of Evaluation: 15:13 - Subjective Subjective: Tejal Smith, PGY2, Heme-Onc Progress Note for Dr Walter: Patient seen and examined at bedside. Overnight, patient trying to climb oob, pulled out IV. Otherwise, remains sleepy. Patient oriented to self. On my exam, patient remains drowsy, lethargic. Patient currently undergoing neurologic evaluation for new onset of confusion, EEG done, pending read. Head CT neg. ROS unobtainable due to patient's mental status. Objective - Vital Signs/Intake and Output Vital Signs (last 24 hours): Temp Pulse Resp BP Pulse Ox 97.6 F 78 19 111/58 L 94 L 05/12/18 08:00 05/12/18 09:33 05/12/18 08:00 05/12/18 09:33 05/12/18 08:00 Intake and Output: 05/12/18 05/12/18 06:59 18:59 Intake Total 100 Balance 100 - Medications Medications: Current Medications Acetaminophen (Tylenol 325mg Tab) 650 mg PO Q4 PRN PRN Reason: Fever >100.4 F Last Admin: 05/11/18 03:03 Dose: 650 mg Atorvastatin Calcium (Lipitor) 10 mg PO DIN [facility] Last Admin: 05/11/18 17:06 Dose: 10 mg Donepezil HCl (Aricept) 5 mg PO HS [facility] Last Admin: 05/11/18 21:11 Dose: 5 mg Famotidine (Pepcid) 20 mg PO 2200 [facility] Last Admin: 05/11/18 21:11 Dose: 20 mg Furosemide (Lasix) 40 mg IVP DAILY [facility] Last Admin: 05/12/18 09:30 Dose: 40 mg Heparin Sodium/Sodium Chloride (Heparin 96962 Units/250ml 1/2 Normal Saline) 25 ,000 units in 250 mls @ 15.968 mls/hr IV .[id number] PRN; Protocol; 24.43 UNITS/KG/ HR PRN Reason: titrate per protocol Last Admin: 05/12/18 08:33 Dose: 19.42 units/kg/hr, 12.7 mls/hr Lamotrigine (Lamictal) 100 mg PO BID [facility] PRN Reason: Protocol Last Admin: 05/12/18 09:29 Dose: 100 mg Levalbuterol HCl (Xopenex) 0.63 mg IH [id number] PRN PRN Reason: Shortness of Breath Lorazepam (Ativan) 1 mg IVP Q6H PRN; Protocol PRN Reason: Anxiety Last Admin: 05/11/18 22:07 Dose: 1 mg Losartan Potassium (Cozaar) 25 mg PO DAILY [facility] Last Admin: 05/12/18 09:33 Dose: 25 mg Metoprolol Tartrate (Lopressor) 25 mg PO BID [facility] Last Admin: 05/12/18 09:32 Dose: 25 mg Mirtazapine (Remeron) 15 mg PO HS PRN PRN Reason: Insomnia Potassium Chloride (K-Dur 20 Meq Er Tab) 20 meq PO DAILY [facility] Last Admin: 05/12/18 09:29 Dose: 20 meq Risperidone (Risperdal Tab) 0.25 mg PO BID [facility] PRN Reason: Protocol Last Admin: 05/12/18 09:32 Dose: 0.25 mg Warfarin Sodium (Coumadin) 10 mg PO 1800 [facility] PRN Reason: Protocol Last Admin: 05/11/18 17:05 Dose: 10 mg Ziprasidone (Geodon Inj) 10 mg IM Q8H PRN; Protocol PRN Reason: severe agitaiton/psychosis - Labs Labs: 05/12/18 11:30 05/12/18 06:00 PT 15.8 SECONDS (9.4-12.5) H 05/12/18 11:30 INR 1.37 05/12/18 11:30 APTT 91.0 Seconds (25.1-36.5) H 05/12/18 11:30 - Additional Findings Additional findings: - Constitutional Appears: Older Than Stated Age, Confused, Chronically Ill - Head Exam Head Exam: ATRAUMATIC, NORMOCEPHALIC - Eye Exam Eye Exam: EOMI, PERRL. absent: Conjunctival injection, Nystagmus, Scleral icterus Pupil Exam: NORMAL ACCOMODATION, PERRL. absent: Irregular, Miosis, Mydriatic, Unequal - ENT Exam ENT Exam: Mucous Membranes Moist - Neck Exam Neck Exam: Full ROM - Respiratory Exam Respiratory Exam: Clear to Ausculation Bilateral, NORMAL BREATHING PATTERN. absent: Chest Wall Tenderness, Rales, Rhonchi, Respiratory Distress, Stridor - Cardiovascular Exam Cardiovascular Exam: RRR, +S1, +S2. absent: Murmur - GI/Abdominal Exam GI & Abdominal Exam: Soft, Normal Bowel Sounds. absent: Guarding, Rigid, Tenderness, Organomegaly, Rebound - Extremities Exam Extremities Exam: Normal Inspection. absent: Calf Tenderness, Pedal Edema - Neurological Exam Neurological Exam: Altered - Skin Skin Exam: Dry, Normal Color, Warm Assessment and Plan - Assessment and Plan (Free Text) Assessment: 87 year old female with PMH seizure disorder on Lamictal, CHF, HTN, hypothyroidism, CAD, OA, s/p aortic valve replacement, diabetic cardiomyopathy, former smoker, presents for increasing weakness, sob, admitted for CHF exacerbation. Oncology consulted for left renal mass, s/p CT guided renal biopsy , awaiting pathology results. Patient however has become confused, agitated post procedure, currently undergoing neurology workup, head CT neg, EEG done ( pending read), neurology following: - Neurology and Psych consulted. appreciate recs. - s/p biopsy. F/u results. - Will need tissue diagnosis before initiation/recommendation of any therapy - On heparin drip. INR subtherapeutic today. Continue with coumadin at 10 mg daily. F/u daily INR. - Cardio consult appreciated. Case seen and discussed with Dr Walter.
[2018-05-12 17:53] VITALS: BP 118/61
[2018-05-12 18:19] VITALS: PULSE 64; RESP 20; TEMP 98.1
[2018-05-12 18:55] LABS: INR 1.39
[2018-05-12 18:58] LABS: PARTIAL THROMBOPLASTIN TIME 87.6 Seconds (25.1-36.5)
--- NOTE | 2018-05-13 07:15 | DS ---
Copied To: Charito Dale MD Attending MD: Charito Dale MD HISTORY OF PRESENT ILLNESS: The patient is 87 years old, came in with shortness of breath, was in CHF, was diuresed and underwent conscious sedation. Renal mass biopsy done. Patient became confused, delusional, disoriented and restless, was given Ativan, Geodon, but felt better with Risperdal. PHYSICAL EXAMINATION: GENERAL: Today on examination, she is awake, alert, oriented, communicative. VITAL SIGNS: She is afebrile, pulse 70, respirations 19, blood pressure 111/58. LUNGS: Bilateral fair airflow. No rhonchi or crackle. HEART: S1 and S2 audible. ABDOMEN: Soft, nontender. No rebound. No guarding. NEUROLOGICAL: Patient is awake, alert and oriented, able to answer simple question. EXTREMITIES: Bilateral leg, no edema. LABORATORY EXAM: WBC 9.4, hemoglobin 9.4, hematocrit 29.5, platelet 366. PT 15.8, INR 1.37. PTT is 91. Chemistry: Sodium 142, potassium 4.9, chloride 108, CO2 of 19, BUN 32, creatinine 2.1. Blood sugar is 111. Alk phos is 309. ASSESSMENT: 1. Metabolic encephalopathy. 2. Altered mental status probably effect of anesthesia. 3. Hypertension. 4. Hyperlipidemia. 5. Renal mass. 6. Congestive heart failure improved. 7. Coronary artery disease, status post angioplasty. 8. Status post aortic and mitral valve replacement. PLAN: Patient is currently on Coumadin. She will be given Coumadin 10 mg today. Continue heparin until she is therapeutic. We will follow up PT/INR in a.m. and patient is being discharged to TCU where she will be monitored for PT/INR and will receive physical therapy. Charito Dale MD
--- NOTE | 2018-05-23 19:03 | PQF ---
PROVIDER RESPONSE TEXT: Post procedure confusion secondary to anesthesia,most probably metabolic encephalopathy REVIEWER QUERY TEXT: Clarification of Clinical Diagnostic Findings Please clarify documentation or clinical relevance for the clinical / diagnostic findings or whether those are insignificant or unable to be further specified. The patient's Clinical Indicators include: Metabolic encephalopathy is documented on your discharge summary but not elsewhwere. Altered mental s tatus secondary to anesthesia is also documented on your summary. Please clarify which one is to be c leeann, or whether both are to be coded. Thank you. Query created by: Melinda Wilks on 05/15/2018 9:04 AM Electronically signed by: Charito Dale MD 05/23/2018 6:59 PM
== END 2018-05-12 20:29 | DRG 291 ==
LOC: ED 14:00 → ERH 16:42 → 2RSO 21:04 → 3RSO 05-10 13:07
PROVIDERS: ADMIT Internal Medicine; ATTEND Internal Medicine
PROC: 0TB13ZX Excision of Left Kidney, Percutaneous Approach, Diagnostic (ICD-10-PCS; principal; 2018-05-10)
DX: I11.0 Hypertensive heart disease with heart failure (principal); G93.41 Metabolic encephalopathy; C64.2 Malignant neoplasm of left kidney, except renal pelvis; I50.42 Chronic combined systolic (congestive) and diastolic (congestive) heart failure; E03.9 Hypothyroidism, unspecified; E11.9 Type 2 diabetes mellitus without complications; E78.5 Hyperlipidemia, unspecified; F03.90 Unspecified dementia, unspecified severity, without behavioral disturbance, psychotic disturbance, mood disturbance, and anxiety; G40.909 Epilepsy, unspecified, not intractable, without status epilepticus; I25.10 Atherosclerotic heart disease of native coronary artery without angina pectoris; I42.9 Cardiomyopathy, unspecified; I48.91 Unspecified atrial fibrillation; J44.9 Chronic obstructive pulmonary disease, unspecified; M15.9 Polyosteoarthritis, unspecified; Z78.1 Physical restraint status; Z79.01 Long term (current) use of anticoagulants; Z79.899 Other long term (current) drug therapy; Z87.891 Personal history of nicotine dependence; Z95.0 Presence of cardiac pacemaker; Z95.2 Presence of prosthetic heart valve; Z98.61 Coronary angioplasty status; Z98.84 Bariatric surgery status; Z88.0 Allergy status to penicillin; R41.82 Altered mental status, unspecified; T41.45XA Adverse effect of unspecified anesthetic, initial encounter

== ENCOUNTER 2018-05-12 20:04 | Inpatient (IN) | payer OTHER, MEDICARE ==
[2018-05-12 21:08] VITALS: BMI 21.7
[2018-05-12] MEDS ORDERED: Levalbuterol 0.63 MG/3 ML Inhal Soln UD IH PRN (21:22)
[2018-05-12] MEDS ORDERED: Pneumococcal 23-Valent Vaccine IM ONE (21:41)
[2018-05-13 06:12] LABS: PH,URINE 6.5 (4.7-8.0); URINE BILIRUBIN NEGATIVE (NEGATIVE); URINE BLOOD NEGATIVE (NEGATIVE); URINE GLUCOSE (UA) NEGATIVE (NEGATIVE); URINE LEUKOCYTE ESTERASE LARGE Leu/uL (NEGATIVE); URINE PROTEIN NEGATIVE mg/dL (<30 mg/dL); URINE UROBILINOGEN 0.2 E.U./dL (<1 E.U./dL)
[2018-05-13 06:33] LABS: URINE APPEARANCE SL CLOUDY (CLEAR); URINE COLOR YELLOW (YELLOW)
[2018-05-13 06:34] LABS: URINE RBC 0 - 2 /hpf (0-2)
[2018-05-13 06:35] LABS: URINE BACTERIA MANY (NEG); URINE EPITHELIAL CELLS 0 - 2 /hpf (0-5); URINE WBC 15 - 20 /hpf (0-6)
[2018-05-13] MEDS: Heparin25000 units/250ml 1/2NS 25,000 UNITS/250 ML BAG IV PRN (07:20)
[2018-05-13 08:07] LABS: INR 1.53; PROTHROMBIN TIME 17.7 SECONDS (9.4-12.5)
[2018-05-13 08:09] LABS: PARTIAL THROMBOPLASTIN TIME 79.7 Seconds (25.1-36.5)
[2018-05-13] MEDS: Potassium Chloride 20 mEq ER Tab PO SCH (10:29)
[2018-05-13 14:15] LABS: INR 1.62; PROTHROMBIN TIME 18.7 SECONDS (9.4-12.5)
[2018-05-13 14:18] LABS: PARTIAL THROMBOPLASTIN TIME 79.6 Seconds (25.1-36.5)
--- NOTE | 2018-05-13 17:10 | HP ---
Copied To: Charito Dale MD Attending MD: Charito Dale MD HISTORY OF PRESENT ILLNESS: The patient is an 87-year-old who was initially admitted with shortness of breath. She was diuresed. She also has a history of aortic and mitral valve replacements, so she was on Coumadin, she was bridged with Lovenox and prepped for biopsy that she underwent on 05/08. 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 PAST MEDICAL HISTORY: Significant for: 1. Hypertension. 2. Coronary artery disease. 3. Status post pacemaker. 4. Status post aortic and mitral valve replacements. 5. Recently found left renal mass, had biopsy done. ALLERGIES: SHE IS ALLERGIC TO ASPIRIN, PENICILLIN, AND FISH. MEDICATIONS AT HOME: She is on: 1. Nexium 40 mg daily. 2. Aricept 5 mg daily. 3. Lamictal 100 mg twice a day. 4. Coumadin 6 mg daily. 5. Simvastatin 10 mg daily. 6. Remeron 15 mg at bedtime. 7. Metoprolol 25 daily. 8. Lasix 40 mg twice a day. SOCIAL HISTORY: She lives with her son. Denies smoking, drinking alcohol. She used to be a smoker in the past. PHYSICAL EXAMINATION: GENERAL: She is sleepy, but arousable. VITAL SIGNS: She is afebrile. Pulse 63, respirations 20, blood pressure 130/62. LUNGS: Bilateral good airflow. No rhonchi or crackles. HEART: S1, S2 audible. ABDOMEN: Soft, nontender. No rebound. No guarding. NEUROLOGIC: The patient is awake, alert, oriented. Although she is sleepy, but is oriented. ASSESSMENT: 1. Left renal mass, status post CT-guided biopsy under conscious sedation. 2. Aortic valve replacement. 3. Coronary artery disease. 4. Insulin-dependent diabetes. 5. Mild dementia. PLAN: The patient will be given 10 mg of Coumadin today. Once her INR hit 2, she will discontinue her heparin and continue diuretics. Will switch to p.o. Lasix. I will discontinue morning Risperdal and will continue the evening one. We will follow up this patient in a.m. Charito Dale MD [facility] # [id number]
--- NOTE | 2018-05-14 02:18 | CON ---
Copied To: Everett York MD Attending MD: Everett York MD DATE: 05/13/2018 Hospital visit consult for Terra Knight on the Transitional Care Floor, as she is being transferred from the medical floor as per her Dr. Dale for followup as per Dr. Walter. This is Terra Knight's hospital consult on TCU. For Dr. Walter. CHIEF COMPLAINT: Deconditioning. HISTORY OF PRESENT ILLNESS: The patient is an 87-year-old female, admitted for CHF with biopsy of renal mass done while patient was hospitalized with increased confusion, with improvement with psychiatric medications. She is presently resting comfortably on TCU, known to suffer from metabolic encephalopathy with the renal mass now to be evaluated once the biopsy tissue diagnosis is known. PAST MEDICAL HISTORY: Post aortic valve replacement for possible prosthetic valve and pacer with anticoagulation on Coumadin, recently diagnosed renal mass on PET scan on 04/11/2018 on inferior pole of left kidney, possibly a primary malignancy, pathology pending, COPD, dementia, history of pinning of the right hip, diabetes - diet controlled, hypertension, hypothyroidism, DJD, cardiomyopathy, left inguinal hernia. ALLERGIES: INCLUDE ASPIRIN, PENICILLIN AND FISH. FAMILY HISTORY AND SOCIAL HISTORY: Nonsmoker, non-ethanolic. Otherwise noncontributory. REVIEW OF SYSTEMS: A 12-point review of systems is done, which is negative to questioning except for items mentioned in the history of present illness. MEDICATIONS: The patient's current medications include Aricept, Ativan, Coumadin, Cozaar, heparin, potassium, Lamictal, Lasix, Lipitor, Lopressor, Pepcid, Remeron, Risperdal, Tylenol, and Xopenex. OBJECTIVE PHYSICAL EXAMINATION: VITAL SIGNS: Temperature 98.6, pulse 71, respirations 12, blood pressure 130/62, pulse ox of 94%. HEENT: Unremarkable. NECK: Supple. HEART: Paced rhythm. Regular rate. LUNGS: Rare rhonchi. ABDOMEN: Soft and nontender. EXTREMITIES: No edema. SKIN: Warm and dry. NEUROLOGIC: The patient is confused and speaks Slovenian as the primary language. LABORATORY DATA: The patient's labs were done yesterday, white blood cell count of 9.4, hemoglobin of 9.4, hematocrit 29.5 and platelet count of 366,000 with a chem metabolic panel yesterday showing a BUN of 32, creatinine of 2.1, those labs will be repeated in the morning. However, her PTT from this morning was 79.6 on IV heparin with INR of 1.62 with Coumadin now restarted. ASSESSMENT: Deconditioning; renal mass status post biopsy, pathology pending; probable renal cell carcinoma; aortic valve replacement history; mitral valve replacement history; atrial fibrillation on anticoagulation with Coumadin, being transitioned from heparin now; hypothyroidism; hypertension; atherosclerotic cardiovascular disease; pacer; degenerative joint disease; cardiomyopathy; dementia; anemia. PLAN: The plan for this patient after conversation with Dr. Walter is to wait tissue pathology with recommendations to be given thereafter. We will continue present medical regimen with transition from her heparin back to Coumadin with monitoring the INR, with the labs to be checked in the morning. Prognosis for this patient is unfortunately poor. We will monitor clinically and with labs. This is a complex patient with a comprehensive medically necessary and appropriate visit carried out in excess of 40 minutes' [id number] time with conversations held with patient's nurses and history gained from prior visits, and hospital records. Everett York MD
[2018-05-14] MEDS: Heparin25000 units/250ml 1/2NS 25,000 UNITS/250 ML BAG IV PRN (06:40)
[2018-05-14 06:50] LABS: BASO # 0.02 K/mm3 (0.0-2.0); BASO % 0.3 % (0.0-3.0); EOS # 0.4 (0.0-0.7); GRAN # 4.97 (1.4-6.5); GRAN % 63.2 % (50.0-68.0); HEMOGLOBIN 9.7 g/dL (12.0-16.0); LYMPH # 1.6 (1.2-3.4); LYMPH % 20.8 % (22.0-35.0); MEAN CELL VOLUME 78.4 fl (80.0-105.0); MEAN CORPUSCULAR HEMOGLOBIN 25.3 pg (25.0-35.0); MEAN CORPUSCULAR HGB CONC 32.2 g/dl (31.0-37.0); MEAN PLATELET VOLUME 9.2 fl (7.0-11.0); MONO # 0.8 (0.1-0.6); MONO % 10.7 % (1.0-6.0); RBC 3.84 10^6/uL (3.5-6.1); RED CELL DISTRIBUTION WIDTH 17.8 % (11.5-14.5); WHITE BLOOD COUNT 7.9 10^3/ul (4.5-11.0)
[2018-05-14 07:20] LABS: INR 1.96; PROTHROMBIN TIME 22.8 SECONDS (9.4-12.5)
[2018-05-14 07:23] LABS: PARTIAL THROMBOPLASTIN TIME 89.2 Seconds (25.1-36.5)
[2018-05-14 08:47] LABS: ALBUMIN 3.8 g/dL (3.0-4.8); CALCIUM 9.6 mg/dL (8.4-10.5)
[2018-05-14] MEDS: Potassium Chloride 20 mEq ER Tab PO SCH (09:40)
[2018-05-14 15:18] VITALS: RESP 16
[2018-05-14 17:21] VITALS: BP 109/70; PULSE 63
[2018-05-14 18:07] VITALS: TEMP 97.5; O2SAT 97
--- NOTE | 2018-05-14 21:38 | PN ---
Copied To: Everett York MD Attending MD: Everett York MD DATE: 05/14/2018 This is [facility]' hospital visit on the Transitional Care Floor. For Dr. Walter. SUBJECTIVE: The patient is an 87-year-old Setswana speaking female who speaks minimal Yoruba, seen sitting up in a chair reporting that she wants to go home today, and nurses report she had tampered with her IV heparin line and had pulled it; since then, it was discontinued as per Dr. Dale, as the patient is now to be continued with anticoagulation on Coumadin with an INR today of 1.96. She is known to suffer from confusion with patient also known to suffer from dementia along with her probable renal cell carcinoma for which tissue diagnosis is pending after recent biopsy done on the medical floor, with the report not available as of yet. However, it is suspected to be renal cell carcinoma. She is otherwise in no acute distress. PHYSICAL EXAMINATION VITAL SIGNS: Temperature 98.3, pulse 67, respirations 16, blood pressure 105/56, with a pulse ox of 94%. HEENT: Unremarkable. NECK: Supple. HEART: Regular rate, paced. LUNGS: Clear. ABDOMEN: Soft, nontender. EXTREMITIES: No edema. SKIN: Warm and dry. NEUROLOGIC: Confused, but awake and alert. LABORATORY DATA: The patient's labs were done, white blood cell count of 7.9, hemoglobin 9.7, hematocrit of 30.1 and platelet count of 368,000, with a chem metabolic panel showing a potassium of 5.1, BUN of 28, creatinine of 1.8, alkaline phosphatase of 283. Her CEA value is 4.2 dated from 05/06/2018, with a TSH of 3.3 dated 05/07/2018. Her INR today is 1.96 with a PTT of 89.2, with heparin now is discontinued after the patient pulled her IV heparin line with Dr. Dale recommending to keep the heparin discontinued and to continue her Coumadin bridging today with resumption of her dose later this afternoon. ASSESSMENT: The assessment for this patient is that of deconditioning, renal mass, probable renal cell carcinoma and awaiting tissue pathology report, aortic valve replacement history, mitral valve replacement history; atrial fibrillation, on anticoagulation with Coumadin; hypothyroidism, hypertension, atherosclerotic cardiovascular disease, pacer, degenerative joint disease, cardiomyopathy, dementia, anemia of chronic disease, with elevated BUN and creatinine. PLAN: The plan for this patient after conversation with Dr. Walter is to continue present medical regimen with Coumadin to be continued 6 mg previous dose, we will continue this, with a recheck of her labs in the morning. Her other medicines are to continue with further recommendations once the tissue pathology is returned. This is a complex patient with a comprehensive medically necessary and appropriate visit carried out in excess of 20 minutes at the bedside with the patient, and also discussion held with nursing as above. Everett York MD
== END 2018-05-14 21:30 | disposition short-term general hospital (02) | DRG 293 ==
LOC: TRCU 20:04
PROVIDERS: ADMIT Internal Medicine; ATTEND Internal Medicine
PROC: F07Z9FZ Gait Training/Functional Ambulation Treatment using Assistive, Adaptive, Supportive or Protective Equipment (ICD-10-PCS; principal; 2018-05-13)
PROC: F08Z4FZ Home Management Treatment using Assistive, Adaptive, Supportive or Protective Equipment (ICD-10-PCS; 2018-05-14)
DX: I11.0 Hypertensive heart disease with heart failure (principal); I50.9 Heart failure, unspecified; N28.89 Other specified disorders of kidney and ureter; I25.10 Atherosclerotic heart disease of native coronary artery without angina pectoris; F03.90 Unspecified dementia, unspecified severity, without behavioral disturbance, psychotic disturbance, mood disturbance, and anxiety; E03.9 Hypothyroidism, unspecified; E11.9 Type 2 diabetes mellitus without complications; I42.9 Cardiomyopathy, unspecified; M19.90 Unspecified osteoarthritis, unspecified site; I48.91 Unspecified atrial fibrillation; D63.8 Anemia in other chronic diseases classified elsewhere; Z79.4 Long term (current) use of insulin; Z79.01 Long term (current) use of anticoagulants; Z95.0 Presence of cardiac pacemaker; Z95.2 Presence of prosthetic heart valve; Z87.891 Personal history of nicotine dependence

== ENCOUNTER 2018-05-14 21:23 | Inpatient (IN) | payer MEDICARE ==
[2018-05-14 21:24] VITALS: BMI 23.5
--- NOTE | 2018-05-14 22:00 | ED PDOC ---
Arrival/HPI - General Chief Complaint: Altered Mental Status Time Seen by Provider: 05/14/18 21:30 Historian: Patient EM Caveat: Altered Mental Status - History of Present Illness Narrative History of Present Illness (Text): 05/14/18 21:49 87 year old Bruneian-speaking female, whose past medical history includes hypertension, hyperlipidemia, EDIP, CAD, CHF, renal mass s/p biopsy, and pacemaker, presents to the emergency department from the TCU for reported Altered Mental Status. Patient was reportedly agitated. Patient had prolonged hospital course with similar behavior. Patient is a poor historian. She is awake and alert, but does not respond to questions appropriately. HPI and ROS due to patient's altered mental status. Past Medical History - Provider Review Nursing Documentation Reviewed: Yes - Infectious Disease Hx of Infectious Diseases: None - Tetanus Immunization Tetanus Immunization: Unknown - Cardiac Hx Cardiac Disorders: Yes Hx Congestive Heart Failure: Yes Hx Hypertension: Yes - Pulmonary Hx Respiratory Disorders: No - Neurological Hx Neurological Disorder: Yes Hx Seizures: Yes - HEENT Hx HEENT Disorder: No - Renal Hx Renal Disorder: No - Endocrine/Metabolic Hx Diabetes Mellitus Type 2: Yes Hx Hypothyroidism: Yes - Hematological/Oncological Hx Blood Disorders: No - Integumentary Hx Dermatological Disorder: No - Musculoskeletal/Rheumatological Hx Falls: No - Gastrointestinal Hx Gastrointestinal Disorders: Yes - Genitourinary/Gynecological Hx Genitourinary Disorders: No - Psychiatric Hx Psychophysiologic Disorder: No Hx Depression: No Hx Emotional Abuse: No Hx Physical Abuse: No Hx Substance Use: No - Surgical History Hx Cardiac Catheterization: Yes Hx Gastric Bypass Surgery: Yes Hx Open Heart Surgery: Yes Hx Orthopedic Surgery: Yes (right hip fx 2 pins) Other/Comment: valve replacement - Anesthesia Hx Anesthesia: Yes Hx Anesthesia Reactions: No Hx Malignant Hyperthermia: No - Suicidal Assessment Feels Threatened In Home Enviroment: No Family/Social History - Physician Review Nursing Documentation Reviewed: Yes Family/Social History: No Known Family HX Smoking Status: Former Smoker Hx Alcohol Use: No Hx Substance Use: No Hx Substance Use Treatment: No Allergies/Home Meds Allergies/Adverse Reactions: Allergies aspirin Allergy (Intermediate, Verified 05/12/18 21:07) PAIN ABDOMINAL DISCOMFORT Penicillins Allergy (Mild, Verified 05/12/18 21:07) ITCHING FISH Allergy (Verified 05/12/18 21:07) ITCHING Home Medications: Home Meds Medication Instructions Recorded Confirmed Warfarin [Coumadin] 6 mg PO DAILY 03/02/12 05/12/18 Donepezil [Aricept] 5 mg PO DAILY 10/18/13 05/12/18 Furosemide [Lasix] 40 mg PO BID 02/10/17 05/12/18 Mirtazapine 15 mg PO DAILY 02/10/17 05/12/18 Potassium Chloride [K-Dur 20 mEq 20 meq PO DAILY 02/10/17 05/12/18 ER Tab] Simvastatin 10 mg PO DAILY 02/10/17 05/12/18 lamoTRIgine [Lamictal] 100 mg PO BID 02/10/17 05/12/18 Esomeprazole Magnesium [Nexium] 40 mg PO BID 02/17/18 05/12/18 Losartan Potassium 25 mg PO DAILY 02/17/18 05/12/18 Metoprolol Tartrate 25 mg PO BID 02/17/18 05/12/18 Review of Systems - Physician Review All systems were reviewed & negative as marked: Yes - Review of Systems Systems not reviewed;Unavailable: Altered Mental Status Physical Exam Vital Signs Reviewed: Yes Vital Signs Temp Pulse Resp BP Pulse Ox 05/15/18 03:24 72 18 109/74 98 05/15/18 01:24 75 18 112/72 97 05/14/18 23:24 85 18 110/78 98 05/14/18 21:41 98.8 F 108 H 22 108/86 99 Temperature: Afebrile Blood Pressure: Normal Pulse: Tachycardic Respiratory Rate: Normal Appearance: Positive for: Well-Appearing, Non-Toxic, Comfortable Pain Distress: None Mental Status: Positive for: Confused (Sapnish speaking. Not answering questions appropriately) - Systems Exam Head: Present: Atraumatic, Normocephalic Pupils: Present: PERRL Extroacular Muscles: Present: EOMI Conjunctiva: Present: Normal Mouth: Present: Moist Mucous Membranes Neck: Present: Normal Range of Motion Respiratory/Chest: Present: Clear to Auscultation, Good Air Exchange. No: Respiratory Distress, Accessory Muscle Use Cardiovascular: Present: Regular Rate and Rhythm, Normal S1, S2. No: Murmurs Abdomen: No: Tenderness, Distention, Peritoneal Signs Back: Present: Normal Inspection Upper Extremity: Present: Normal Inspection. No: Cyanosis, Edema Lower Extremity: Present: Normal Inspection. No: Edema Neurological: Present: GCS=15, CN II-XII Intact, Speech Normal Skin: Present: Warm, Dry, Normal Color. No: Rashes Psychiatric: Present: Alert, Other (Confused) Medical Decision Making ED Course and Treatment: 05/14/18 21:49 Impression: 87 year old female presents for evaluation of AMS sent down by TCU. h/o of similar. r/o metaabolci infectious intracranial etiolgoy Plan: -- Labs -- Head CT w/o Contrast -- EKG -- Urinalysis -- Reassess and disposition Prior Visits: Notes and results from previous visits were reviewed. Progress Notes: Patient was agitated and restrained in TCU for the safety of herself and the staff 05/14/18 22:38 CXR Impression: As read by me, negative EXAM: CT Head Without Intravenous Contrast Dictated and Authenticated by: Jerri Irizarry MD 05/14/2018 10:45 PM IMPRESSION: There are low-attenuation areas in the periventricular white matter and basal ganglia, probably reflecting chronic ischemic changes. However, if there is clinical concern for an acute infarction, followup MRI could be useful. 05/15/18 03:[address] gomez accepts for admission. - Lab Interpretations Lab Results: 05/14/18 23:30 05/14/18 23:30 Lab Results 05/14/18 23:30: Sodium 139, Potassium 4.4, Chloride 102, Carbon Dioxide 21, Anion Gap 20, BUN 34 H, Creatinine 2.6 H, Est GFR ( Amer) 21, Est GFR ( Non-Af Amer) 17, Random Glucose 118 H, Calcium 10.1, Magnesium 2.4 H, Total Bilirubin 0.4, AST 37 H D, ALT 12, Alkaline Phosphatase 295 H, Lactate Dehydrogenase 566, Total Creatine Kinase 33 L, Troponin I < 0.01, Total Protein 9.5 H, Albumin 4.6, Globulin 4.9, Albumin/Globulin Ratio 0.9 L 05/14/18 23:30: PT 22.0 H, INR 1.90, APTT 39.6 H 05/14/18 23:30: WBC 9.6 D, RBC 4.03, Hgb 10.3 L, Hct 32.3 L, MCV 80.1, MCH 25.6 , MCHC 31.9, RDW 17.9 H, Plt Count 388, MPV 9.4, Gran % 78.7 H, Lymph % (Auto) 14.1 L, [place] % (Auto) 6.0, Eos % (Auto) 1.0 L, Baso % (Auto) 0.2, Gran # 7.55 H , Lymph # (Auto) 1.4, [place] # (Auto) 0.6, Eos # (Auto) 0.1, Baso # (Auto) 0.02 I have reviewed the lab results: Yes - RAD Interpretation Radiology Orders: 05/14/18 21:47 HEAD W/O CONTRAST [CT] Stat CHEST PORTABLE [RAD] Stat - EKG Interpretation Interpreted by ED Physician: Yes Type: 12 lead EKG - Scribe Statement The provider has reviewed the documentation as recorded by the Hernando Faria Provider Scribe Attestation: All medical record entries made by the Hernando were at my direction and personally dictated by me. I have reviewed the chart and agree that the record accurately reflects my personal performance of the history, physical exam, medical decision making, and the department course for this patient. I have also personally directed, reviewed, and agree with the discharge instructions and disposition. Disposition/Present on Arrival - Present on Arrival Any Indicators Present on Arrival: No History of DVT/PE: No History of Uncontrolled Diabetes: No Urinary Catheter: No History of Decub. Ulcer: No History Surgical Site Infection Following: None - Disposition Have Diagnosis and Disposition been Completed?: Yes Diagnosis: Altered mental status Disposition: HOSPITALIZED Disposition Time: 03:00 Condition: FAIR
[2018-05-15 00:08] LABS: BASO # 0.02 K/mm3 (0.0-2.0); BASO % 0.2 % (0.0-3.0); EOS # 0.1 (0.0-0.7); GRAN # 7.55 (1.4-6.5); GRAN % 78.7 % (50.0-68.0); HEMOGLOBIN 10.3 g/dL (12.0-16.0); LYMPH # 1.4 (1.2-3.4); LYMPH % 14.1 % (22.0-35.0); MEAN CELL VOLUME 80.1 fl (80.0-105.0); MEAN CORPUSCULAR HEMOGLOBIN 25.6 pg (25.0-35.0); MEAN CORPUSCULAR HGB CONC 31.9 g/dl (31.0-37.0); MEAN PLATELET VOLUME 9.4 fl (7.0-11.0); MONO # 0.6 (0.1-0.6); RBC 4.03 10^6/uL (3.5-6.1); RED CELL DISTRIBUTION WIDTH 17.9 % (11.5-14.5); WHITE BLOOD COUNT 9.6 10^3/ul (4.5-11.0)
[2018-05-15 00:09] LABS: INR 1.9
[2018-05-15 00:12] LABS: PARTIAL THROMBOPLASTIN TIME 39.6 Seconds (25.1-36.5)
[2018-05-15 00:21] LABS: ALB/GLOB RATIO 0.9 (1.1-1.8); ALBUMIN 4.6 g/dL (3.0-4.8); ALT/SGPT 12 U/L (7-56); AST/SGOT 37 U/L (14-36); BLOOD UREA NITROGEN 34 mg/dL (7-21); CALCIUM 10.1 mg/dL (8.4-10.5); GFR AFRICAN-AMERICAN 21; GFR NON-AFRICAN AMERICAN 17
[2018-05-15 00:27] LABS: TROPONIN I < 0.01 ng/mL
--- NOTE | 2018-05-15 08:40 | RAD ---
Date of service: 05/14/2018 HISTORY: ams COMPARISON: 05/05/2018. FINDINGS: LUNGS: The lungs are well inflated. There is severe pulmonary venous congestion. PLEURA: No significant pleural effusion identified, no pneumothorax apparent. CARDIOVASCULAR: There is moderate cardiomegaly and prominent central vasculature. Status post median sternotomy. There is stable position of left-sided permanent pacing device. OSSEOUS STRUCTURES: No significant abnormalities. VISUALIZED UPPER ABDOMEN: Normal. OTHER FINDINGS: None. IMPRESSION: Moderate cardiomegaly and pulmonary venous congestion. No active pulmonary disease.
--- NOTE | 2018-05-15 09:09 | CT ---
Date of service: 05/14/2018 PROCEDURE: CT HEAD WITHOUT CONTRAST. HISTORY: ams COMPARISON: None available. TECHNIQUE: Axial computed tomography images were obtained through the head/brain without intravenous contrast. Radiation dose: Total exam DLP = 807 mGy-cm. This CT exam was performed using one or more of the following dose reduction techniques: Automated exposure control, adjustment of the mA and/or kV according to patient size, and/or use of iterative reconstruction technique. FINDINGS: HEMORRHAGE: No intracranial hemorrhage. BRAIN: No mass effect or edema. Chronic microvascular changes are seen in the periventricular white matter. 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 No hydrocephalus. CALVARIUM: Unremarkable. PARANASAL SINUSES: Unremarkable as visualized. No significant inflammatory changes. MASTOID AIR CELLS: Unremarkable as visualized. No inflammatory changes. OTHER FINDINGS: The report concurs with the preliminary [facility] report IMPRESSION: No acute findings
[2018-05-15] MEDS: Potassium Chloride 20 mEq ER Tab PO SCH (12:06)
[2018-05-15 16:00] LABS: URINE BILIRUBIN NEGATIVE (NEGATIVE); URINE BLOOD NEGATIVE (NEGATIVE); URINE GLUCOSE (UA) NEGATIVE (NEGATIVE); URINE LEUKOCYTE ESTERASE MODERATE Leu/uL (NEGATIVE); URINE PROTEIN TRACE mg/dL (<30 mg/dL); URINE UROBILINOGEN 0.2 E.U./dL (<1 E.U./dL)
[2018-05-15 16:02] LABS: URINE APPEARANCE SL CLOUDY (CLEAR); URINE COLOR YELLOW (YELLOW)
[2018-05-15 16:10] LABS: URINE BACTERIA MANY (NEG); URINE RBC NEGATIVE /hpf (0-2); URINE WBC 15 - 20 /hpf (0-6)
[2018-05-15] MEDS ORDERED: cefTRIAXone 1 gm 1 GM/100 ML BAG IVPB SCH (16:45)
[2018-05-15] MEDS ORDERED: levoFLOXacin 500 mg in D5W 500 MG/100 ML BAG IVPB SCH (17:00)
--- NOTE | 2018-05-16 03:23 | PN ---
Copied To: Mya Stewart MD Attending MD: Mya Stewart MD DATE: 05/15/2018 FOLLOWUP NOTE SUBJECTIVE: In short, the patient is 87-year-old female with not known previous psychiatric history. Initially, the patient was admitted to the medical side on May 05 for evaluation of shortness of breath. The patient was found to be delirious that is why this scenario writer got involved into the patient care. The patient was stabilized on Risperdal as well as Remeron as well as Geodon as needed. The patient was transferred to TCU unit on 04/11/2018. In TCU unit, the patient had acute change in mental status, was transferred back to the emergency room as well as required further admission to the medical site. Psych consult was called because the patient had episodes of agitation as well as needed to be in restraint overnight. To compare with the previous admission where the patient was very confused and she thought that she is a tinajero living in [facility]. Now, the patient is not sure where she is. The patient was falling asleep during the interview, seems to be a very poor historian. As per staff, overnight the patient was combative and required upper extremity soft restraint and the patient was started on one-to-one observation. VITAL SIGNS: The patient's vital signs seems to be stable. Pulse is 82, blood pressure is 120/72, respirations 18. MEDICATIONS: Reviewed. The patient is on Lipitor, Aricept, Lasix, Lamictal 100 mg twice a day, Levaquin, Cozaar, Lopressor, Remeron 15 mg will be switched to the nighttime. The patient is on K-Dur, Risperdal 0.25 mg twice a day scheduled, I agree with that, the primary care physician started that medication. The patient is on Coumadin and Geodon will be started as needed for agitation. LABORATORY DATA: Reviewed. Hemoglobin and hematocrit 10.3 and 36.3. Coagulation reviewed. Chemistry reviewed. Potassium level was 5.1 yesterday, but repeated went down to 4.4, BUN and creatinine was elevated, but is trending down. Urinalysis showed leukocyte esterase moderate. Microbiology, Klebsiella pneumonia in the urine. Reports reviewed. The patient was found to have left renal mass, status post CT guided renal biopsy. Oncology is employed. MENTAL STATUS EXAM: The patient appears to be sleepy, easily arousable. The patient does not know where she is. The patient was able to open her eyes and close them back. Mood described as "I am dull". Affect was constricted. Thought process disorganized. Thought content as per staff, the patient has episodes of agitation and restless behavior. Insight and judgment seems to be limited. Impulses are unpredictable. IMPRESSION: Based on previous history, most likely the patient is demented because the patient is on Aricept. At present moment, the patient is in delirium stage due to her urinary tract infection and multiple medical issues. PLAN: I agree with Risindudal. Remeron was started by medical team, but we will switch it to the nighttime. Geodon will be given only as needed. We will follow up and advise accordingly. At present moment, the patient does not meet the criteria to go to Psychiatric Inpatient Unit as per nurse practitioner. The patient has power of state attorney, we will follow up and advise accordingly. One-to-one should be continued as of now. Mya Stewart MD [email or web address]
[2018-05-16 06:30] LABS: HEMOGLOBIN 10.4 g/dL (12.0-16.0); MEAN CELL VOLUME 79.1 fl (80.0-105.0); MEAN CORPUSCULAR HEMOGLOBIN 25.2 pg (25.0-35.0); MEAN CORPUSCULAR HGB CONC 31.9 g/dl (31.0-37.0); MEAN PLATELET VOLUME 9.2 fl (7.0-11.0); RBC 4.12 10^6/uL (3.5-6.1); WHITE BLOOD COUNT 8.6 10^3/ul (4.5-11.0)
--- NOTE | 2018-05-16 06:49 | HP ---
Copied To: Charito Dale MD Attending MD: Charito Dale MD. HISTORY OF PRESENT ILLNESS: Patient is an 87 years old [place] female, who was transferred to TCU recently for rehab after she had her left renal biopsy done. Patient was confused, disoriented. She was given antipsychotic last night. This morning she became more confused, disoriented and was combative, so she was sent to emergency room and was admitted on acute care floor. There was no fever documented. No nausea or vomiting. No hemoptysis, no hematemesis. PAST MEDICAL HISTORY: Significant for: 1. Hypertension. 2. Dementia. 3. Coronary artery disease. 4. Status post pacemaker placement. 5. Status post aortic valve replacement. 6. Status post mitral valve replacement. 7. Recently diagnosed left renal mass, that she had biopsy done. ALLERGIES: SHE IS ALLERGIC TO ASPIRIN AND PENICILLIN. MEDICATIONS AT HOME: She is on Lasix 40 daily, metoprolol 25 daily, Remeron 15 at bedtime, daily, Coumadin 6 mg daily, Lamictal 100 mg twice a day, Aricept 5 mg daily, Nexium 40 mg daily. SOCIAL HISTORY: She lives with her son. Denies smoking, drinking, or alcohol use. PHYSICAL EXAMINATION: GENERAL: She is sleepy, but arousable. VITAL SIGNS: She is afebrile, pulse 50, respirations 18, blood pressure 98/60. LUNGS: Bilateral fair airflow, decreased at the bases. HEART: S1 and S2 audible. ABDOMEN: Soft and nontender. No rebound. No guarding. NEUROLOGIC: Patient is sleepy, but arousable. LABORATORY DATA: WBC 9.6, hemoglobin 10.3, hematocrit 32.3, platelets 388. PT 22, INR 1.9. Chemistry: Sodium 139, potassium 4.4, chloride 102, CO2 21, BUN 34, creatinine 2.6, blood sugar of 118, magnesium 2.4. Had CT scan of the head done that is unremarkable. ASSESSMENT: 1. Altered mental status. 2. Underlying dementia. 3. Aortic valve replacement. 4. Hypertension. 5. Hyperlipidemia. 6. Coronary artery disease. 7. Status post pacemaker placement. 8. Deconditioning. PLAN: We will continue patient on Risperdal 0.25 b.i.d. Coumadin 6 mg. Follow PT, INR in a.m. I will hold her Lasix for now. Patient had Klebsiella pneumoniae UTI. Since SHE IS ALLERGIC TO PENICILLIN, she has been started on Cipro. We will continue that. Follow up PT, INR in a.m. Charito Dale MD
[2018-05-16 06:55] LABS: PROTHROMBIN TIME 28.9 SECONDS (9.4-12.5)
[2018-05-16 06:56] LABS: INR 2.47
[2018-05-16 07:52] LABS: ALB/GLOB RATIO 0.9 (1.1-1.8); ALBUMIN 4.3 g/dL (3.0-4.8); CALCIUM 9.3 mg/dL (8.4-10.5)
[2018-05-16] MEDS: Potassium Chloride 20 mEq ER Tab PO SCH (09:49)
--- NOTE | 2018-05-16 09:56 | CP.PCM.PCO ---
Addendum Addendum: 05/16/18 09:53 Correction to my previous dictation note: instead of "at present moment, the patient does not meet criteria to go to psychiatric Inpatient unit as per nurse practitioner. The patient has power of employment law attorney, we will follow up and advise accordingly", should be: At present moment patient does not meet criteria to go to Psychiatric Inpatient unit. As per Nurse Practitioner patient has POA. We will follow up and advise accordingly.
[2018-05-16] MEDS ORDERED: levoFLOXacin 250 mg in D5W 250 MG/50 ML BAG IVPB SCH (10:00)
--- NOTE | 2018-05-16 12:14 | PN ---
Copied To: Mya Stewart MD Attending MD: Mya Stewart MD DATE: 05/16/2018 FOLLOWUP NOTE SUBJECTIVE: The patient was followed up today in the morning time. The patient is still in delirium stage. The patient was paranoid, feeling bad, people are calling her by different names and her wristband indicating other name besides her true name which is not true. The patient has episodes of confusion. Overnight, the patient did not sleep. The patient's vital signs are stable. Temperature 97.6, pulse is 87, blood pressure 129/66, respirations 16, oxygen saturation is 97. Medications reviewed. The patient is on Lipitor, Aricept, Lamictal, Levaquin, Cozaar, Lopressor, Remeron 15 mg at the nighttime, K-Dur, Risperdal 0.25 mg at twice a day schedule. This field underwriter will implement Risperdal 0.5 mg at the nighttime. The patient is on Coumadin 6 mg daily and Geodon as needed for agitation. Labs reviewed. Most recent was from today. Hemoglobin and hematocrit 10.4 and 32.6. Chemistry reviewed. Urinalysis reviewed. Leukocyte esterase moderate. Microbiology showed Klebsiella pneumoniae. Notes reviewed. Chest CT scan was done and it was on 05/14. No acute findings. Chest x-ray also done. Moderate cardiomegaly and pulmonary venous congestion. MENTAL STATUS EXAMINATION: The patient appears to be alert, resting in the bed. The patient knows that she is in the hospital and the name of the hospital. The patient does not know what is the date today. The patient is having intermittent eye contact. Speech was at times incoherent. The patient obviously had difficulty to concentrate and stay focused. Mood described, "I want to go home". Affect was constricted, at times tearful. Thought process, circumstantial and tangential. Thought content, the patient has periods of confusion, agitation, paranoia. Insight and judgment seems to be limited. Impulses are unpredictable. IMPRESSION: The patient is in delirium stage due to urinary tract infection and medical issues. The patient also has history of dementia. PLAN: Risperdal was increased to 1 mg a day; 0.25 mg twice a day and 0.5 mg at the nighttime. The patient is on Remeron 15 mg at the nighttime. Geodon as needed. The patient has power of banking attorney as per nurse practitioner. Meanwhile, the patient is on one to one observation because the patient has risk of falls, also the patient is having episodes of agitation as well as restless behavior. No aggression towards others. I hope after medical issues addressed and infection subsided, the patient's mental status will be improving. As of now, the patient does not meet the criteria to go to the Psychiatric Inpatient Unit. Should you have any questions, give me a call back. Thank you very much for letting me participate in care of your patient. Mya Stewart MD
--- NOTE | 2018-05-16 16:52 | PN ---
Copied To: Charito Dale MD Attending MD: Charito Dale MD. DATE: 05/16/2018 SUBJECTIVE: Patient is an 87 years old, seen and examined, seems to be confused and disoriented, still on one-to-one, gets agitated at times, wants to go home, trying to climb out of bed. PHYSICAL EXAMINATION: VITAL SIGNS: She is afebrile, pulse 86, respirations 16, blood pressure 127/66. LUNGS: Bilateral fair airflow. No rhonchi or crackle. HEART: S1 and S2, audible. ABDOMEN: Soft, nontender. No rebound, no guarding. NEUROLOGICAL: Patient is awake, alert, oriented, communicative. LABORATORY EXAMINATION: WBC is 8.6, hemoglobin 10.4, hematocrit 32.6, platelets 405. PT 28.9, INR 2.47. Chemistry: Sodium 140, potassium 4.9, chloride 107, CO2 18, BUN 32, creatinine 2.2, blood sugar of 110. ASSESSMENT: 1. Altered mental status. 2. Dementia. 3. History of aortic valve replacement. 4. Mitral valve replacement. 5. Renal mass status post biopsy. PLAN: We will continue the patient on Aricept. Continue her on Coumadin 6 mg daily. She is on Levaquin 250 since she is growing Klebsiella pneumoniae sensitive to Cipro and Levaquin and PATIENT IS ALLERGIC TO PENICILLIN. Patient is still on one-to-one for her safety and continue Risperdal and monitor closely. At this point, she is not a candidate for TCU or subacute rehab until her mental status improves. Charito Dale MD : 05/16/2018 12:17:10
[2018-05-17 07:04] LABS: INR 2.68; PROTHROMBIN TIME 31.4 SECONDS (9.4-12.5)
[2018-05-17] MEDS: Potassium Chloride 20 mEq ER Tab PO SCH (09:35)
--- NOTE | 2018-05-17 14:11 | PN ---
Copied To: Charito Dale MD Attending MD: Charito Dale MD DATE: 05/17/2018 SUBJECTIVE: The patient is 87 years old, seen and examined, seems to be much more awake and alert, still on one-to-one that was just discontinued. Her behavior needs to be watched, was evaluated by physical therapy, recommending subacute rehab. PHYSICAL EXAMINATION: GENERAL: Today, she is awake, alert and oriented, somewhat confused, has sundowning, more confused in the evening. VITAL SIGNS: She is afebrile, pulse 70, respirations 20, blood pressure 99/58. LUNGS: Bilateral fair airflow. No rhonchi or crackle. HEART: S1 and S2, audible. ABDOMEN: Soft, nontender. No rebound, no guarding. NEUROLOGICAL: The patient is awake, alert, oriented, able to communicate, moves all extremities. LABORATORY DATA: WBC is 8.6, hemoglobin 10.4, hematocrit 32.6, platelets 405. PT 31.4, INR 2.68. Chemistry: Blood sugar is 138. Urine culture positive for Gram-negative rods, sensitivity to follow. The patient is growing Klebsiella pneumoniae on culture done on 05/13/2018, sensitive to Levaquin. 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 ASSESSMENT: 1. Altered mental status. 2. Klebsiella urinary tract infection. 3. Escherichia coli urinary tract infection. 4. Dementia with sundowning. 5. Mitral valve replacement. 6. Aortic valve replacement. 7. Renal mass, biopsy showing renal cell carcinoma. 8. Deconditioning and difficulty walking. PLAN: The patient is off of one-to-one observation. We will monitor her behavior. Will be presenting subacute rehab. So, I will request Dr. Walter to evaluate the patient since biopsy is available to discuss further option with patient's family. Once arrangement is made, she can be transferred to subacute rehab after evaluation by Dr. Walter for further plan. Charito Dale MD
[2018-05-17] MEDS: Sodium Chloride 0.9% 1,000 ML IV SCH (14:43)
[2018-05-17 16:52] VITALS: PULSE 80; O2SAT 97
--- NOTE | 2018-05-17 19:23 | PN ---
Copied To: Mya Stewart MD Attending MD: Mya Stewart MD DATE: 05/17/2018 SUBJECTIVE: In short, the patient is an 87-year-old female with questionable history of dementia. The patient was transferred from TCU for worsening of altered mental status and agitation. The patient was found to have urinary tract infection. The patient is currently on antibiotics. This singer songwriter was called for evaluation of agitation and confusion, which is related to the medical issues and delirium. Over the past couple of days, the patient has stable improvement. The patient is more alert. The patient knows that she is in the hospital. Agitation is much less frequent. Most of the time, the patient feels confused at the . This singer songwriter evaluated the patient today. The patient presented to be alert. The patient knows that she is in the hospital. The patient is more coherent and less paranoid to compare with yesterday. Yesterday, the patient felt that people are calling her by different name and on the wristband different name was given to her, which is absolutely not true. Today, the patient is waiting for someone by the name Ria. The patient does not know who Ria is. Staff also is not aware. The patient is still in delirium stage, but agitation is much much better. VITAL SIGNS: Seems to be stable. Temperature 97.6, pulse is 80, blood pressure 101/60, respirations 18, oxygen saturation is 97. MEDICATIONS: Reviewed. Lipitor, Aricept, Lamictal, Levaquin, Cozaar, Lopressor, Remeron 15 mg at the nighttime, K-Dur, Risperdal will be decreased to 0.25 mg twice a day at the morning time and at the nighttime, Remeron is given to the patient at the nighttime for insomnia and depression. LABORATORY DATA: Reviewed. Most recent from yesterday. Microbiology came back from positive for Gram-negative frankie for urine. MENTAL STATUS EXAMINATION: The patient presented to be alert. The patient knows that she is in the hospital, knows the season, but is not aware of the date. Hygiene is improving. Mood described, "I feel little better, but I feel dizzy." Affect was constricted, but reactive. Mood congruent. Thought process was more coherent, but at times, the patient has circumstantiality. Thought content, the patient has periods of confusion in , but much better. No aggression or agitation. Insight and judgment seems to be limited, but improving. Impulses are well controlled. IMPRESSION: Delirium due to urinary tract infection as per history of dementia. PLAN: We will discontinue one-to-one because the patient presented much better. This singer songwriter will decrease the dose of Risperdal to 0.25 mg twice a day at the morning time, at the nighttime of Remeron needs to be continued. We will monitor mental status. The patient does not meet the criteria to go to the Psychiatric Inpatient Unit. The patient is obviously in delirium stage due to urinary tract infection. Dr. Rosario will follow up on this patient to make sure that the patient has stable improvement. Thank you very much for letting me participate in the care of your patient. Should you have any questions give me a call back. Mya Stewart MD MTDEvelio
[2018-05-18] MEDS: Sodium Chloride 0.9% 1,000 ML IV SCH (01:11)
[2018-05-18 06:49] VITALS: BP 117/66; RESP 20; TEMP 97.9
--- NOTE | 2018-05-18 07:22 | CP.PCM.CON ---
History of Present Illness - History of Present Illness History of Present Illness: Tejal Smith, PGY2, Heme-Onc Consult for Dr Walter: Reason for consult: hx of renal mass, discuss with family regarding treatment options 87 year old female with PMH dementia, seizure disorder on Lamictal, CHF with EF 35% (02/2018), HTN, hypothyroidism, CAD, OA, aortic valve replacement, mitral valve replacement, diabetic cardiomyopathy, transferred [place] TCU [place] [facility] [place] for A[place]. Patient initially admitted to [facility] on 05/05/18 for CHF exacerbation and evaluation of left renal mass. At the time, CT guided biopsy of left renal mass was done, pathology report shows it to be renal cell carcinoma, clear cell type with necrosis. While at TCU, patient had AMS, 2/2 likely UTI and long standing dementia. Urine culture grew gram negative frankie, currently on Levaquin. Patients status improving. Neurology consult done, no CVA seen on head CT/mri brain, EEG did not show any seizure activity. Oncology consulted to discuss treatment options with patient and family regarding renal cell carcinoma. 12 point ROS obtained and negative, except as per HPI. PMH: dementia, seizure disorder on Lamictal, CHF with EF 35% (02/2018), HTN, hypothyroidism, CAD, OA, aortic valve replacement, mitral valve replacement, diabetic cardiomyopathy PSH: mitral valve replacement, aortic valve replacement All: ASA, PCN FH: denies SH: former smoker. denies alcohol, drug use Review of Systems - Review of Systems All systems: reviewed and no additional remarkable complaints except Review of Systems: as per HPI Past Patient History - Infectious Disease Hx of Infectious Diseases: None - Tetanus Immunizations Tetanus Immunization: Unknown - Past Social History Smoking Status: Former Smoker - CARDIAC Hx Cardiac Disorders: Yes Hx Congestive Heart Failure: Yes Hx Hypertension: Yes - PULMONARY Hx Respiratory Disorders: No - NEUROLOGICAL Hx Neurological Disorder: Yes Hx Seizures: Yes - HEENT Hx HEENT Problems: No - RENAL Hx Chronic Kidney Disease: No - ENDOCRINE/METABOLIC Hx Diabetes Mellitus Type 2: Yes Hx Hypothyroidism: Yes - HEMATOLOGICAL/ONCOLOGICAL Hx Blood Disorders: No - INTEGUMENTARY Hx Dermatological Problems: No - MUSCULOSKELETAL/RHEUMATOLOGICAL Hx Falls: No - GASTROINTESTINAL Hx Gastrointestinal Disorders: Yes - GENITOURINARY/GYNECOLOGICAL Hx Genitourinary Disorders: No - PSYCHIATRIC Hx Psychophysiologic Disorder: No Hx Depression: No Hx Emotional Abuse: No Hx Physical Abuse: No Hx Substance Use: No - SURGICAL HISTORY Hx Cardiac Catheterization: Yes Hx Gastric Bypass Surgery: Yes Hx Open Heart Surgery: Yes Hx Orthopedic Surgery: Yes (right hip fx 2 pins) Other/Comment: valve replacement - ANESTHESIA Hx Anesthesia: Yes Hx Anesthesia Reactions: No Hx Malignant Hyperthermia: No Meds Allergies/Adverse Reactions: Allergies Allergy/AdvReac Type Severity Reaction Status Date / Time aspirin Allergy Intermediate PAIN Verified 05/12/18 21:07 Penicillins Allergy Mild ITCHING Verified 05/12/18 21:07 FISH Allergy ITCHING Verified 05/12/18 21:07 - Medications Medications: Current Medications Atorvastatin Calcium (Lipitor) 10 mg PO DIN [facility] Last Admin: 05/17/18 17:40 Dose: 10 mg Donepezil HCl (Aricept) 5 mg PO DAILY [facility] Last Admin: 05/17/18 09:36 Dose: 5 mg Levofloxacin/Dextrose (Levaquin 500mg) 500 mg in 100 mls @ 100 mls/hr IVPB DAILY [facility] PRN Reason: Protocol Stop: 05/18/18 10:59 Levofloxacin/Dextrose (Levaquin 250mg) 250 mg in 50 mls @ 100 mls/hr IVPB Q48H [facility] Sodium Chloride (Sodium Chloride 0.9%) 1,000 mls @ 100 mls/hr IV .Q10H [facility] Last Admin: 05/18/18 01:11 Dose: 100 mls/hr Lamotrigine (Lamictal) 100 mg PO BID [facility] PRN Reason: Protocol Last Admin: 05/17/18 17:40 Dose: 100 mg Losartan Potassium (Cozaar) 25 mg PO DAILY [facility] Last Admin: 05/17/18 09:40 Dose: Not Given Metoprolol Tartrate (Lopressor) 25 mg PO BID [facility] Last Admin: 05/17/18 17:40 Dose: 25 mg Mirtazapine (Remeron) 15 mg PO HS [facility] Last Admin: 05/17/18 21:21 Dose: 15 mg Potassium Chloride (K-Dur 20 Meq Er Tab) 20 meq PO DAILY [facility] Last Admin: 05/17/18 09:35 Dose: 20 meq Risperidone (Risperdal Tab) 0.25 mg PO HS [facility] PRN Reason: Protocol Last Admin: 05/17/18 21:21 Dose: 0.25 mg Risperidone (Risperdal Tab) 0.25 mg PO DAILY [facility] PRN Reason: Protocol Warfarin Sodium (Coumadin) 6 mg PO DAILY [facility] PRN Reason: Protocol Last Admin: 05/17/18 09:35 Dose: 6 mg Ziprasidone (Geodon Inj) 10 mg IM Q8H PRN; Protocol PRN Reason: severe agitaiton/psychosis Physical Exam - Constitutional Appears: Non-toxic, Older Than Stated Age, Confused, Chronically Ill - Head Exam Head Exam: ATRAUMATIC, NORMOCEPHALIC - Eye Exam Eye Exam: EOMI, PERRL. absent: Conjunctival injection, Nystagmus, Scleral icterus Pupil Exam: NORMAL ACCOMODATION, PERRL. absent: Miosis, Mydriatic, Unequal - ENT Exam ENT Exam: Mucous Membranes Moist - Neck Exam Neck exam: Positive for: Full Rom - Respiratory Exam Respiratory Exam: Clear to Auscultation Bilateral, NORMAL BREATHING PATTERN. absent: Accessory Muscle Use, Chest Wall Tenderness, Stridor - Cardiovascular Exam Cardiovascular Exam: RRR, +S1, +S2, Systolic Murmur - GI/Abdominal Exam GI & Abdominal Exam: Normal Bowel Sounds, Soft. absent: Distended, Firm, Organomegaly, Rebound, Rigid, Tenderness - Extremities Exam Extremities exam: Positive for: normal inspection. Negative for: calf tenderness, pedal edema - Back Exam Back exam: NORMAL INSPECTION. absent: CVA tenderness (L), CVA tenderness (R) - Neurological Exam Neurological exam: Alert Additional comments: oriented to self and place. Waxes and wanes - Psychiatric Exam Additional comments: confused - Skin Skin Exam: Dry, Normal Color, Warm Results - Vital Signs Recent Vital Signs: Last Vital Signs Temp 97.9 F 05/18/18 06:00 Pulse 80 05/18/18 06:00 Resp 20 05/18/18 06:00 BP 117/66 05/18/18 06:00 Pulse Ox 97 05/18/18 06:00 - Labs Result Diagrams: 05/16/18 05:30 05/16/18 05:30 Labs: Laboratory Results - last 24 hr 05/17/18 05/17/18 05/17/18 08:04 11:19 16:09 POC Glucose (mg/dL) 98 138 H 124 H 05/17/18 21:00 POC Glucose (mg/dL) 129 H Assessment & Plan - Assessment and Plan (Free Text) Assessment: 87 year old female with PMH dementia, seizure disorder on Lamictal, CHF, HTN, hypothyroidism, CAD, OA, aortic valve replacement, mitral valve replacement, diabetic cardiomyopathy, former smoker, re-admitted [place] [facility] [place]CU for AMS likely 2/2 UTI, dementia related. Patients recent culture grew gram negative frankie, awaiting sensitivities. Patient currently on Levaquin, based on prior urine culture results (which was sensitive to Levaquin). Oncology consulted as renal biopsy results showed renal cell carcinoma, clear cell type with necrosis. PMD wants further discussion with family regarding treatment options: - c/w IV Levaquin for UTI - CAT abdomen and pelvis 02/2018 shows 6.3x5.8x4.5 cm heterogenously enhancing partially solid left renal mass. Has located, relatively well defined margins. Mild right hydrourteronepjhrosis. No left hydroureteronephrosis - Prior Neuro consult appreciated. EEG results reviewed. - PET scan shows no distant mets - Last echo 04/2018 shows EF 35%. Mild LVH. - Surgery consulted in the past - not a candidate for surgical intervention due to multiple comorbid conditions, advanced age - Discussed with son regarding treatment options: targeted radiation therapy or immunotherapy. Patient can undergo these treatments once patient's condition improves. Case seen and discussed with Dr Walter.
[2018-05-18 07:51] LABS: BASO # 0.03 K/mm3 (0.0-2.0); BASO % 0.4 % (0.0-3.0); EOS # 0.2 (0.0-0.7); EOS % 3.4 % (1.5-5.0); GRAN # 5.14 (1.4-6.5); GRAN % 72.9 % (50.0-68.0); HEMOGLOBIN 8.8 g/dL (12.0-16.0); LYMPH # 1.2 (1.2-3.4); LYMPH % 16.3 % (22.0-35.0); MEAN CELL VOLUME 79.4 fl (80.0-105.0); MEAN CORPUSCULAR HEMOGLOBIN 24.9 pg (25.0-35.0); MEAN CORPUSCULAR HGB CONC 31.3 g/dl (31.0-37.0); MEAN PLATELET VOLUME 8.6 fl (7.0-11.0); MONO # 0.5 (0.1-0.6); RBC 3.54 10^6/uL (3.5-6.1); RED CELL DISTRIBUTION WIDTH 18.3 % (11.5-14.5); WHITE BLOOD COUNT 7.1 10^3/ul (4.5-11.0)
[2018-05-18 08:00] LABS: ALB/GLOB RATIO 0.9 (1.1-1.8); ALBUMIN 3.8 g/dL (3.0-4.8)
[2018-05-18] MEDS: Potassium Chloride 20 mEq ER Tab PO SCH (09:37)
[2018-05-18] MEDS ORDERED: levoFLOXacin 500 mg in D5W 500 MG/100 ML BAG IVPB SCH (10:00)
--- NOTE | 2018-05-18 14:52 | DS ---
Copied To: Charito Dale MD Attending MD: Charito Dale MD HISTORY OF PRESENT ILLNESS: The patient is an 87 years old, who was initially admitted on 05/05/2018 with shortness of breath. She had congestive heart failure. The patient also has history of mitral and aortic valves replacement. She was on Coumadin, so she was diuresed and taken off of Coumadin for her renal mass biopsy. The following Tuesday, she had biopsy done. Postprocedure, the patient became confused and disoriented. She was seen by psychiatrists and neurologists and started on Geodon p.r.n. and Risperdal and then she was transferred to TCU, but in TCU, she has altered mental status, she was agitated, she was transferred back to emergency room where she was readmitted on acute care floor. She was on one-to-one, has been on Risperdal, doing well now. PHYSICAL EXAMINATION: GENERAL: Today, she is awake, alert, oriented, communicative. VITAL SIGNS: She is afebrile, pulse 80, respirations 20, blood pressure 117/66. LUNGS: Bilateral fair airflow. No rhonchi or crackle. HEART: S1 and S2 audible. ABDOMEN: Soft, nontender. No rebound. No guarding. NEUROLOGICAL: The patient is awake, alert, oriented, able to communicate, somewhat confused mostly in the evening. LABORATORY EXAMINATION: WBC 7.1, hemoglobin 8.8, hematocrit 28.1 and platelets of 359. Chemistry: Sodium 143, potassium 5, chloride 112, CO2 of 20, BUN 24, creatinine 1.7, blood sugar 97. Her PT is 31.4. INR 2.68. ASSESSMENT: 1. Congestive heart failure exacerbation, resolved. 2. Renal mass, biopsy shows renal cell carcinoma. 3. Dementia with . 4. Status post mitral valve replacement. 5. Status post aortic valve replacement. 6. Hypertension. 7. Hyperlipidemia. 8. Klebsiella pneumoniae urinary tract infection, sensitive to Cipro. PLAN: The patient is currently on Coumadin 6 mg. She will be discharged [place]acute [place] and she will be given Levaquin 250 every other day, total of 10 days and her PT/INR need to be closely monitored while she was on Cipro and she will be transferred today to subacute rehab. Charito Dale MD
--- NOTE | 2018-05-18 15:52 | CON ---
Copied To: Jacqui Rosario MD Attending MD: Jacqui Rosario MD DATE: 05/18/2018 HISTORY OF PRESENT ILLNESS: The patient is an 87-year-old female with a past medical history of dementia and likely delirium. The patient is seen by Psychiatry due to mental status changes likely secondary to urinary tract infection. Psychiatry has been following the patient for agitation and confusion, which appears to be more and more likely due to delirium. The patient had demonstrated stable improvement over the last couple of days. She is notably more alert and oriented to current circumstances. Agitation is much less frequent and there are no incidences overnight. I reviewed Dr. Stewart's notes, which also indicated that the patient has been much more coherent and less paranoid compared to prior days, and though she showed some paranoia and delusions yesterday. During my bedside meeting today, she denied having any paranoid thoughts of being monitored or persecuted. She denied having any auditory hallucinations; however, readily admitted to having visual hallucinations of insects flying around her almost on a daily basis. The patient reports that she knows they are not real and they could be related to seeing shadows and not necessarily insects. The patient's responses are generally relevant to my questioning. She is pleasant and cooperative, and she denies any issues with her current medications. She reports that she is sleeping, and mood is okay. She is oriented to the fact that she is in the hospital. She knows that it is May and it is 2017. As noted, staff indicates that her agitation is much better, and she does not demonstrate any issues with impulse control in the course of my interview with her. Insight and judgment are definitely improved. Vital signs and labs were reviewed. MEDICATIONS: Reviewed and relevant psychiatric medications includes Lamictal 100 mg p.o. b.i.d., Remeron 60 mg at bedtime, Risperdal 0.25 mg a.m. and at bedtime. IMPRESSION: Resolving delirium due to urinary tract infection, dementia versus age-related cognitive decline. PLAN: As noted, one-to-one was discontinued and Risperdal has been decreased without any resultant increase in agitation or issues with impulse control. She does not require any p.r.n. for agitation and behavior is much more predictable and consistent in this respect. Psychiatry will sign off at this time and she is psychiatrically cleared. Please reconsult p.r.n., if there are any acute changes in the patient's presentation. Jacqui Rosario MD
[2018-05-20] MEDS ORDERED: levoFLOXacin 250 mg in D5W 250 MG/50 ML BAG IVPB SCH (10:00)
== END 2018-05-18 15:34 | DRG 690 ==
LOC: ED 21:23 → ERH 05-15 00:35 → 3RNO 05-15 03:47
PROVIDERS: ADMIT Internal Medicine; ATTEND Internal Medicine
DX: N39.0 Urinary tract infection, site not specified (principal); F05 Delirium due to known physiological condition; C64.2 Malignant neoplasm of left kidney, except renal pelvis; I42.9 Cardiomyopathy, unspecified; I11.0 Hypertensive heart disease with heart failure; I50.9 Heart failure, unspecified; F03.90 Unspecified dementia, unspecified severity, without behavioral disturbance, psychotic disturbance, mood disturbance, and anxiety; G40.909 Epilepsy, unspecified, not intractable, without status epilepticus; I25.10 Atherosclerotic heart disease of native coronary artery without angina pectoris; E11.69 Type 2 diabetes mellitus with other specified complication; E03.9 Hypothyroidism, unspecified; B96.1 Klebsiella pneumoniae [K. pneumoniae] as the cause of diseases classified elsewhere; B96.20 Unspecified Escherichia coli [E. coli] as the cause of diseases classified elsewhere; E78.5 Hyperlipidemia, unspecified; Z79.01 Long term (current) use of anticoagulants; Z79.899 Other long term (current) drug therapy; Z87.891 Personal history of nicotine dependence; Z95.0 Presence of cardiac pacemaker; Z95.2 Presence of prosthetic heart valve; Z98.84 Bariatric surgery status; Z88.6 Allergy status to analgesic agent; Z88.0 Allergy status to penicillin; Z91.013 Allergy to seafood; M19.90 Unspecified osteoarthritis, unspecified site; R53.81 Other malaise; R26.2 Difficulty in walking, not elsewhere classified

== ENCOUNTER 2018-07-23 00:20 | Inpatient (IN) | payer MEDICARE ==
--- NOTE | 2018-07-23 00:32 | ED PDOC ---
Arrival/HPI - General Chief Complaint: Altered Mental Status Time Seen by Provider: 07/23/18 00:26 Historian: Patient - History of Present Illness Narrative History of Present Illness (Text): 07/23/18 00:32 Terra Knight is an 87 year old female, whose past medical history includes CAD, hypertension, dementia, pacemaker, aortic valve replacement, mitral valve replacement, hip fracture, left renal mass, CHF, and hypothyroidism, who presents to the Emergency department brought in by EMS accompanied by family status post fall. As per family, they had been calling the patient at her home, where she lives on her own, all throughout the day but patient did not answer the phone. Family became concerned, granddaughter went to check on the patient at approximately 23:00, and found the patient lying on the floor. Granddaughter states the patient urinated on herself and was complaining of left hip pain. Limited HPI and ROS secondary to patient's dementia. PMD: Dr. Dale Symptom Onset: Gradual Symptom Course: Unchanged Activities at Onset: Light Context: Home Past Medical History - Provider Review Nursing Documentation Reviewed: Yes - Infectious Disease Hx of Infectious Diseases: None - Tetanus Immunization Tetanus Immunization: Unknown - Cardiac Hx Cardiac Disorders: Yes Hx Congestive Heart Failure: Yes Hx Hypertension: Yes - Pulmonary Hx Respiratory Disorders: No - Neurological Hx Neurological Disorder: Yes Hx Seizures: Yes - HEENT Hx HEENT Disorder: No - Renal Hx Renal Disorder: No - Endocrine/Metabolic Hx Diabetes Mellitus Type 2: Yes Hx Hypothyroidism: Yes - Hematological/Oncological Hx Blood Disorders: No - Integumentary Hx Dermatological Disorder: No - Musculoskeletal/Rheumatological Hx Falls: No - Gastrointestinal Hx Gastrointestinal Disorders: Yes - Genitourinary/Gynecological Hx Genitourinary Disorders: No - Psychiatric Hx Psychophysiologic Disorder: No Hx Depression: No Hx Emotional Abuse: No Hx Physical Abuse: No Hx Substance Use: No - Surgical History Hx Cardiac Catheterization: Yes Hx Gastric Bypass Surgery: Yes Hx Open Heart Surgery: Yes Hx Orthopedic Surgery: Yes (right hip fx 2 pins) Other/Comment: valve replacement - Anesthesia Hx Anesthesia: Yes Hx Anesthesia Reactions: No Hx Malignant Hyperthermia: No - Suicidal Assessment Feels Threatened In Home Enviroment: No Family/Social History - Physician Review Nursing Documentation Reviewed: Yes Family/Social History: Unknown Family HX Smoking Status: Former Smoker Hx Alcohol Use: No Hx Substance Use: No Hx Substance Use Treatment: No Allergies/Home Meds Allergies/Adverse Reactions: Allergies aspirin Allergy (Intermediate, Verified 07/23/18 00:24) PAIN ABDOMINAL DISCOMFORT Penicillins Allergy (Mild, Verified 07/23/18 00:24) ITCHING FISH Allergy (Verified 07/23/18 00:24) ITCHING Home Medications: Home Meds Medication Instructions Recorded Confirmed RX: Donepezil [Aricept] 5 mg PO HS 10/18/13 07/23/18 RX: Mirtazapine 15 mg PO DAILY 02/10/17 07/23/18 RX: Potassium Chloride [K-Dur 20 20 meq PO DAILY 02/10/17 07/23/18 mEq ER Tab] RX: Simvastatin 10 mg PO DAILY 02/10/17 07/23/18 RX: lamoTRIgine [Lamictal] 100 mg PO BID 02/10/17 07/23/18 RX: Losartan Potassium 25 mg PO DAILY 02/17/18 07/23/18 RX: Metoprolol Tartrate 25 mg PO BID 02/17/18 07/23/18 Review of Systems - Review of Systems Systems not reviewed;Unavailable: Dementia Musculoskeletal: Arthralgias (+left hip pain) Physical Exam Vital Signs Reviewed: Yes Temperature: Afebrile Blood Pressure: Normal Pulse: Regular Respiratory Rate: Normal Pain Distress: None Mental Status: Positive for: other (Awake, alert) - Systems Exam Head: Present: Atraumatic, Normocephalic Pupils: Present: PERRL Extroacular Muscles: Present: EOMI Conjunctiva: Present: Normal Mouth: Present: Moist Mucous Membranes Neck: Present: Normal Range of Motion Respiratory/Chest: Present: Clear to Auscultation, Good Air Exchange. No: Respiratory Distress, Accessory Muscle Use Cardiovascular: Present: Regular Rate and Rhythm, Normal S1, S2. No: Murmurs Abdomen: No: Tenderness, Distention, Peritoneal Signs Back: Present: Normal Inspection Upper Extremity: Present: Normal Inspection. No: Cyanosis, Edema Lower Extremity: Present: NORMAL PULSES, Tenderness (Left hip tenderness), Neurovascularly Intact, Capillary Refill < 2 s. No: Edema, Cyanosis, Erythema, Temperature Abnormalties Neurological: Present: GCS=15 Skin: Present: Warm, Dry, Normal Color. No: Rashes Psychiatric: Present: Alert Medical Decision Making ED Course and Treatment: 07/23/18 00:32 Impression: 87 year old female brought in by EMS status post fall at home. Plan: -- CT Head w/o contrast -- CT Left Lower Extremity w/o contrast -- EKG -- Chest X-ray -- Labs, cardiac enzymes, alcohol level, ammonia level, blood cultures -- Urinalysis, urine cultures, urine drug screen -- Reassess and disposition Prior Visits: Notes and results from previous visits were reviewed. On 05/14/2018, patient was seen in the Emergency department for altered mental status. Patient was admitted to the hospital for further evaluation. Progress Notes: Reviewed EKG, a fib at 80bpm. PVCs. LBBB. 07/23/18 03:14 Reviewed radiology, Chest X-ray shows no acute processes. CT Head shows: BRAIN Chronic periventricular and subcortical microvascular disease is seen. VENTRICLES: There is generalized parenchymal atrophy noted as demonstrated by symmetrical dilatation of ventricles and sulci. ORBITS: The orbits are unremarkable. SINUSES AND MASTOIDS: The paranasal sinuses and mastoid air cells are clear. BONES: No fracture. MISCELLANEOUS: No acute intracranial pathology. IMPRESSION: 1. There is generalized parenchymal atrophy noted as demonstrated by symmetrical dilatation of ventricles and sulci. 2. Chronic periventricular and subcortical microvascular disease is seen. 3. No acute intracranial pathology. Electronically signed on Jul 23, 2018 2:57:22 AM EDT by: Sotero Wells M.D., MBA Certified By [employer] Fellowship Trained MRI and CT Specialist CT Left Lower Extremity shows: BONES: No acute fracture or aggressive appearing osseous lesion. JOINTS: Mild DJD is noted. No dislocation. The joint spaces are normal. SOFT TISSUES: The soft tissues are unremarkable. IMPRESSION: Mild DJD. No acute osseous abnormality. Electronically signed on Jul 23, 2018 3:09:37 AM EDT by: Sotero Wells M.D., ANDREW Certified By [employer] Fellowship Trained MRI and CT Specialist 07/23/18 03:[address] Dale, who is aware and agrees with plan. Accepts pt in to his service. Pt admitted to Telemetry for syncope and UTI. - Lab Interpretations I have reviewed the lab results: Yes - EKG Interpretation Interpreted by ED Physician: Yes Type: 12 lead EKG - Scribe Statement The provider has reviewed the documentation as recorded by the Hernando Parker Provider Scribe Attestation: All medical record entries made by the Scribe were at my direction and personally dictated by me. I have reviewed the chart and agree that the record accurately reflects my personal performance of the history, physical exam, medical decision making, and the department course for this patient. I have also personally directed, reviewed, and agree with the discharge instructions and disposition. Disposition/Present on Arrival - Present on Arrival Any Indicators Present on Arrival: No History of DVT/PE: No History of Uncontrolled Diabetes: No Urinary Catheter: No History of Decub. Ulcer: No History Surgical Site Infection Following: None - Disposition Have Diagnosis and Disposition been Completed?: Yes Diagnosis: Altered mental status, Syncope Disposition: HOSPITALIZED Disposition Time: 04:00 Condition: FAIR
[2018-07-23 01:13] LABS: ALB/GLOB RATIO 0.8 (1.1-1.8); ALBUMIN 4.6 g/dL (3.0-4.8); ALT/SGPT 31 U/L (7-56); AST/SGOT 36 U/L (14-36); BLOOD UREA NITROGEN 16 mg/dL (7-21); CALCIUM 9.4 mg/dL (8.4-10.5); GFR NON-AFRICAN AMERICAN 39
[2018-07-23 01:24] LABS: TROPONIN I < 0.01 ng/mL
[2018-07-23 01:26] LABS: BASO # 0.03 K/mm3 (0.0-2.0); BASO % 0.3 % (0.0-3.0); EOS # 0.2 (0.0-0.7); EOS % 2.1 % (1.5-5.0); GRAN # 8.32 (1.4-6.5); GRAN % 82.1 % (50.0-68.0); LYMPH # 0.9 (1.2-3.4); LYMPH % 9.3 % (22.0-35.0); MEAN CELL VOLUME 79.3 fl (80.0-105.0); MEAN CORPUSCULAR HEMOGLOBIN 24.9 pg (25.0-35.0); MEAN CORPUSCULAR HGB CONC 31.4 g/dl (31.0-37.0); MEAN PLATELET VOLUME 8.6 fl (7.0-11.0); MONO # 0.6 (0.1-0.6); MONO % 6.2 % (1.0-6.0); RBC 4.01 10^6/uL (3.5-6.1); WHITE BLOOD COUNT 10.1 10^3/ul (4.5-11.0)
[2018-07-23 01:28] LABS: INR 2.67; PARTIAL THROMBOPLASTIN TIME 40.7 Seconds (25.1-36.5); PROTHROMBIN TIME 31.1 SECONDS (9.4-12.5)
[2018-07-23 01:47] LABS: PH,URINE 6.5 (4.7-8.0); URINE BILIRUBIN NEGATIVE (NEGATIVE); URINE BLOOD MODERATE (NEGATIVE); URINE GLUCOSE (UA) NEGATIVE (NEGATIVE); URINE LEUKOCYTE ESTERASE SMALL Leu/uL (NEGATIVE); URINE PROTEIN NEGATIVE mg/dL (<30 mg/dL); URINE UROBILINOGEN 0.2 E.U./dL (<1 E.U./dL)
[2018-07-23 02:05] LABS: BARBITURATES, UR NEGATIVE (NEGATIVE); BENZODIAZEPINES, UR NEGATIVE (NEGATIVE); OPIATES, UR NEGATIVE (NEGATIVE); PHENCYCLIDINE, UR NEGATIVE (NEGATIVE)
[2018-07-23 03:04] LABS: URINE APPEARANCE CLEAR (CLEAR); URINE COLOR STRAW (YELLOW)
[2018-07-23] MEDS ORDERED: Aztreonam 1 Gm in NS 100mL 100 ML IVPB STA (03:07)
[2018-07-23] MEDS ORDERED: Sodium Chloride 0.9% 1,000 ML IV STA (03:12)
[2018-07-23 03:24] LABS: URINE BACTERIA MOD (NEG); URINE EPITHELIAL CELLS 0 - 2 /hpf (0-5); URINE WBC 15 - 20 /hpf (0-6)
[2018-07-23 05:03] VITALS: BMI 20.7
--- NOTE | 2018-07-23 11:09 | RAD ---
Date of service: 07/23/2018 PROCEDURE: CHEST RADIOGRAPH, 1 VIEW HISTORY: syncope COMPARISON: 05/14/2018 FINDINGS: LUNGS: Bilateral diffuse opacity, possible pneumonia. Follow-up advised. No focal consolidation. PLEURA: No pneumothorax or pleural fluid seen. CARDIOVASCULAR: Normal heart size. CABG. Permanent pacemaker. No congestive change. OSSEOUS STRUCTURES: No significant abnormalities. VISUALIZED UPPER ABDOMEN: Normal. OTHER FINDINGS: None. IMPRESSION: Diffuse bilateral opacity common nonspecific. Possible pneumonia. Follow-up advised.
--- NOTE | 2018-07-23 15:18 | CARD ---
APPROVED REPORT Date of service: 07/23/2018 EKG Measurement Heart [id number] <Conclusion> Demand pacemaker, interpretation is based on intrinsic rhythm Atrial fibrillation with premature ventricular or aberrantly conducted complexes Left bundle branch block Abnormal ECG
--- NOTE | 2018-07-23 16:11 | CT ---
Date of service: 07/23/2018 PROCEDURE: CT Chest without contrast HISTORY: sob COMPARISON: 10/30/2015 TECHNIQUE: Contiguous axial images were obtained through the chest without intravenous contrast enhancement. Sagittal and coronal reconstructions were performed. Radiation dose (DLP): 261.49 mGy-cm. This CT exam was performed using one or more of the following dose reduction techniques: Automated exposure control, adjustment of the mA and/or kV according to patient size, and/or use of iterative reconstruction technique. FINDINGS: LUNGS: No infiltrate. Minimal linear scar/atelectasis in right and left lower lobe and in the lingula. Evaluation of the lung parenchyma is limited by respiratory motion artifact. No pulmonary mass. MEDIASTINUM: Unremarkable thoracic aorta. No aneurysm. Cardiomegaly. Aortic valve replacement.. Mild dilatation of the main pulmonary artery to a 3.5 cm diameter. There is a lobulated left lateral contour of the main pulmonary artery just distal to the pulmonic valve, of uncertain significance. It is unchanged in appearance compared to 10/30/2015. Correlation with echocardiography is advised. No lymphadenopathy. PLEURA: No pleural fluid. No pneumothorax. BONES: No fracture. No destructive lesion. UPPER ABDOMEN: Grossly unremarkable. OTHER FINDINGS: None. IMPRESSION: No pulmonary infiltrate. Dilatation of main pulmonary artery which may correlate with pulmonary arterial hypertension. Lobulated contour of main pulmonary artery just distal to the pulmonic valve. Uncertain significance. No change from 2015. Correlate with echocardiography. Aortic valve replacement. Cardiomegaly.
--- NOTE | 2018-07-23 17:36 | CT ---
Date of service: 07/23/2018 PROCEDURE: CT left hip HISTORY: left hip pain COMPARISON: Not available TECHNIQUE: 2.5 mm contiguous axial sections were acquired through the left hip. Sagittal and coronal images were reformatted from the axial scan. Total exam DLP: 279.30 mGy-cm. This CT exam was performed using 1 or more of the following dose reduction techniques: Automated exposure control, adjustment of the mA and/or kV according to patient size, and/or use of iterative reconstruction technique. FINDINGS: There is no evidence of fracture. There is no lytic or blastic osseous lesion. There is mild narrowing of the joint space with subchondral sclerosis of the femoral head. There are no articular erosions. Findings consistent with mild osteoarthritis. No soft tissue abnormality is appreciated. IMPRESSION: No acute fracture. Mild osteoarthritis. Otherwise unremarkable. The preliminary findings for this examination were reported by [facility] Rad[facility] at 3:09 a.m. on 07/23/2018. There is concurrence of this report with the preliminary findings.
--- NOTE | 2018-07-23 17:50 | CT ---
Date of service: 07/23/2018 PROCEDURE: CT HEAD WITHOUT CONTRAST. HISTORY: syncope COMPARISON: 05/14/2018 TECHNIQUE: Axial computed tomography images were obtained through the head/brain without intravenous contrast. Radiation dose: Total exam DLP = 886.60 mGy-cm. This CT exam was performed using one or more of the following dose reduction techniques: Automated exposure control, adjustment of the mA and/or kV according to patient size, and/or use of iterative reconstruction technique. FINDINGS: HEMORRHAGE: No intracranial hemorrhage. BRAIN: No mass effect or edema. Mild diffuse age-appropriate cerebral atrophy. Mild patchy periventricular and deep/subcortical white matter lucency consistent with chronic microvascular ischemic change. There is a left periatrial lacunar infarct, unchanged. There is no evidence of acute infarct. VENTRICLES: Unremarkable. No hydrocephalus. CALVARIUM: Unremarkable. PARANASAL SINUSES: Unremarkable as visualized. No significant inflammatory changes. MASTOID AIR CELLS: Unremarkable as visualized. No inflammatory changes. OTHER FINDINGS: None. IMPRESSION: No intracranial mass, hemorrhage or evidence of acute infarct. The preliminary findings for this examination were reported by [facility] Radiology at 2:57 a.m. on 07/23/2018. There is concurrence of this report with the preliminary findings.
[2018-07-23] MEDS: Aztreonam 1 Gm in NS 100mL 100 ML IVPB SCH ×2 (20:00→21:32)
--- NOTE | 2018-07-23 21:08 | US ---
PROCEDURE: Bilateral carotid artery duplex ultrasound HISTORY: Carotid stenosis PHYSICIAN(S): Byron Lui MD. TECHNIQUE: Duplex sonography and color-flow Doppler of the right carotid artery was performed. The patient did not cooperate to completion of the left sided exam FINDINGS: There is mild smooth heterogeneous plaque noted at the carotid bifurcations bilaterally. The peak systolic velocity in the proximal right internal carotid artery is 99 cm/sec. This corresponds to a 20 to 39% proximal right ICA stenosis. Normal systolic velocities are noted in the proximal right external carotid artery. There is antegrade flow in the right vertebral artery. Mild plaque is also noted on the left. Velocities could not be obtained. IMPRESSION: 1. 20-39 percent proximal right ICA stenosis 2. The patient did not cooperate to allow completion of the left sided study
--- NOTE | 2018-07-24 00:09 | HP ---
DATE OF EXAM: 07/23/2018 HISTORY OF PRESENT ILLNESS: The patient is 87 years old, known to me from multiple previous admissions. The patient is somewhat confused; however, she wants to go home. When I enquired about what happened, she said " I fell and I feel fine, I want to go home." According to family, she has been ambulatory at home and she lives on her own. Family was trying to get in touch with her. When they were calling her, she did not answer. So they came to check on her and they found her on the floor. She states she fell, she soiled herself with the urine, so family got concerned and called ambulance. She states she was brought to the emergency room. PAST MEDICAL HISTORY: Significant for: 1. Coronary artery disease. 2. Hypertension. 3. Dementia. 4. Status post aortic valve replacement. 5. Status post mitral valve replacement. 6. History of renal mass. 7. Hypothyroidism. 8. Mild dementia. 9. Status post left renal mass, biopsy was done in April and she was found to have renal cell carcinoma. ALLERGIES: SHE IS ALLERGIC TO ASPIRIN AND PENICILLIN. MEDICATION AT HOME: She is on Lasix 40 mg daily, metoprolol 25 mg twice a day, losartan 25 mg daily, Aricept 5 mg at bedtime, simvastatin 10 mg daily, potassium 20 mEq daily, Remeron 15 mg daily, Lamictal 100 mg twice a day. SOCIAL HISTORY: She used to be a smoker in the past, does not smoke anymore. PHYSICAL EXAMINATION GENERAL: She is sleepy, but arousable. VITAL SIGNS: She is afebrile. Pulse 78, respirations 18, blood pressure 133/70. LUNGS: Bilateral fair airflow. No rhonchi or crackles. HEART: S1 and S2 audible. ABDOMEN: Soft and nontender. No rebound. No guarding. NEUROLOGIC: She is sleepy, but arousable. Moves all extremities. LABORATORY DATA: WBC is 10.1, hemoglobin 10, hematocrit 31.8, platelets 511. PT 31.1, INR 2.67. Chemistry: Sodium 143, potassium 4.1, chloride 101, CO2 27, BUN 16, creatinine 1.3, blood sugar 148, magnesium 2.4, alk phos 447, ammonia less than 9. Urine positive for moderate blood and nitrates, wbc is 15 to 20. Urine drug screen is negative. ASSESSMENT AND PLAN: 1. Status post fall. 2. Possible pneumonia. 3. History of hypertension. 4. Aortic valve replacement. 5. Mitral valve replacement. 6. Renal cell carcinoma. PLAN: We will start the patient on antibiotic. I will order for carotid Doppler. Resume her medication. I will order for CT of the chest to see if this is pneumonia or atelectasis and follow up the patient in the a.m. Charito Dale MD
--- NOTE | 2018-07-24 00:16 | CON ---
DATE: 07/23/2018 HISTORY OF PRESENT ILLNESS: This is an 87-year-old female with the past medical history of hypertension, coronary artery disease, dementia, status post pacemaker, and came to the emergency room. The patient was found at home on the floor and patient urinated on herself. No tongue bite. Called to evaluate the patient. PAST MEDICAL HISTORY: Dementia, hypertension, coronary artery disease, pacemaker, aortic valve replacement, and left renal mass. REVIEW OF SYSTEMS: Ten-point review of systems was negative. ALLERGIES: ALLERGIC TO ASPIRIN, PENICILLIN, AND FISH ALLERGY. HOME MEDICATION: The patient is on Aricept, simvastatin, Lamictal, losartan, and metoprolol. PHYSICAL EXAMINATION: HEENT: Normocephalic, atraumatic. NECK: Supple. NEUROLOGIC: Awake, oriented to self. Cranial nerves II through XII were tested. Pupils reactive. EOM intact. Visual field full. No facial asymmetry. Tongue in the midline. Motor examination: Spontaneous movement of extremities noted. Deep tendon reflexes are 1+. Both plantars are downgoing. Sensory appears intact. Cerebellar, gait deferred. LABORATORY DATA: CAT scan of the head was done, shows atrophy and dilatation of the ventricles secondary to atrophy and microvascular disease. Workup in progress. Continue present management. We will followup. Gerardo Becerra MD
[2018-07-24] MEDS: Aztreonam 1 Gm in NS 100mL 100 ML IVPB SCH ×3 (00:31→15:43)
[2018-07-24] MEDS: Dextrose 5%/0.45% NS 1,000 ML IV SCH (06:56)
[2018-07-24 07:43] LABS: CALCIUM 8.8 mg/dL (8.4-10.5)
[2018-07-24] MEDS ORDERED: Aztreonam 1 Gm in NS 100mL 100 ML IVPB STA (09:21)
--- NOTE | 2018-07-24 10:10 | CP.PCM.CON ---
History of Present Illness - History of Present Illness History of Present Illness: Wicho Katarzyna PGY2 Heme/Onc Consult Note for Dr. Walter Ms. Knight is an 87-year-old female with a PMH of renal cell carcinoma (clear cell) diagnosed 05/09/18, A. fib s/p pacemaker, AVR, MVR, CAD, HTN, dementia and hypothyroidism who presented to the ED status post fall. Heme/Onc was consulted due to the patient's history of RCC. The patient was diagnosed in 04/2018 with a 6 cm left renal mass with which biopsy she was positive for renal cell carcinoma, clear cell type with necrosis. At that time, the patient's uro-oncologist deemed that the tumor was nonresectable surgically. The patient has not yet been treated due to a pending PET/CT. Per nurse, family members have stated that the PET/CT was ordered for later this afternoon. When evaluated, the patient was agitated, and refused to participate in the HPI and exam. HPI and 12 point ROS were attempted but were limited due to regis tation. Below information was obtained from prior chart check. VS and labs were reviewed. Monitor shows atrial fibrillation with HR ranging from 70-110. No leukocytosis is noted, but patient is anemic with microcytic anemia. UA showed positive nitrates and small leukocyte esterases. Per nursing staff, the patient was initially pulling out her IV, and antibiotic therapy was delayed as a result. The patient is in restraints for her behavior. PMH: As above PSH: None Meds: Reviewed, as per MAR Allergies: Aspirin and penicillin SHx: Former smoker, denies alcohol and drug use FHx: Noncontributory Review of Systems - Review of Systems Systems not reviewed;Unavailable: Uncooperative Past Patient History - Infectious Disease Hx of Infectious Diseases: None - Tetanus Immunizations Tetanus Immunization: Unknown - Past Medical History & Family History Past Medical History?: Yes - Past Social History Smoking Status: Former Smoker Alcohol: None Drugs: Denies - CARDIAC Hx Cardiac Disorders: Yes Hx Congestive Heart Failure: Yes Hx Hypertension: Yes - PULMONARY Hx Respiratory Disorders: No - NEUROLOGICAL Hx Neurological Disorder: Yes Hx Seizures: Yes - HEENT Hx HEENT Problems: No - RENAL Hx Chronic Kidney Disease: No - ENDOCRINE/METABOLIC Hx Diabetes Mellitus Type 2: Yes Hx Hypothyroidism: Yes - HEMATOLOGICAL/ONCOLOGICAL Hx Blood Disorders: No - INTEGUMENTARY Hx Dermatological Problems: No - MUSCULOSKELETAL/RHEUMATOLOGICAL Hx Falls: No - GASTROINTESTINAL Hx Gastrointestinal Disorders: Yes - GENITOURINARY/GYNECOLOGICAL Hx Genitourinary Disorders: No - PSYCHIATRIC Hx Psychophysiologic Disorder: No Hx Depression: No Hx Emotional Abuse: No Hx Physical Abuse: No Hx Substance Use: No - SURGICAL HISTORY Hx Cardiac Catheterization: Yes Hx Gastric Bypass Surgery: Yes Hx Open Heart Surgery: Yes Hx Orthopedic Surgery: Yes (right hip fx 2 pins) Other/Comment: valve replacement - ANESTHESIA Hx Anesthesia: Yes Hx Anesthesia Reactions: No Hx Malignant Hyperthermia: No Meds Allergies/Adverse Reactions: Allergies Allergy/AdvReac Type Severity Reaction Status Date / Time aspirin Allergy Intermediate PAIN Verified 07/23/18 00:24 Penicillins Allergy Mild ITCHING Verified 07/23/18 00:24 FISH Allergy ITCHING Verified 07/23/18 00:24 - Medications Medications: Current Medications Acetaminophen (Tylenol 325mg Tab) 650 mg PO Q4H PRN PRN Reason: Pain, Mild (1-3) Last Admin: 07/23/18 11:35 Dose: 650 mg Donepezil HCl (Aricept) 5 mg PO HS [facility] Last Admin: 07/23/18 21:30 Dose: Not Given Dextrose/Sodium Chloride (Dextrose 5%/0.45% Ns 1000 Ml) 1,000 mls @ 100 mls/hr IV .Q10H [facility] Last Admin: 07/24/18 06:56 Dose: 100 mls/hr Aztreonam (Azactam 1 Gm) 100 mls @ 100 mls/hr IVPB Q8 [facility]; Protocol Stop: 07/24/18 14:59 Lamotrigine (Lamictal) 100 mg PO BID [facility]; Protocol Last Admin: 07/23/18 21:36 Dose: Not Given Losartan Potassium (Cozaar) 25 mg PO DAILY [facility] Last Admin: 07/23/18 11:35 Dose: 25 mg Metoprolol Tartrate (Lopressor) 25 mg PO BID [facility] Last Admin: 07/23/18 21:30 Dose: Not Given Mirtazapine (Remeron) 15 mg PO DAILY [facility] Last Admin: 07/23/18 11:35 Dose: 15 mg Warfarin Sodium (Coumadin) 2 mg PO 1800 [facility]; Protocol Last Admin: 07/23/18 21:32 Dose: 2 mg Physical Exam - Constitutional Appears: Non-toxic, No Acute Distress - Head Exam Head Exam: NORMAL INSPECTION - Eye Exam Eye Exam: Normal appearance - ENT Exam ENT Exam: Mucous Membranes Moist - Neck Exam Neck exam: Positive for: Normal Inspection - Respiratory Exam Respiratory Exam: NORMAL BREATHING PATTERN - Cardiovascular Exam Cardiovascular Exam: Irregular Rhythm - GI/Abdominal Exam GI & Abdominal Exam: Soft. absent: Distended, Tenderness - Extremities Exam Extremities exam: Positive for: normal inspection. Negative for: pedal edema - Neurological Exam Neurological exam: Alert - Psychiatric Exam Psychiatric exam: Agitated - Skin Skin Exam: Warm Results - Vital Signs Recent Vital Signs: Last Vital Signs Temp 98.4 F 07/24/18 06:00 Pulse 91 H 07/24/18 06:00 Resp 20 07/24/18 06:00 BP 110/75 07/24/18 06:00 Pulse Ox 98 07/24/18 06:00 - Labs Result Diagrams: 07/23/18 00:45 07/24/18 07:20 Labs: Laboratory Results - last 24 hr 07/24/18 07:20 Sodium 141 Potassium 3.3 L Chloride 103 Carbon Dioxide 27 Anion Gap 14 BUN 22 H Creatinine 1.5 H Est GFR ( Amer) 40 Est GFR (Non-Af Amer) 33 Random Glucose 110 Calcium 8.8 Assessment & Plan - Assessment and Plan (Free Text) Assessment: 87-year-old female with a PMH of renal cell carcinoma (clear cell) diagnosed 05/09/18, A. fib s/p pacemaker, AVR, MVR, CAD, HTN, dementia and hypothyroidism who presented to the ED status post fall. The patient is being treated currently with antibiotic therapy for a suspected UTI and is being evaluated by Neurology. CT head, Carotid US and EEG are being conducted to r/o neurological causes. There is nothing acute with respect to her hx of RCC except in obtaining a plan for PET/CT. Plan: - cont evaluation and management per neurology recs - cont management per primary team - PT eval recommending TCU - obtain PET/CT or results of it if done - further recs per Dr. Walter Case was reviewed and discussed with attending, Dr. Saba Colón PGY2
--- NOTE | 2018-07-24 14:13 | PN ---
DATE: 07/24/2018 NEUROLOGY FOLLOWUP CHIEF COMPLAINT: Followup for questionable syncope. SUBJECTIVE: The patient is seen and examined at bedside. She definitely has moderate cognitive impairment/dementia. She is unaware where she is. Her history is very limited. EEG showed mild bilateral cerebral dysfunction. No evidence of any epileptiform activity. PAST MEDICAL HISTORY: Coronary artery disease, hypertension, status post aortic valve, status post mitral valve, history of renal mass, hypothyroidism, mild dementia, status post left renal mass biopsy was done in 04/2018, she was found to have renal cell carcinoma. ALLERGIES: ALLERGIC TO ASPIRIN AND PENICILLIN. MEDICATIONS: Reviewed by nurses' reconciliation sheet. SOCIAL HISTORY: No illicit drug use, smoking, EtOH abuse. She was a former smoker in the past. FAMILY HISTORY: Noncontributory. LABORATORY DATA: Sodium is 141, potassium is 3.3, chloride of 103, carbon dioxide of 27, BUN of 22, creatinine of 1.5, random glucose of 110. PHYSICAL EXAMINATION: VITAL SIGNS: Temperature 98.4, pulse rate of 87, blood pressure of 124/60, respiratory rate of 20, oxygen saturation 98% by room air. GENERAL: The patient is sitting up in bed, in no acute distress. HEENT: Atraumatic, normocephalic. PERRLA. Extraocular muscles intact. NECK: Supple. No JVD, no adenopathy noted. LUNGS: Clear to auscultation. No adventitious sounds. HEART: S1, S2. Normal rate and rhythm. No murmurs, rubs or gallops. ABDOMEN: Soft, nontender and nondistended. Bowel sounds are present. EXTREMITIES: No clubbing. No cyanosis. Peripheral pulses 2+ felt bilaterally. NEUROLOGIC: The patient is alert and oriented to person and place, not much to month or year. Recall after 5 minutes is 0/3. Poor attention span. Slow thought process. Poor judgment and poor insight. Cranial nerves II through XII intact. Motor exam: Slight increased tone throughout. Moves all extremities equally. No pronator drift seen. Sensory exam: Light touch, pinprick, proprioception and vibration are intact. DTRs are 2+ throughout, 1 at both knees and ankles. Coordination: [id number] intact. No dysmetria noted. Gait is deferred for now. ASSESSMENT AND PLAN: This is an 87-year-old woman with history of aortic valve and mitral valve replacement, history of hypertension, history of right renal mass, diagnosed with renal cell carcinoma. Came in status post fall, unaware how she fell. She has been found in a puddle of urine. She denies any history of any syncope. She is definitely deconditioned and has evidence of neuropathy on the examination, which she indicated to her poor balance. At this time, her EEG showed bilateral cerebral dysfunction. No evidence of any epileptiform activity. Unlikely a seizure. Recommend to, 1. Continue with her Aricept 10 mg at bedtime instead of 5. 2. Continue with Lamictal 400 mg p.o. b.i.d. for her behavioral issues and Remeron for sleep. 3. Monitor electrolytes and correct accordingly. 4. Physical Therapy/Occupational Therapy evaluation and delirium precautions. Once again, follow up with Oncology in regards to her history of renal cell carcinoma. Thank you for this followup. Jaycob Becerra MD
--- NOTE | 2018-07-24 15:39 | PN ---
DATE: 07/24/2018 SUBJECTIVE: The patient is 87 years old, seems to be somewhat confused, disoriented, was very agitated last night, had wrist restraint. PHYSICAL EXAMINATION: GENERAL: She is awake and alert, somewhat confused. VITAL SIGNS: She is afebrile, pulse 91, respirations 20, blood pressure 115/75. LUNGS: Bilateral fair airflow. No rhonchi or crackle. HEART: S1 and S2 audible. No murmur. ABDOMEN: Soft, nontender. No rebound, no guarding. NEUROLOGICAL: The patient is awake and alert, confused. As per rehab nursing tech, she is well this morning. LABORATORY DATA: Chemistry: Sodium 141, potassium 3.3, chloride 103, CO2 of 27, BUN 22, creatinine 1.5, blood sugar of 110. Blood cultures are negative. Urine culture shows gram-negative rods. CT scan of the chest negative for infiltrate. ASSESSMENT: 1. Status post fall. 2. Urinary tract infection. 3. History of renal mass. 4. Hypertension. 5. Status post aortic valve replacement. 6. Mitral valve replacement. 7. Chronic atrial fibrillation. 8. History of seizures. PLAN: Her potassium is being supplemented. We will give her one dose of Risperdal and then we will continue her on IV fluids. We will follow up this patient in a.m. Charito Dale MD
--- NOTE | 2018-07-24 15:46 | EEG ---
Copied To: Jaycob Becerra MD Attending MD: Jaycob Becerra MD DATE: 07/24/2018 CONDITION OF THE RECORDING: Drowsy. DIAGNOSIS: Syncope. MEDICATIONS: Reviewed by nurses' reconciliation sheet. INTERPRETATION: This is a 16-channel [employer] recording. The background activity of this tracing was composed of 6 to 7 cycles per second. There was a small amount of beta activity of 16 to 20 cycles per second seen in this recording. There was increased amount of theta activity of 5 to 7 cycles per seconds seen in this tracing. Drowsiness was characterized by mixed beta and theta activities. Sleep was characterized by vertex transient waves, sleep spindles, and bilateral slowing. Photic stimulation showed no changes in the tracing. No paroxysmal activity is noted in this recording. CONCLUSION: This is an abnormal electroencephalogram due to presence of mild diffuse slowing throughout the recording consistent with mild bilateral cerebral dysfunction. No evidence of any epileptiform activity. Please clinically correlate. Jaycob Becerra MD
[2018-07-25] MEDS: Dextrose 5%/0.45% NS 1,000 ML IV SCH (03:19)
[2018-07-25 06:55] LABS: BASO # 0.03 K/mm3 (0.0-2.0); BASO % 0.4 % (0.0-3.0); EOS # 0.5 (0.0-0.7); GRAN # 5.67 (1.4-6.5); GRAN % 71.3 % (50.0-68.0); HEMOGLOBIN 8.7 g/dL (12.0-16.0); LYMPH # 1.1 (1.2-3.4); LYMPH % 13.6 % (22.0-35.0); MEAN CELL VOLUME 78.6 fl (80.0-105.0); MEAN CORPUSCULAR HEMOGLOBIN 24.2 pg (25.0-35.0); MEAN CORPUSCULAR HGB CONC 30.7 g/dl (31.0-37.0); MEAN PLATELET VOLUME 8.5 fl (7.0-11.0); MONO # 0.7 (0.1-0.6); MONO % 8.7 % (1.0-6.0); RBC 3.6 10^6/uL (3.5-6.1)
[2018-07-25 07:18] LABS: ALB/GLOB RATIO 0.9 (1.1-1.8); ALBUMIN 3.7 g/dL (3.0-4.8); CALCIUM 8.7 mg/dL (8.4-10.5)
--- NOTE | 2018-07-25 09:11 | CP.PCM.PN ---
Subjective - Date & Time of Evaluation Date of Evaluation: 07/25/18 Time of Evaluation: 07:31 - Subjective Subjective: Wicho Colón PGY2 Heme/Onc Progress Note for Dr. Walter Patient was seen and examined at bedside. She remains uncooperative with the exam. She is more calm today but still a poor historian. HPI and ROS were l imited. Nursing and SW notes, and VS and labs were reviewed. Objective - Vital Signs/Intake and Output Vital Signs (last 24 hours): Temp Pulse Resp BP Pulse Ox 98.4 F 90 18 126/68 96 07/25/18 06:00 07/25/18 06:00 07/25/18 06:00 07/25/18 06:00 07/25/18 06:00 Intake and Output: 07/25/18 07/25/18 06:59 18:59 Intake Total 2500 Output Total 600 Balance 1900 - Medications Medications: Current Medications Acetaminophen (Tylenol 325mg Tab) 650 mg PO Q4H PRN PRN Reason: Pain, Mild (1-3) Last Admin: 07/23/18 11:35 Dose: 650 mg Donepezil HCl (Aricept) 5 mg PO HS [facility] Last Admin: 07/24/18 22:00 Dose: Not Given Dextrose/Sodium Chloride (Dextrose 5%/0.45% Ns 1000 Ml) 1,000 mls @ 100 mls/hr IV .Q10H [facility] Last Admin: 07/25/18 03:19 Dose: 100 mls/hr Lamotrigine (Lamictal) 100 mg PO BID [facility]; Protocol Last Admin: 07/24/18 13:20 Dose: Not Given Losartan Potassium (Cozaar) 25 mg PO DAILY [facility] Last Admin: 07/24/18 13:19 Dose: Not Given Metoprolol Tartrate (Lopressor) 25 mg PO BID [facility] Last Admin: 07/24/18 13:20 Dose: Not Given Mirtazapine (Remeron) 15 mg PO DAILY [facility] Last Admin: 07/24/18 13:20 Dose: Not Given Risperidone (Risperdal Tab) 0.25 mg PO DAILY [facility]; Protocol Warfarin Sodium (Coumadin) 2 mg PO 1800 [facility]; Protocol Last Admin: 07/23/18 21:32 Dose: 2 mg - Labs Labs: 07/25/18 06:30 07/25/18 06:30 PT 31.1 SECONDS (9.4-12.5) H 07/23/18 00:45 INR 2.67 07/23/18 00:45 APTT 40.7 Seconds (25.1-36.5) H 07/23/18 00:45 - Additional Findings Additional findings: - Constitutional Appears: Non-toxic, No Acute Distress - Head Exam Head Exam: NORMAL INSPECTION - Eye Exam Eye Exam: Normal appearance - ENT Exam ENT Exam: Mucous Membranes Moist - Neck Exam Neck exam: Positive for: Normal Inspection - Respiratory Exam Respiratory Exam: NORMAL BREATHING PATTERN - Cardiovascular Exam Cardiovascular Exam: Irregular Rhythm - GI/Abdominal Exam GI & Abdominal Exam: Soft. absent: Distended, Tenderness - Extremities Exam Extremities exam: Positive for: normal inspection. Negative for: pedal edema - Neurological Exam Neurological exam: Alert - Psychiatric Exam Psychiatric exam: Agitated - Skin Skin Exam: Warm Assessment and Plan - Assessment and Plan (Free Text) Assessment: 87-year-old female with a PMH of renal cell carcinoma (clear cell) diagnosed 05/09/18, A. fib s/p pacemaker, AVR, MVR, CAD, HTN, dementia and hypothyroidism who presented to the ED status post fall. The patient is being treated currently with antibiotic therapy for a suspected UTI and is being evaluated by Neurology. There is nothing acute with respect to her hx of RCC until PET/CT is done. Plan: - cont evaluation and management per neurology recs - cont management per primary team - PT eval recommending TCU - obtain PET/CT or results of it if done - further recs per Dr. Walter Case was reviewed and discussed with attending, Dr. Saba Colón PGY2
[2018-07-25] MEDS ORDERED: MEROPENEM 500 MG in NS 500 MG/50 ML BAG IVPB SCH (11:30)
--- NOTE | 2018-07-25 16:48 | PCM.EEG ---
Electroencephalogram Report - Electroencephalogram Report Procedure Date: 07/24/18 Condition of Recording: Awake, Drowsy Medication: Aricep, Lamotrigine, Risperdal, Mirtazepine Interpretation: EEG Detail: During active states, the EEG contained symmetric 10-20 Hz,20-30 uV activity seen bi-frontally. . During resting wakefulness there was a symmetric posterior dominant rhythm at 7.5 Hz, 30-50 uV, which was reactive to eye opening and closing. . Drowsiness was associated with fragmentation of the posterior dominant rhythm and with slow roving eye movements. There was intermittent bi frontal slowing. Hyperventilation was not performed. Photic stimulation was performed and there were no changes on the record. Interictal activity; none Focal abnormality; none Impression: Impression: This is an abnormal EEG record that demonstrate the presence of a mild non specific diffuse disturbance of cortical activity, this is keeping with a diffuse fowler matter dysfunction, these findings re not specific. No Seizures, NO interictal activity.
[2018-07-25] MEDS ORDERED: Dextrose 5%/0.45% NS 1,000 ML IV SCH (17:10)
--- NOTE | 2018-07-25 17:47 | PN ---
DATE: 07/25/2018 SUBJECTIVE: The patient is 87 years old, seen and examined. Seemed to be confused, disoriented. She thinks she is at home and has a home health aide is about to come. Eating fair. Was confused and disoriented this morning. PHYSICAL EXAMINATION: VITAL SIGNS: She is afebrile, pulse 62, respirations 16, blood pressure 114/60. LUNGS: Bilateral fair airflow. No rhonchi or crackle. HEART: S1 and S2 audible. ABDOMEN: Soft. Nontender. No rebound. No guarding. NEUROLOGICAL: The patient is awake and alert, disoriented with time and person and place. EXTREMITIES: Bilateral leg, no edema. LABORATORY EXAM: WBC 8, hemoglobin 8.7, hematocrit 28.3, platelet of 451. Chemistry: Sodium 140, potassium 3.6, chloride 106, CO2 of 26, BUN 13, creatinine 1.3, blood sugar of 112. Urine tox is negative. Urine culture positive for E. coli, sensitive to only meropenem. ASSESSMENT: 1. Status post fall. 2. Altered mental status. 3. Dementia. 4. History of renal mass with altered mental status. 5. Escherichia coli urinary tract infection. 6. History of renal mass. 7. History of hypertension. 8. Dementia. PLAN: Currently, the patient is on meropenem. We will continue Coumadin. The patient is eating fair. I will cut down her fluids to 50 mL/hour. She is only eating 50% of her portion. The patient will be reevaluated in the a.m. and if she feels better mentally, she will be discharged and sent to TCU for rehab and completion of antibiotic. Charito Dale MD
--- NOTE | 2018-07-25 22:43 | CON ---
DATE OF CONSULT: 07/25/2018 HISTORY OF PRESENT ILLNESS: The patient is an 87-year-old female with multiple medical issues including renal cell carcinoma recently diagnosed a few months ago and dementia, who was admitted after she presented to the ER status post fall. During her evaluation, the patient was agitated, refused to participate in the assessment and has been refusing the medication, and apparently she tried to pull out IV catheter as well as Roman catheter and required restraint. Psychiatry has been consulted due to the patient's combative behavior. I met with the patient at [facility] and she has been professionally cooperative with my interview. The patient is aware that she is at [facility], and although she initially indicates that it is January, she correctly tells me that it is July 2018 a few minutes later when I ask her again. The patient's focus varies during the course of my questioning, and her response is not entirely credible due to her inconsistent focus. She denies any depression, denies any paranoia, denies any hallucinations, although she does not remember being uncooperative with staff members, she does not want to discuss her behavior with me. The patient tells me that she cannot tell me, and then she refers to her children and in which case she is illogical, and it is unclear why she was referring to her children, but she is disorganized and forgetful in this respect and clearly requires some intervention for her presentation at this time. Her insight and judgement are poor. PSYCHIATRIC HISTORY: The patient does not have any formal psychiatric history. SOCIAL HISTORY: The patient was born in [place]. She is not . She indicates she has four children, and she lives by herself in senior housing. The patient also has [facility] services Tuesday through Tuesday. CURRENT PSYCHIATRIC MEDICATIONS: Include Lamictal 100 mg b.i.d., Aricept 5 mg h.s., Remeron 15 mg daily, Risperdal 0.25 mg daily. IMPRESSION: Dementia, rule out effects of delirium. RECOMMENDATIONS: 1. At this time, we will switch Remeron to 15 mg at night as 15 mg daily dose can cause orthostasis and falls and lethargy. 2. We will discontinue Risperdal and start Haldol 0.25 mg daily with 0.5 mg p.r.n. with Ativan., and Psychiatry will continue to follow the patient and monitor her mental status and intolerance to medication. Jacqui Rosario MD
[2018-07-25] MEDS: MEROPENEM 500 MG in NS 500 MG/50 ML BAG IVPB SCH (22:50)
[2018-07-26] MEDS: MEROPENEM 500 MG in NS 500 MG/50 ML BAG IVPB SCH ×3 (06:03→21:33)
[2018-07-26 19:03] LABS: INR 1.89; PROTHROMBIN TIME 21.8 SECONDS (9.4-12.5)
--- NOTE | 2018-07-27 03:05 | PN ---
DATE: 07/25/2018 IDENTIFICATION INFORMATION: The patient is an 87-year-old female with a history of dementia who is admitted with multiple medical problems including a renal cell carcinoma of recent diagnosis who had come to the emergency room after having fallen. In the emergency room she was agitated and not cooperating with interview. I have reviewed Dr. Rosario's observation of yesterday about her fluctuating cognitive status. She then is now denied mood disturbance or psychotic ideation. She reported she does not have a formal psychiatric history. She is a [place]. She is not . She reportedly lives by herself in senior citizen's housing. She does have four children. Dr. Dale her site inspector found her confused this morning with disorientation. The patient also has a urinary tract infection and a history of hypertension. Nursing feels that she is more alert today. She is alert and oriented to two spheres. She is able to follow commands, but she cannot say why she is hospitalized. She is being maintained on Aricept 5 mg, Ativan p.r.n. for agitation, Haldol p.r.n. for agitation and 0.25 mg daily, Lamictal 100 mg b.i.d. She is also on Lopressor, and Cozaar for hypertension, and Coumadin. Blood pressure is 110/62, pulse 64, temperature 98.2. Laboratory results reviewed. The patient will be followed by Psychiatry as needed. Dev Cardona MD/ PhD
[2018-07-27] MEDS: MEROPENEM 500 MG in NS 500 MG/50 ML BAG IVPB SCH ×3 (06:32→21:01)
[2018-07-27 07:02] LABS: INR 1.69; PROTHROMBIN TIME 19.7 SECONDS (9.4-12.5)
--- NOTE | 2018-07-27 09:23 | CP.PCM.PCO ---
Physician Communication Note - Physician Communication Note Physician Communication Note: psychiatry signed off, reconsult as needed see 's note
--- NOTE | 2018-07-27 10:10 | CP.PCM.PN ---
Subjective - Date & Time of Evaluation Date of Evaluation: 07/27/18 Time of Evaluation: 07:10 - Subjective Subjective: Wicho Colón PGY2 Heme/Onc Progress Note for Dr. Walter Patient was seen and examined at bedside. She is more calm today although she is a not a great historian. HPI and ROS were limited because of this. Per nursing staff, the patient has blood-tinged urine in her díaz bag. I requested UA and that the PMD would be contacted. There is no other overnight events. There have been no updates concerning the patient's PET/CT and she will need to have it done as an outpatient after discharge. Objective - Vital Signs/Intake and Output Vital Signs (last 24 hours): Temp Pulse Resp BP Pulse Ox 98.6 F 66 20 115/61 97 07/26/18 22:39 07/26/18 22:39 07/26/18 22:39 07/26/18 22:39 07/26/18 22:39 - Medications Medications: Current Medications Acetaminophen (Tylenol 325mg Tab) 650 mg PO Q4H PRN PRN Reason: Pain, Mild (1-3) Last Admin: 07/25/18 12:28 Dose: 650 mg Donepezil HCl (Aricept) 5 mg PO HS [facility] Last Admin: 07/26/18 21:32 Dose: 5 mg Haloperidol (Haldol) 0.25 mg PO DAILY [facility]; Protocol Last Admin: 07/26/18 11:23 Dose: 0.25 mg Haloperidol (Haldol) 0.25 mg PO Q6 PRN; Protocol PRN Reason: Agitation Meropenem/Sodium Chloride (Merrem Iv 500 Mg/Ns 50 Ml) 500 mg in 50 mls @ 100 mls/hr IVPB Q8 [facility]; Protocol Last Admin: 07/27/18 06:32 Dose: 100 mls/hr Lamotrigine (Lamictal) 100 mg PO BID [facility]; Protocol Last Admin: 07/26/18 17:47 Dose: 100 mg Lorazepam (Ativan) 0.25 mg PO Q6 PRN; Protocol PRN Reason: Agitation Last Admin: 07/26/18 02:12 Dose: 0.25 mg Losartan Potassium (Cozaar) 25 mg PO DAILY [facility] Last Admin: 07/26/18 11:22 Dose: 25 mg Metoprolol Tartrate (Lopressor) 25 mg PO BID [facility] Last Admin: 07/26/18 17:48 Dose: Not Given Mirtazapine (Remeron) 15 mg PO HS [facility] Warfarin Sodium (Coumadin) 2 mg PO 1800 [facility]; Protocol Last Admin: 07/26/18 21:33 Dose: 2 mg - Labs Labs: 07/25/18 06:30 07/25/18 06:30 PT 19.7 SECONDS (9.4-12.5) H 07/27/18 06:30 INR 1.69 07/27/18 06:30 APTT 40.7 Seconds (25.1-36.5) H 07/23/18 00:45 - Additional Findings Additional findings: - Constitutional Appears: Non-toxic, No Acute Distress - Head Exam Head Exam: NORMAL INSPECTION - Eye Exam Eye Exam: Normal appearance - ENT Exam ENT Exam: Mucous Membranes Moist - Neck Exam Neck exam: Positive for: Normal Inspection - Respiratory Exam Respiratory Exam: NORMAL BREATHING PATTERN - Cardiovascular Exam Cardiovascular Exam: Irregular Rhythm - GI/Abdominal Exam GI & Abdominal Exam: Soft. absent: Distended, Tenderness - Extremities Exam Extremities exam: Positive for: normal inspection. Negative for: pedal edema - Neurological Exam Neurological exam: Alert - Skin Skin Exam: Warm Assessment and Plan - Assessment and Plan (Free Text) Assessment: 87-year-old female with a PMH of renal cell carcinoma (clear cell) diagnosed 05/09/18, A. fib s/p pacemaker, AVR, MVR, CAD, HTN, dementia and hypothyroidism who presented to the ED status post fall. The patient is being treated currently with antibiotic therapy for a suspected UTI and is being evaluated by Neurology. There is nothing acute with respect to her hx of RCC until PET/CT is done. Plan: - cont evaluation and management per neurology recs - cont management per primary team - PT eval recommending TCU - obtain outpatient PET/CT after patient is discharged - further recs per Dr. Walter Case was reviewed and discussed with attending, Dr. Saba Colón PGY2
--- NOTE | 2018-07-27 11:42 | PN ---
DATE: 07/26/2018 SUBJECTIVE: The patient is 87 years old, seen and examined, doing better. Still confused at times. Auger Operator got in touch with the patient's family, son, Fredi, who said that her mental status has been deteriorating lately and they are looking for placement. PHYSICAL EXAMINATION: GENERAL: On examination today, she is awake and alert, but confused and disoriented. VITAL SIGNS: She is afebrile, pulse 68, respirations 20, blood pressure 101/47. LUNGS: Bilateral fair airflow. No rhonchi or crackle. HEART: S1 and S2 audible. ABDOMEN: Soft. Nontender. No rebound. No guarding. NEUROLOGICAL: She is awake, alert, oriented, communicative. LABORATORY EXAM: There is no new lab available today. Today's chemistry: Sodium 140, potassium 3.6, chloride 106, CO2 of 26, BUN 13, creatinine 1.3, blood sugar of 112, alk phos is 300. Her urine is positive for E. coli. ASSESSMENT: 1. Altered mental status, underlying dementia. 2. Escherichia coli urinary tract infection. 3. History of renal malignancy. 4. Status post mitral valve replacement. 5. Status post aortic valve replacement. 6. Hypertension. PLAN: Currently, the patient is on meropenem. We will continue her on Coumadin. Follow up with the INR in the a.m. Spoke to Auger Operator. Plan is for subacute rehab to long-term placement. The patient is eating fair. We will discontinue IV fluids. We will monitor blood sugar. Follow up the patient in the a.m. Charito Dale MD
[2018-07-27] MEDS ORDERED: Sodium Chloride 0.45% 1,000 ML IV SCH (13:00)
--- NOTE | 2018-07-27 17:37 | PN ---
DATE: 07/27/2018 SUBJECTIVE: The patient is 87 years old, seen and examined. Seemed to be confused, disoriented. Does not offer any complaints. Ate very little. Urine in the bag seems to be concentrated. PHYSICAL EXAMINATION: VITAL SIGNS: She is afebrile, pulse 94, respirations 20, blood pressure 144/94. LUNGS: Bilateral fair airflow. No rhonchi or crackle. HEART: S1 and S2 audible. ABDOMEN: Soft, nontender. No rebound. No guarding. NEUROLOGICAL: Patient is awake and alert but confused, disoriented to time and place. LABORATORY DATA: Urine positive for E. coli sensitive to meropenem. SHE HAS PENICILLIN ALLERGY and she is resistant with Levaquin and Cipro. ASSESSMENT: 1. Worsening dementia. 2. Escherichia coli urinary tract infection with multidrug resistance and ALLERGY TO PENICILLIN. 3. Dehydration. 4. Mitral valve replacement. 5. Aortic valve replacement. PLAN: We will give her 4 mg Coumadin today. We will start her on small dose of IV fluid. Encourage p.o. intake. Newcomer Hostess are in the process of making subacute rehab to long-term placement. Charito Dale MD
--- NOTE | 2018-07-28 01:55 | CON ---
DATE: 07/27/2018 The patient is in 562, bed 1. CHIEF COMPLAINT: Weakness times several days. HISTORY OF PRESENT ILLNESS: This is an 87-year-old female with past medical history of coronary artery disease, hypertension, dementia, history of aortic valve replacement, history of mitral valve replacement, history of a renal mass, history of hypothyroidism and a left kidney biopsy, who is admitted because the patient was more confused than usual. The patient is now admitted with possible infection. REVIEW OF SYSTEMS: Reveals there has been no fevers, no chills. There is mild shortness of breath and no chest pain reported. No diarrhea or constipation. A 12-point review of systems is performed. PAST MEDICAL HISTORY: Significant for coronary artery disease, hypertension, dementia, renal mass, hypothyroidism, diabetes mellitus, and seizures. PAST SURGICAL HISTORY: Significant for aortic valve replacement, mitral valve replacement, left kidney biopsy, and a right hip surgery. ALLERGIES: THE PATIENT IS ALLERGIC TO PENICILLIN, ASPIRIN, AND FISH. MEDICATIONS: Medications at home are losartan, Aricept, statin. PHYSICAL EXAMINATION: On exam, the patient is in bed, in no acute distress with a temperature 98, heart rate of 94 to 110, respiratory rate of 20, blood pressure is 140/60. Examination of HEENT is unremarkable. Neck is supple. Lungs have decreased breath sounds. Heart exam, there is normal S1, S2. Abdomen examination is soft, nontender. Laboratory examination reveals a white count of 10,000 and hemoglobin of 10, platelets of 511. Chemistries reveals the creatinine is 1.3 with a GFR of 47. Urinalysis is significant with 15 to 20 WBC's, moderate bacteria. Blood cultures are negative. Urine culture is E. coli, sensitive to cefazolin and ceftriaxone, resistant to Bactrim, and resistant to quinolones. ASSESSMENT/PLAN: This is an 87-year-old female with coronary artery disease, hypertension, diabetes, dementia with, 1. Escherichia coli urinary tract infection and is allergic to penicillin. Escherichia coli is resistant to Cipro and Bactrim. No p.o. options available at this time. We are going to treat with 5 to 7 days of meropenem and case discussed with Dr. Dale. We will follow with you. Zeyad MD [facility] # [id number]
[2018-07-28] MEDS: MEROPENEM 500 MG in NS 500 MG/50 ML BAG IVPB SCH ×3 (05:09→21:29)
[2018-07-28 09:36] LABS: HEMOGLOBIN 8.6 g/dL (12.0-16.0); MEAN CELL VOLUME 77.8 fl (80.0-105.0); MEAN CORPUSCULAR HEMOGLOBIN 24.2 pg (25.0-35.0); MEAN PLATELET VOLUME 8.3 fl (7.0-11.0); RBC 3.56 10^6/uL (3.5-6.1); RED CELL DISTRIBUTION WIDTH 17.9 % (11.5-14.5); WHITE BLOOD COUNT 7.9 10^3/ul (4.5-11.0)
[2018-07-28 09:46] LABS: CALCIUM 8.8 mg/dL (8.4-10.5)
[2018-07-28 09:47] LABS: INR 2.08; PROTHROMBIN TIME 24.3 SECONDS (9.4-12.5)
--- NOTE | 2018-07-28 21:03 | PN ---
DATE: 07/28/2018 SUBJECTIVE: The patient is in bed, in no acute distress, nontoxic. PHYSICAL EXAMINATION: VITAL SIGNS: Temperature is 98, blood pressure is 96/50, respiratory rate of 22. HEENT: Unremarkable. NECK: Supple. LUNGS: Have decreased breath sounds. HEART: Normal S1, S2. ABDOMINAL: Soft. LABORATORY EXAMINATION: Reveals a white count of 7.9, hemoglobin of 8, platelets of 419. Chemistries reveals a BUN of 11, creatinine of 1.1. Urinalysis is noted. Toxicology is reviewed. Microbiology reveals E. coli in the urine. Blood cultures are no growth. E. coli in the urine is sensitive to ertapenem, ceftriaxone, and cefazolin. ASSESSMENT AND PLAN: An 87-year-old female who was seen earlier today with a history of coronary artery disease, hypertension, dementia, aortic valve replacement, mitral valve replacement, renal mass, hypothyroidism, left kidney biopsy. She was admitted with more confusion with Escherichia coli urinary tract infection ALLERGIC TO PENICILLIN, resistant to Cipro and Bactrim. No p.o. options are available on meropenem day #2 with complete 5-7 days. Meropenem was started on the 16th. Today is day #4 of 5-7 days. Zeyad Rausch MD
[2018-07-29] MEDS: MEROPENEM 500 MG in NS 500 MG/50 ML BAG IVPB SCH ×3 (06:03→21:39)
--- NOTE | 2018-07-29 13:36 | PN ---
DATE: 07/29/2018 SUBJECTIVE: Patient is 87 years old, confused and disoriented, eating fair. At times agitated. PHYSICAL EXAMINATION: VITAL SIGNS: She is afebrile, pulse 67, respiration 20, blood pressure 155/76. LUNGS: Bilateral fair airflow. No rhonchi or crackles. HEART: S1, S2, audible. ABDOMEN: Soft, nontender. No rebound. No guarding. NEUROLOGICAL: She is awake and alert, but confused and disoriented. LABORATORY DATA: No new labs available today. Her urine cultures are positive for E. coli, has multi drug resistance on meropenem. ASSESSMENT: 1. Worsening dementia. 2. Escherichia coli urinary tract infection. 3. Renal carcinoma. 4. Hypertension. 5. Hyperlipidemia. 6. Anxiety disorder. PLAN: She is eating fair, encouraged p.o. intake. Discontinue IV fluids. According to nurse, she has been pulling on it. I will order for PT/INR for tomorrow and adjust the dose and awaiting social worker aide to make arrangement for subacute rehab to [facility]. Charito Dale MD
--- NOTE | 2018-07-30 01:20 | PN ---
DATE: 07/29/2018 SUBJECTIVE: The patient is in bed, in no acute distress. PHYSICAL EXAMINATION: VITAL SIGNS: Temperature 98, blood pressure 120/70, respiratory rate 18, heart rate 67. HEENT: Unremarkable. NECK: Supple. LUNGS: Decreased breath sounds. HEART: Normal S1, S2. ABDOMINAL: Soft, nontender. LABORATORY DATA: Reveals white count is 7.9. Chemistries are noted. BUN of 11, creatinine of 1.1. Urinalysis is noted. Toxicology is noted. Microbiology reveals E. coli in the urine. Blood cultures have no growth. E. coli in the urine is relatively sensitive to ceftriaxone, ertapenem, cefazolin, and cefepime; resistant to Cipro and Bactrim. THE PATIENT IS ALLERGIC TO PENICILLIN. Review of orders reveals the patient to be on meropenem. ASSESSMENT AND PLAN: This is an 87-year-old female who was seen earlier today with a history of coronary artery disease, hypertension, dementia, aortic valve replacement, mitral valve replacement, renal mass, hypothyroidism, left kidney biopsy, admitted with more confusion than usual, was found to have Escherichia coli urinary tract infection, resistant to Cipro and Bactrim. No p.o. options are available. Today is day #5 of 5-[address] Dale's note from today is reviewed. We will follow with you. Zeyad Rausch MD
[2018-07-30] MEDS: MEROPENEM 500 MG in NS 500 MG/50 ML BAG IVPB SCH ×3 (05:47→21:39)
[2018-07-30 06:32] LABS: INR 1.9; PROTHROMBIN TIME 22.1 SECONDS (9.4-12.5)
--- NOTE | 2018-07-30 14:16 | PN ---
DATE: 07/30/2018 HISTORY OF PRESENT ILLNESS: Ms. Knight is an 87-year-old female, admitted to the hospital with urosepsis, history of E. coli in the urine. Currently being treated with IV antibiotics. She has history of renal cancer. She has left renal mass biopsied in 04/2018, history of coronary artery disease and status post aortic and mitral valve replacement. Denies any complaints right now. Sitting comfortably in the chair. No acute distress. She was agitated in the night. PAST MEDICAL HISTORY: Coronary artery disease, hypertension, renal cancer, hypothyroidism, mitral valve replacement, aortic valve replacement. ALLERGIES: ASPIRIN, PENICILLIN. HOME MEDICATIONS: Lasix, metoprolol 25 mg twice a day, losartan 25 mg daily, Aricept 5 mg at bedtime, simvastatin 10 mg daily, Remeron 15 mg daily, Lamictal 100 mg twice a day. SOCIAL HISTORY: Ex-smoker. PERSONAL HISTORY: Lives home alone. PHYSICAL EXAMINATION: GENERAL: Comfortable in chair, in no acute distress. She is alert, not oriented, not communicative. VITAL SIGNS: Afebrile, temperature 98.6; respiratory rate 15 per minute, blood pressure 130/70. HEENT: Pallor positive. NECK: No lymphadenopathy. CHEST: Air entry present and equal, bilateral. No added sounds. CARDIOVASCULAR: S1, S2 normal. No murmur. No gallop. ABDOMEN: Soft, nontender. No hepatosplenomegaly. EXTREMITY: No edema. LABORATORY DATA: White count 10.1, hemoglobin 10, hematocrit 31.8, platelet 511. INR 2.6. Sodium 143, potassium 4.1, creatinine 1.3. Urine culture positive for Klebsiella. ASSESSMENT: 1. Urosepsis. 2. Status post fall. 3. Renal cell cancer. PLAN: Currently on IV antibiotic, meropenem. Currently on Coumadin with therapeutic INR 1.9. Continue same dose Coumadin. Continue Lopressor 25 mg p.o. b.i.d, Remeron 15 mg p.o. at bedtime, 0.25 mg every 6 hours p.r.n., lorazepam. Aricept 5 mg p.o. at bedtime. Caitlyn Dilma, MD
--- NOTE | 2018-07-30 20:53 | PN ---
DATE: 07/30/2018 SUBJECTIVE: The patient is seen earlier today in 562, bed 1. The patient is in no acute distress, nontoxic. No fevers. PHYSICAL EXAMINATION: VITAL SIGNS: Temperature is 98, blood pressure is 160/80, respiratory rate 16. HEENT: Unremarkable. NECK: Supple. LUNGS: Have decreased breath sounds. HEART: Normal S1, S2. ABDOMINAL: Soft, nontender. LABORATORY EXAMINATION: Reveals a white count of 7.9 and hemoglobin of 8. BUN of 11, creatinine of 1.1. Urinalysis is noted. Microbiology reveals the urine culture is E. coli resistant to Cipro and Bactrim. Review of orders reveals the patient to be on meropenem. ASSESSMENT AND PLAN: An 87-year-old female who was seen earlier today with history of coronary artery disease, hypertension, dementia, aortic valve replacement, mitral valve replacement, renal mass, hypothyroidism, left kidney biopsy with marked , found to have Escherichia coli urinary tract infection resistant to Cipro and Bactrim. There are no p.o. options available in a patient who is ALLERGIC TO PENICILLIN. Today is day #6 of meropenem with complete 5-7 days of meropenem. Today is day #6, maybe able to discharge. No further antibiotics. Zeyad Rausch MD
[2018-07-31] MEDS: MEROPENEM 500 MG in NS 500 MG/50 ML BAG IVPB SCH ×3 (05:13→21:23)
[2018-07-31 09:15] LABS: INR 1.64
--- NOTE | 2018-07-31 12:11 | DS ---
HISTORY OF PRESENT ILLNESS: The patient is 87 years old who was brought to emergency room after she was found on the floor. According to family, she has been living by herself and has been doing well, but lately she has been increasingly confused and disoriented at times. She was recently diagnosed with renal cell carcinoma and the plan was to do PET scan, but it was never arranged since outpatient, so the patient was admitted in medical/surgical floor, was found to have UTI, currently on antibiotic. She also went into retention, so has catheter placed. PHYSICAL EXAMINATION: GENERAL: On examination today, she is confused, disoriented, eating fair. VITAL SIGNS: She is afebrile, pulse 75, respirations 22, and blood pressure 132/65. LUNGS: Bilateral fair airflow. No rhonchi or crackle. HEART: S1, S2 audible. ABDOMEN: Soft and nontender. No rebound. No guarding. NEUROLOGIC: The patient is awake and alert, but disoriented. LABORATORY EXAM: WBC 7.9, hemoglobin 8.6, hematocrit 27.7, and platelets of 419. Chemistry: Sodium 140, potassium 3.8, chloride 108, CO2 of 24, BUN 11, creatinine 1.1, blood sugar of 120. Urine culture was done that shows E. coli UTI, with multidrug resistance. ASSESSMENT: 1. Multidrug resistant urinary tract infection. 2. Dementia. 3. Renal cell carcinoma. 4. Mitral valve replacement. 5. Aortic valve replacement. 6. Chronic atrial fibrillation. 7. Hypertension. PLAN: Currently, the patient is on IV fluid. She is eating fair. We will give her 3 mg of Coumadin today. health services rn are in the process of making arrangement for subacute through long-term. Once arrangement is made, she will be discharged later on today. She will resume all her medications. We will discontinue IV fluid upon discharge and she will be given meropenem as recommended by ID. Charito Dale MD
--- NOTE | 2018-07-31 15:27 | CP.PCM.PN ---
Subjective - Date & Time of Evaluation Date of Evaluation: 07/31/18 Time of Evaluation: 15:21 - Subjective Subjective: Hematology/Oncology Progress Note (Dr. Walter's Service) Patient seen and assessed at bedside. No acute events noted overnight per nurs ing staff or patient. Patient is noted to be a poor historian but denies any complaints at this time including fevers, chills, headache, chest pain, SOB, abdominal pain, N/V/D/C, changes in urine output, or any skin changes. Objective - Vital Signs/Intake and Output Vital Signs (last 24 hours): Temp Pulse Resp BP Pulse Ox 97.6 F 87 20 104/61 96 07/31/18 14:00 07/31/18 14:00 07/31/18 14:00 07/31/18 14:00 07/31/18 14:00 - Medications Medications: Current Medications Acetaminophen (Tylenol 325mg Tab) 650 mg PO Q4H PRN PRN Reason: Pain, Mild (1-3) Last Admin: 07/30/18 11:43 Dose: 650 mg Donepezil HCl (Aricept) 5 mg PO HS [facility] Last Admin: 07/30/18 21:39 Dose: 5 mg Meropenem/Sodium Chloride (Merrem Iv 500 Mg/Ns 50 Ml) 500 mg in 50 mls @ 100 mls/hr IVPB Q8 [facility]; Protocol Last Admin: 07/31/18 13:26 Dose: 100 mls/hr Lamotrigine (Lamictal) 100 mg PO BID [facility]; Protocol Last Admin: 07/31/18 10:54 Dose: 100 mg Lorazepam (Ativan) 0.25 mg PO Q6 PRN; Protocol PRN Reason: Agitation Last Admin: 07/26/18 02:12 Dose: 0.25 mg Lorazepam (Ativan) 0.5 mg IVP Q6H PRN; Protocol PRN Reason: Anxiety Losartan Potassium (Cozaar) 25 mg PO DAILY [facility] Last Admin: 07/31/18 10:55 Dose: 25 mg Metoprolol Tartrate (Lopressor) 25 mg PO BID [facility] Last Admin: 07/31/18 10:55 Dose: 25 mg Mirtazapine (Remeron) 15 mg PO HS [facility] Last Admin: 07/30/18 21:39 Dose: 15 mg Warfarin Sodium (Coumadin) 5 mg PO 1800 [facility]; Protocol - Labs Labs: 07/28/18 09:30 07/28/18 09:30 PT 19.0 SECONDS (9.4-12.5) H 07/31/18 08:45 INR 1.64 07/31/18 08:45 APTT 40.7 Seconds (25.1-36.5) H 07/23/18 00:45 - Constitutional Appears: Non-toxic, No Acute Distress - Head Exam Head Exam: ATRAUMATIC, NORMOCEPHALIC - Eye Exam Eye Exam: EOMI - ENT Exam ENT Exam: Mucous Membranes Moist - Neck Exam Neck Exam: Full ROM - Respiratory Exam Respiratory Exam: Clear to Ausculation Bilateral, NORMAL BREATHING PATTERN. absent: Rales, Rhonchi, Wheezes, Respiratory Distress - Cardiovascular Exam Cardiovascular Exam: Irregular Rhythm, +S1, +S2 - GI/Abdominal Exam GI & Abdominal Exam: Distended (Moderately distended; Noted to be chronic), Soft, Normal Bowel Sounds. absent: Tenderness - Extremities Exam Extremities Exam: absent: Calf Tenderness - Neurological Exam Neurological Exam: Alert, Awake - Psychiatric Exam Psychiatric exam: Normal Affect, Normal Mood - Skin Skin Exam: Dry, Intact, Normal Color, Warm Assessment and Plan - Assessment and Plan (Free Text) Assessment: 87 year old female with a past medical history significant for renal cell carcinoma (clear cell) recently diagnosed on 05/09/18, atrial fibrillation s/p pacemaker on Coumadin, AVR, MVR, CAD, HTN, dementia and hypothyroidism who presented after a fall. Patient completed a seven day course of Merrem for UTI and is being worked up for syncope by Neurology. Patient will need to obtain a PET/CT as an outpatient for further workup and staging of her renal cell carcinoma. Plan: -Completed seven day course of Merrem completed; Further recommendations per ID -Continue evaluation for syncope as per Neurology -Will need PET/CT as an outpatient; Patient's family aware of this and agreed to have this done -Further recommendations as per Dr. Walter Patient seen and case discussed with attending, Dr. Walter. Tae Rudolph PGY2
--- NOTE | 2018-07-31 19:22 | PN ---
DATE: SUBJECTIVE: The patient is 87 years old, seen and examined sitting in chair, seems to be comfortable, not as agitated, wants to go home but does not have insight to her issue. PHYSICAL EXAMINATION: VITAL SIGNS: She is afebrile, pulse 60, respiration 20 and blood pressure 112/58. LUNGS: Bilateral fair airflow. No rhonchi or crackle. HEART: S1 and S2 audible. ABDOMEN: Soft and nontender. No rebound. No guarding. NEUROLOGIC: The patient is awake, alert, but not oriented. She is forgetful, keep on repeating the same question. EXTREMITIES: Bilateral leg, no edema. LABORATORY DATA: Had PT 19 and INR 1.64. ASSESSMENT: 1. Status post altered mental status. 2. Escherichia coli urinary tract infection, with multidrug resistance. 3. Hypertension. 4. Hyperlipidemia. 5. Worsening dementia. 6. Status post aortic valve replacement. 7. Status post mitral valve replacement. 8. Chronic atrial fibrillation. PLAN: We will continue current medication, I will give 5 mg of Coumadin today and we will followup PT/INR. medical staff services manager are in the process of making arrangement to be transferred to subacute rehab to long-term placement. Charito Dale MD
--- NOTE | 2018-07-31 20:19 | PN ---
DATE: 07/31/2018 SUBJECTIVE: The patient is in bed in no acute distress. PHYSICAL EXAMINATION VITAL SIGNS: Temperature is 97, blood pressure is 104/60, respiratory rate 20, heart rate of 60. HEENT: Unremarkable. NECK: Supple. LUNGS: Decreased breath sounds. HEART: Normal S1, S2. ABDOMEN: Soft, nontender. LABORATORY EXAMINATION: Reveals a white count of 7.9, BUN of 11, creatinine of 1.1. Urinalysis is noted and microbiology reveals the E. coli in the urine culture, sensitive to ertapenem, sensitive to cefazolin, cefepime, meropenem and Zosyn. ALLERGIES: THE PATIENT IS ALLERGIC TO PENICILLIN. ASSESSMENT AND PLAN: An 87-year-old female seen earlier this morning with coronary artery disease, hypertension, dementia, aortic valve replacement, mitral valve replacement, renal mass, hypothyroidism, kidney biopsy, found to have Escherichia coli urinary tract infection, resistant to Cipro and Bactrim. There are no by mouth options available since THE PATIENT IS ALLERGIC TO PENICILLIN. Today is day #7 of meropenem. We will discontinue the antibiotics after today's last dose. Zeyad Rausch MD
[2018-07-31 22:50] VITALS: RESP 18
[2018-08-01] MEDS: MEROPENEM 500 MG in NS 500 MG/50 ML BAG IVPB SCH (05:54)
[2018-08-01 08:11] VITALS: BP 146/60; PULSE 97; TEMP 98.3; O2SAT 96
[2018-08-01 10:00] LABS: INR 1.37; PARTIAL THROMBOPLASTIN TIME 32.7 Seconds (25.1-36.5); PROTHROMBIN TIME 15.9 SECONDS (9.4-12.5)
--- NOTE | 2018-08-01 12:04 | PN ---
DATE: 08/01/2018 SUBJECTIVE: The patient is in bed, in no acute distress, nontoxic. PHYSICAL EXAMINATION: VITAL SIGNS: On exam, temperature is 98, blood pressure is 140/60, respiratory rate of 18. HEENT: Examination of HEENT is unremarkable. NECK: Supple. LUNGS: Have decreased breath sounds. HEART: Normal S1, S2. ABDOMEN: Soft. LABORATORY DATA: Laboratory examination reveals the E. coli in the urine culture. White count of 7.9. Review of orders reveals the patient to be on meropenem. ASSESSMENT AND PLAN: An 87-year-old female, seen earlier today in 562, bed 1 with coronary artery disease, hypertension, dementia, aortic valve replacement, mitral valve replacement, renal mass, hypothyroidism, kidney biopsy, found to have Escherichia coli urinary tract infection, resistant to Cipro and Bactrim. There are no antibiotic p.o. options available. The patient is allergic to penicillin. The patient received 8 days. We will discontinue the meropenem. Recommended days of 7 days and today is the eighth day. We will discontinue meropenem. No further antibiotics. Zeyad Rasuch MD
--- NOTE | 2018-08-02 03:34 | DS ---
HISTORY OF PRESENT ILLNESS: The patient is 87 years old, who was brought to the emergency room after family found her on the floor. Workup was done, found to have E. coli UTI, had multidrug resistance UTI, has been on IV meropenem. The patient's family stated that she has been increasingly weak and has been confused, so she is not capable of living herself. Family requested for long-term placement, so the patient currently was receiving IV antibiotic and social media content manager made arrangement for her subacute rehab to long-term placement. PAST MEDICAL HISTORY: Significant for: 1. Seizure disorder. 2. Status post mitral valve replacement. 3. Status post aortic valve replacement. 4. Chronic atrial fibrillation. 5. Hypertension. 6. Dementia. ALLERGIES: SHE IS ALLERGIC TO ASPIRIN, PENICILLIN AND FISH. MEDICATION: Medications at home, she is on losartan, donepezil, simvastatin, Lamictal, Coumadin, metoprolol, lorazepam and Remeron. PHYSICAL EXAMINATION: GENERAL: On examination today, she is awake and alert, stays calm. VITAL SIGNS: She is afebrile, pulse 97, respirations 18 and blood pressure 146/60. LUNGS: Bilateral fair airflow. No rhonchi or crackle. HEART: S1 and S2, audible. ABDOMEN: Soft and nontender. No rebound. No guarding. NEUROLOGICAL: She is awake and alert, but somewhat confused. LABORATORY DATA: Her PT yesterday was 15.9 and INR 1.37. ASSESSMENT: 1. Status post altered mental status, secondary to Escherichia coli urinary tract infection. 2. Hypertension. 3. Coronary artery disease. 4. Seizure disorder. 5. Mitral valve and aortic valve replacement. 6. Chronic atrial fibrillation. PLAN: She will be given Coumadin 6 mg today. We will continue all other medications. She will be transferred to subacute rehab today later on. Charito Dale MD
[2018-08-02 08:44] LABS: INR 1.52; PROTHROMBIN TIME 17.6 SECONDS (9.4-12.5)
--- NOTE | 2018-08-02 10:45 | PN ---
DATE: 08/02/2018 SUBJECTIVE: The patient is in bed, in no acute distress, nontoxic. PHYSICAL EXAMINATION: VITAL SIGNS: Temperature is 98, blood pressure is 140/60, respiratory rate of 18. HEENT: Examination of HEENT is unremarkable. NECK: Supple. LUNGS: Have decreased breath sounds. HEART: Normal S1 and S2. ABDOMEN: Soft. LABORATORY DATA: Laboratory examination is noted. Cultures, E. coli in the urine is noted. Review of orders reveals the patient is now off of antibiotics. ASSESSMENT AND PLAN: An 87-year-old who was seen earlier, off of antibiotics, possible discharge. The patient had refused to go to the rehabilitation yesterday and the patient who has dementia, aortic valve replacement, mitral valve replacement, renal mass, hypothyroidism, kidney biopsy, Escherichia coli urinary tract infection, resistant to Cipro and Bactrim. Completed meropenem therapy because she is allergic to penicillin. Currently, off of antibiotics. Zeyad Rausch MD
--- NOTE | 2018-08-03 08:49 | DS ---
HISTORY OF PRESENT ILLNESS: The patient is 87-year-old, seen and examined. The patient was agitated last night appears to go to subacute rehab; however, she looks more comfortable today. PHYSICAL EXAMINATION: VITAL SIGNS: She is afebrile, pulse 97, respirations 18 and blood pressure 146/60. LUNGS: Bilateral fair airflow. No rhonchi or crackle. HEART: S1 and S2 audible. ABDOMEN: Soft and nontender. No rebound. No guarding. NEUROLOGIC: The patient is sleepy, but arousable. LABORATORY DATA: Her PT 17.6 and INR 1.52. ASSESSMENT: 1. Altered mental status. 2. Worsening dementia. 3. Mitral valve replacement. 4. Aortic valve replacement. 5. Chronic atrial fibrillation. 6. Renal cell carcinoma, recently diagnosed by biopsy. 7. Hypertension. 8. Hyperlipidemia. PLAN: The patient is being transferred to subacute rehab out of town in [place] and that is close to her son's place. She will resume her oral medication as she was getting during her stay here. Although, the patient has E. coli, UTI. She received full course of meropenem. There is no more need for any further antibiotics. Charito Dale MD
== END 2018-08-02 14:34 | DRG 690 ==
LOC: ED 00:20 → ERH 03:10 → 2RSO 03:56 → 5RNO 07-24 18:28
PROVIDERS: ADMIT Internal Medicine; ATTEND Internal Medicine
DX: N39.0 Urinary tract infection, site not specified (principal); F03.91 Unspecified dementia, unspecified severity, with behavioral disturbance; C64.2 Malignant neoplasm of left kidney, except renal pelvis; I11.0 Hypertensive heart disease with heart failure; E11.9 Type 2 diabetes mellitus without complications; E03.9 Hypothyroidism, unspecified; W19.XXXA Unspecified fall, initial encounter; Z95.2 Presence of prosthetic heart valve; I25.10 Atherosclerotic heart disease of native coronary artery without angina pectoris; Z87.891 Personal history of nicotine dependence; Z95.0 Presence of cardiac pacemaker; R45.1 Restlessness and agitation; I48.2 Chronic atrial fibrillation; G62.9 Polyneuropathy, unspecified; B96.20 Unspecified Escherichia coli [E. coli] as the cause of diseases classified elsewhere; D50.9 Iron deficiency anemia, unspecified; E86.0 Dehydration; Z16.24 Resistance to multiple antibiotics; E78.5 Hyperlipidemia, unspecified; F41.9 Anxiety disorder, unspecified; G40.909 Epilepsy, unspecified, not intractable, without status epilepticus; I50.9 Heart failure, unspecified; M19.90 Unspecified osteoarthritis, unspecified site; R31.0 Gross hematuria; Z16.23 Resistance to quinolones and fluoroquinolones; Z78.1 Physical restraint status; Z79.01 Long term (current) use of anticoagulants; Z79.899 Other long term (current) drug therapy; Z88.0 Allergy status to penicillin; Z98.84 Bariatric surgery status; Z88.6 Allergy status to analgesic agent; Z91.013 Allergy to seafood